=== PATIENT | male | born 1945 | race Two or more races ===

== ENCOUNTER 2024-01-30 12:13 | Outpatient (AMB) | payer OTHER, SELFPAY ==
--- NOTE | 2024-01-30 12:16 | HO.NEPHOV ---
Vital Signs 01/30/24 12:17 Height 5 ft 6 in Weight 197 lb 6 oz BMI 31.9 BP 118/80 Blood Pressure Location Lt brachial Position Sitting Pulse 68 Pulse Source Pulse Oximeter Pulse Oximetry (%) 96 Oxygen Delivery Method Room Air Intake Visit Reasons: Continuing care-Renal Stone/Renal cyst Dairy Manufacturing Technologist Required: Yes Dairy Manufacturing Technologist Services: Dairy Manufacturing Technologist Present Accompanied by: Self / Same As Patient Allergies No Known Allergies Allergy (Verified 01/30/24 12:19) HPI Comments Details: I had the privilege of seeing Kirby with history of renal stones and renal cysts. He had moved from [place] about 5 years ago. He has not had any symptomatic episode of renal calculus for a long time. He is a diabetic and has hypertension. He does not take nonsteroidal anti-inflammatories on a regular basis and try to maintain good hydration. He does not have any hematuria, edema, hypercalcemia. His serum creatinine been stable , last one being 1.16. He did not have any new systemic complaints at the time of this office visit. [facility] Medical History (Updated 01/30/24 @ 12:29 by Paul Whyte MD) Transient cerebral ischemia Primary open angle glaucoma Parkinson's disease Meckels diverticulum Hypothyroidism Hypercholesterolemia Fatty liver Hypertension Diverticulitis DM w/o complication type II Renal cyst Age-related nuclear cataract, bilateral Surgical History (Updated 01/30/24 @ 08:48 by Zena Pinto MA) History of colonoscopy Social History (Updated 01/30/24 @ 12:23 by Zena Pinto MA) Alcohol intake: never Patient Tobacco Use Status: Never used Tobacco Use of substances other than those prescribed or required for medical reasons: No Review of Systems Const All systems reviewed & are unremarkable except as noted in HPI and below Physical Exam Vital Signs: Last Vital Signs Pulse 68 01/30/24 12:17 BP 118/80 01/30/24 12:17 Pulse Ox 96 01/30/24 12:17 Oxygen Delivery Method Room Air 01/30/24 12:17 BMI result Body Mass Index 31.9 Const General: comfortable and no acute distress Orientation/consciousness: patient oriented x3 HEENT Head: Yes normocephalic Mouth: Normal oral and palatal mucosa present Eyes EOM: EOMs intact bilaterally Neck Neck: Yes supple Resp Auscultation: clear to auscultation bilaterally Cardio Jugular venous distension: no JVD Rate: regular rate GI Palpation (GI): Soft to palpation Auscultation: normal bowel sounds General: Yes no CVA tenderness Back/Spine/Pelvis Back: no CVA tenderness Skin General skin exam: no rashes or lesions noted Neuro General: patient oriented x3 and moves all extremities Extrem General: Yes no pedal edema Results Reviewed Nephrology Results: No Data to Display Assessment & Plan Assessment & Plan (1) Renal calculus: Code(s): N20.0 - Calculus of kidney Category: Medical (2) Renal cyst: Code(s): N28.1 - Cyst of kidney, acquired Category: Medical (3) Hypertension: Code(s): I10 - Essential (primary) hypertension Category: Medical Qualifiers: Hypertension type: primary hypertension Qualified Code(s): I10 - Essential (primary) hypertension Plan Kirby has history hypertension, renal cyst and renal calculus. His blood pressure is at goal. He has no family history of renal stones or renal cyst. He has no family history of any cystic renal disease, ESRD or renal transplant. His renal functions is stable with serum creatinine of 1.16. His blood pressure is at goal. He is tolerating SILVIA-inhibitor. He has no proteinuria. He should maintain good hydration and keep with low-sodium diet. He should maintain appropriate blood sugar and blood pressure goals. He should eat more fruits and vegetables and consume less meat. He may need hydrochlorothiazide and or potassium citrate in the future. I plan to order imaging of his kidneys after next visit. I did not make any medication changes today. Follow-up appointment given. Answered all questions. Orders: Orders Calcium Today I10 - Essential (primary) hypertension, N20.0 - Calculus of kidney, N28.1 - Cyst of kidney, acquired Creatinine Today I10 - Essential (primary) hypertension, N20.0 - Calculus of kidney, N28.1 - Cyst of kidney, acquired Creatinine 6 Months I10 - Essential (primary) hypertension, N20.0 - Calculus of kidney, N28.1 - Cyst of kidney, acquired Electrolytes Today I10 - Essential (primary) hypertension, N20.0 - Calculus of kidney, N28.1 - Cyst of kidney, acquired Blood Urea Nitrogen Today I10 - Essential (primary) hypertension, N20.0 - Calculus of kidney, N28.1 - Cyst of kidney, acquired Blood Urea Nitrogen 6 Months I10 - Essential (primary) hypertension, N20.0 - Calculus of kidney, N28.1 - Cyst of kidney, acquired Electrolytes 6 Months I10 - Essential (primary) hypertension, N20.0 - Calculus of kidney, N28.1 - Cyst of kidney, acquired Coding Level of Care Code Est Pt Level 4 (54814) Diagnoses Renal calculus N20.0 Renal cyst N28.1 Primary hypertension I10 Hypertension type: primary hypertension
[2024-01-30 12:17] VITALS: BP 118/80; PULSE 68; O2SAT 96; BMI 31.9
== END 2024-01-30 12:43 | disposition home or self-care (01) ==
PROVIDERS: PCP Physician Assistant Medical; Visit Provider Internal Medicine Nephrology
DX: N20.0 Calculus of kidney (principal); N28.1 Cyst of kidney, acquired; I10 Essential (primary) hypertension
CPT/HCPCS: 99214

== ENCOUNTER → 2024-01-30 12:13 | Outpatient (BNVA) | payer OTHER, SELFPAY | PROVIDERS: PCP Physician Assistant Medical; Visit Provider Internal Medicine Nephrology | DX: N20.0 Calculus of kidney (principal); N28.1 Cyst of kidney, acquired; E11.9 Type 2 diabetes mellitus without complications; I10 Essential (primary) hypertension | CPT/HCPCS: 99212 ==

== ENCOUNTER 2024-08-15 08:48 | Outpatient (REF) | payer OTHER, SELFPAY ==
--- OUTSIDE RECORDS SUMMARY | 2024-08-15 09:01 | XMS_ITS | Encounter Summary ---
Author Organization [facility] Address [address] [place] [address] Care Team Providers Care Certified Lactation Educator Name Role Phone Fidencio Gray PA-C Primary Care Provider [phone] Reason for Visit * Reason Comments Dental Diagnostic Exam L-side cheek larg e round red area 2days Encounter Details Date Type Department Care Team (Late st Contact Info) Description 08/08/2024 11:00 AM EST Office Visit [facility] [address] [place] [phone] Candice Gonzalez Y [address] [place] [address] Encounter for dental examination (Primary Dx); Ill-fitting dentures Social History Tobacco Use Types Packs/Day Years Used Date Smoking Tobacco: Never Smokeless Tobacco: Never Alcohol Use Standard Drinks/Week Comments Never 0 (1 standard drink = 0.6 oz pur e alcohol) Social Connections Answer Date Recorded Connectedness 1 01/15/2024 Financial Resource Strain Answer Date R ecorded Financial Resource Strain 1 2023 Stress Answer Date Recorded Stress 1 01/15/2024 Physical Activity Answer Date Recorded Physical Activity 0 09/23/2020 Food Insecurity Answer Date Recorded Food 1 01/15/2024 Transportation Needs Answer Date Record ed Transportation 1 01/15/2024 Housing Stability Answer Date Recorded Housing 1 01/15/2024 Safety and Environment Answer Date Francesco rded Safety 1 09/13/2023 Utilities Answer Date Recorded Utilities 1 01/15/2024 Employment Answer Date Recorded Stress 0 09/23/2020 Sex and Gender Information Value Date Recorded Sex Assigned at Male 01/10/2019 11:27 AM PDT Legal Sex Male 8:34 AM PDT Gender Identity Male 01/10/2019 11:27 AM PDT Sexual Orientation Straight 01/10/2019 11 :27 AM PDT documented as of this encounter Progress Notes * Candice Gonzalez - 08/08/2024 11:21 AM EST Patient: Kirby Robb : 1945 08/08/2024 11:23 AM EST Dental Limited Exam Chief Complaint Patient presents with ??? Dental Diagnostic Exam L-side cheek large round red area 2days Alerts: None Allergies: Patient has no known allergies. 03/21/2024 2:12 PM BP (!) 150/102 Pulse (!) 101 Radiographs:NA Subjective: Chief Complaint: L-side large bump Duration: 2 day(s) Objective: Clinical/Radiographic findings: Likely traumatic lesion l-side buccal mucosa Plan/Tx: Limited exam. Discussed with pt findings, treatment options, risks, benefits, alternatives. examined the patient Dx likely traumatic lesion, possibly due to ill fitting lower denture. Dr. Barney recommends exam for denture fitting check and follow up in 2-3wks if not improved a biopsy is advised. Referral: None Rx: No orders of the defined types were placed in this encounter. Next Visit: 3wks follow up Tissue check of buccal mucosa l-side Exam to check for ill fitting dentures EILEEN Lovett/Dr. Barney documented in this encounter Miscellaneous Notes * Patient Instructions - Candice Gonzalez - 08/08/2024 11:30 AM EST If you are not able to keep your appointment please call [phone] hours before your appointment to cancel or reschedule. documented in this encounter Plan of Treatment Upcoming Encounters Date Type Department Care Team (Late st Contact Info) Description 08/29/2024 9:00 AM EST Office Visit [facility] [address] [place] [phone] Donato Marshall DDS [address] [place] [address] documented as of this encounter Procedures Procedure Name Priority Date/Time Associated Diagnosis Comments CASE PRESENTATION SUBS DTL & EXTENSIVE TX PLN Routine 08/08/2024 11:00 AM EST Encounter for dental examination LIMITED ORAL EVALUATION - PROBLEM FOCUSED Routine 08/08/2024 11:00 AM EST Encounter for dental examination Mikhail COMPLETE DENTURE - MANDIBULAR Routine 08/08/2024 12:00 AM EST Max COMPLETE DENTURE - MAXILLARY Routine 08/08/2024 12:00 AM EST documented in this encounter Visit Diagnoses Diagnosis Encounter for dental examination- Primary Dental examination Ill-fitting dentures Problems with swallowing and mastication documented in this encounter Additional Health Concerns Assessment Noted Time PHQ-9 Depression Total Score: 0 09/13/19 24 9:01 AM PDT documented as of this encounter Care Teams Certified Lactation Educator Relationship Specialty Start Date End Date Fidencio Gray PA-C [address] [place] [address] PCP - General FAMILY MEDICINEEMMANUEL 08/26/20 documented as of this encounter
--- OUTSIDE RECORDS SUMMARY | 2024-08-15 09:01 | XMS_ITS | Clinical Summary ---
Author Organization [facility] Address [address] [place] [address] Care Team Providers Care Airplane Fueler Name Role Phone Fidencio Gray PA-C Primary Care Provider Source Comments PLEASE NOTE, if this patient is a minor, it may be UNLAWFUL to discuss sensitive information that is contained in these records (such as FAMILY PLANNING, MENTAL HEALTH or SUBSTANCE ABUSE) with the minor patient's parent or other person without the patient's specific authorization.[facility] Allergies No known active allergies Medications latanoprost (XALATAN) 0.005 % ophthalmic solution 12/15/19 21 Active timoloL (BETIMOL) 0.5 % ophthalmic solution INSTILL 1 DROP INTO BOTH EYES EVERY MORNING 07/03/19 23 Active blood sugar diagnostic stripsIndications :Controlled type 2 diabetes mellitus without complication, without long-term current use of insulin ([facility]) Use to test blood sugar once daily 100 Each 3 09/13/19 24 Active lancets (FREESTYLE LANCETS) 28 gaugeIndications: Controlled type 2 diabetes mellitus without complication, without long-term current use of insulin ([facility]) Use to check blood sugar once daily 100 Each 3 09/13/19 24 Active blood-glucose meter monitoring kitIndications:Co ntrolled type 2 diabetes mellitus without complication, without long-term current use of insulin ([facility]) as needed for blood glucose monitoring Freestyle 1 Each 09/13/19 24 Active MISCELLANEOUS MEDICAL SUPPLY MISCIndications:E ssential hypertension by miscellaneous route once daily as needed (blood pressure monitoring) Supply: 1 adult regular blood pressure monitor JUANITO: 99 Dx: htn 1 Each 09/13/19 24 Active clotrimazole (LOTRIMIN) 1 % creamIndications: Onychomycosis of multiple toenails with type 2 diabetes mellitus ([facility]) Apply topically 2 (two) times daily 15 g 2 09/13/19 24 Active cetirizine (ZYRTEC) 10 mg tabletIndications :Allergic rhinitis, unspecified seasonality, unspecified trigger TOME MARTIN TABLETA TODOS LOS MEJÍA 90 Tablet 1 01/15/20 24 Active SENNA 8.6 mg tablet TOME MARTIN TABLETA TODOS LOS D ASS Authorized by: RICK FERREIRA 01/21/20 24 Active hydrocortisone 2.5 % cream APPLY TO FACE 2 TIMES DAILY NEEDED FOR FLARES DECREASE TO DAILY/EVERY OTHER IMPROVES Authorized by: GAYLE QUINN 11/16/19 24 Active primidone (MYSOLINE) 50 mg tabletIndications :Parkinson's disease, unspecified whether dyskinesia present, unspecified whether manifestations fluctuate ([facility]) TOME 1 TABLETA POR VIA ORAL TODOS LOS MEJÍA AL ACOSTARSE 90 Tablet 1 06/03/20 24 Active lisinopriL 20 mg tabletIndications :Essential hypertension TOME 1 TABLETA POR VIA ORAL TODOS LOS MEJÍA 90 Tablet 1 06/21/20 [address] Active aspirin [address] tabletIndications :Essential hypertension TOME 1 TABLETA POR VIA ORAL TODOS LOS MEJÍA 90 Tablet 1 06/21/20 24 Active famotidine (PEPCID) 40 mg tabletIndications :Gastroesophageal reflux disease, unspecified whether esophagitis present TOME 1 TABLETA POR VIA ORAL TODOS LOS MEJÍA 90 Tablet 1 06/29/20 24 Active atorvastatin (LIPITOR) 40 mg tabletIndications :Hypercholesterol emia TOME 1 TABLETA POR VIA ORAL TODOS LOS MEJÍA AL ACOSTARSE 90 Tablet 1 06/29/20 24 Active levothyroxine 100 mcg tabletIndications :Hypothyroidism, unspecified type Take 1 Tablet by mouth once daily 90 Tablet 1 07/29/19 25 Active zolpidem (AMBIEN) 5 mg tabletIndications :Primary insomnia Take 1 Tablet by mouth nightly at bedtime as needed for sleep 30 Tablet 5 07/29/19 25 Active ipratropium-albut Hailey (COMBIVENT RESPIMAT) 20-100 mcg/actuation inhalerIndication s:Bronchitis Inhale 1 Puff into the lungs 4 (four) times daily 4 g 3 08/14/19 25 Active SITagliptin phosphate (JANUVIA) 100 mg tabletIndications :Controlled type 2 diabetes mellitus without complication, without long-term current use of insulin ([facility]) TOME MARTIN TABLETA TODOS LOS MEJÍA 90 Tablet 1 08/14/19 25 Active emollient combination no.43 (PROMISEB) creaIndications:X erosis of skin Apply 1 Application topically nightly at bedtime 30 g 2 08/14/19 25 Active ipratropium-albut Hailey (COMBIVENT RESPIMAT) 20-100 mcg/actuation inhalerIndication s:Bronchitis Inhale 1 Puff into the lungs 4 (four) times daily 4 g 3 01/15/20 24 025 Discontin ued(Reord er (E-Cancel Not Sent)) levothyroxine 100 mcg tabletIndications :Hypothyroidism, unspecified type Take 1 Tablet by mouth once daily 90 Tablet 1 01/15/20 24 025 Discontin ued(Reord er (E-Cancel Not Sent)) SITagliptin phosphate (JANUVIA) 100 mg tabletIndications :Controlled type 2 diabetes mellitus without complication, without long-term current use of insulin ([facility]) TOME MARTIN TABLETA TODOS LOS MEJÍA 90 Tablet 1 01/15/20 24 025 Discontin ued(Reord er (E-Cancel Not Sent)) zolpidem (AMBIEN) 5 mg tabletIndications :Primary insomnia Take 1 Tablet by mouth nightly at bedtime as needed for sleep 30 Tablet 5 01/15/20 24 025 Discontin ued(Reord er (E-Cancel Not Sent)) Active Problems Problem Noted Date Diagnosed Date Aspirin long-term use 08/07/2023 Squamous cell carcinoma, face 08/07/2023 History of actinic keratoses 04/19/2023 Renal stone 07/26/2022 10/18/2022 Controlled type 2 diabetes m ellitus without complication, without long-term current use of insulin ([facility]) 01/13/2022 Obesity, Class I, BMI 30-34.9 01/13/2022 Pre-operative clearance 01/08/2021 Primary open angle glaucoma (POAG) of both eyes, moderate stage 04/30/2019 Age-related nuclear cataract of both eyes 2018 TIA (transient ischemic attack) 04/30/2019 Overview (04/30/2019): Pt had TIA 2016 Essential hypertension 01/10/2019 Hypercholesterolemia 01/10/2019 Parkinson's disease ([facility]) 01/10/2019 Hypothyroidism 01/10/2019 History of colonoscopy 01/10/2019 Overview (01/10/2019): Done in [place] per pt 2017 Encounters Date Type Department Care Team Description 08/14/2024 2:00 PM EST Office Visit [facility] [address] [place] [phone] Fidencio Gray PA-C Hypothyroidism, unspecified type (Primary Dx); Essential hypertension; Hypercholesterolemia; Controlled type 2 diabetes mellitus without complication, without long-term current use of insulin ([facility]); Bronchitis; Xerosis of skin 08/08/2024 11:00 AM EST Office Visit [facility] [address] [place] [phone] Candice Gonzalez Encounter for dental examination (Primary Dx); Ill-fitting dentures from Last 3 Months Immunizations Name Administration Dates Next Due Flu, High Dose, 65y+, Fluzon e High Dose 06/08/2023,04/27/2021,03/10/2020,0902/2020 Flu, Preservative Free 04/19/2022 Hep B, Adult/Adol (ENERGIX/RECOMBIVAX) 07/23/2019,06/21/2019 12/23/2019 Hep B,adult,adjuvanted (HEPLISAV) 05/22/2023 Influenza (FLUZONE), high-do se, trivalent, PF 05/15/2024,06/28/2019,06/28/2019 Moderna COVID-19 Vaccine, re d cap blue label, 12+ Primary Series 02/16/2022,06/07/2021,09/12/2020,08/03 PNEUMOCOCCAL CONJUGATE PCV 13 06/21/2019 PNEUMOCOCCAL POLYSACCHARIDE PPV23 04/27/2021 TDAP 06/21/2019 ZOSTER VACCINE, RECOMBINANT (SHINGRIX) 10/18/2022,07/20/2022 Family History Medical History Relation Name Comments High Cholesterol Sister Hypertension Sister Relation Name Status Comments Brother Alive Father Mother Sister Alive Social History Tobacco Use Types Packs/Day Years Used Date Smoking Tobacco: Never Smokeless Tobacco: Never Tobacco Cessation:Counseling Given: No Alcohol Use Standard Drinks/Week Comments Never 0 (1 standard drink = 0.6 oz pur e alcohol) Social Connections Answer Date Recorded Connectedness 1 08/14/2024 Financial Resource Strain Answer Date R ecorded Financial Resource Strain 1 2024 Stress Answer Date Recorded Stress 1 08/14/2024 Physical Activity Answer Date Recorded Physical Activity 0 09/23/2020 Food Insecurity Answer Date Recorded Food 1 08/14/2024 Transportation Needs Answer Date Record ed Transportation 1 08/14/2024 Housing Stability Answer Date Recorded Housing 1 08/14/2024 Safety and Environment Answer Date Francesco rded Safety 1 09/13/2023 Utilities Answer Date Recorded Utilities 1 08/14/2024 Employment Answer Date Recorded Stress 0 09/23/2020 Sex and Gender Information Value Date Recorded Sex Assigned at Male 01/10/2019 11:27 AM PDT Legal Sex Male 8:34 AM PDT Gender Identity Male 01/10/2019 11:27 AM PDT Sexual Orientation Straight 01/10/2019 11 :27 AM PDT Last Filed Vital Signs Vital Sign Reading Time Taken Comments Blood Pressure 132/80 08/14/2024 2:13 PM EST Pulse 70 08/14/2024 2:13 PM EST Temperature 36.6 ??C (97.9 ??F) 08/14/2024 2:13 PM ES T Respiratory Rate 18 08/14/2024 2:13 PM EST Oxygen Saturation 98% 08/14/2024 2:13 PM EST Inhaled Oxygen Concentration - - Weight 91 kg (200 lb 9.6 oz) 08/14/2024 2:13 PM EST Height 167.6 cm (5' 6 ) 08/14/2024 2:13 PM EST Body Mass Index 32.38 08/14/2024 2:13 PM EST Plan of Treatment Upcoming Encounters Date Type Department Care Team (Late st Contact Info) Description 08/29/2024 9:00 AM EST Office Visit [facility] [address] [place] [phone] Donato Marshall, DDS [address] [place] [address] Health Maintenance Due Date Last Done Comments Dental Examination [address] Colonography 1989 FIT/gFOBT 1989 Fecal DNA 1989 Flexible Sigmoidoscopy 1989 Diabetes Microalbumin (w/Creatinine) 11/01/2023 10/31/2022, 04/28/2021 Ndc-INAOG-04 ( season) 2024 02/16/2022, 06/07/2021, 09/12/2020, Additional history exists Diabetes HbA1c 03/15/2024 09/13/2023, 05/04, 10/31/2022, Additional history exists Lipid Screening 09/12/2024 09/13/2023, 050 07/2022, 07/20/2022, Additional history exists Medicare Annual Wellness Visit 09/12/2024 0 09/13/2023, 01/13/2022, 09/23/2020, Additional history exists Serum Creatinine 09/12/2024 09/13/2023, , 01/16/2023, Additional history exists TSH Monitoring 09/12/2024 09/13/2023, 12/31, 04/28/2021, Additional history exists Falls Prevention 01/14/2025 01/15/2024, , 09/23/2020, Additional history exists Tobacco Screening 01/14/2025 01/15/2024 Diabetes Foot Exam 04/05/2025 04/05/2024, 0 12/05/2023, 01/27/2023 Imm-DTaP/Tdap/Td (2 - Td or Tdap) 06/21/2029 019 Colonoscopy 04/27/2032 04/27/2022, 04/03, 03/06/2017 (Managed by Outside Provider) Colorectal Cancer Screening 04/27/2032 Imm-Pneumococcal 65+ Completed 04/27/2021, 06/21/20 Imm-Zoster, Recombinant Completed 10/18/2022, 07/20 Imm-Hepatitis B Completed 05/22/2023, 07/04, 06/21/2019 Imm-Influenza Completed 05/15/2024, 12/2022, 04/19/2022, Additional history exists Alcohol and Drug Screen Completed 08/14/19, 01/15/2024, 08/01/2023, Additional history exists Depression Annual Screen Completed 08/14/2024 Procedures Procedure Name Priority Date/Time Associated Diagnosis Comments LIMITED ORAL EVALUATION - PROBLEM FOCUSED Routine 08/08/2024 11:00 AM EST Encounter for dental examination CASE PRESENTATION SUBS DTL & EXTENSIVE TX PLN Routine 08/08/2024 11:00 AM EST Encounter for dental examination Mikhail COMPLETE DENTURE - MANDIBULAR Routine 08/08/2024 12:00 AM EST Max COMPLETE DENTURE - MAXILLARY Routine 08/08/2024 12:00 AM EST UPPER GI ENDOSCOPY (EGD) SCANNED DOCUMENT 07/15/2024 3:00 AM EST UPPER GI ENDOSCOPY (EGD) SCANNED DOCUMENT 07/15/2024 3:00 AM EST THYROID CASCADING REFLEX PANEL Routine 09/13/2023 9:40 AM EDT Annual physical exam Hypothyroidism, unspecified type COMPREHENSIVE METABOLIC PANEL Routine 09/13/2023 9:40 AM EDT Annual physical exam Controlled type 2 diabetes mellitus without complication, without long-term current use of insulin ([facility]) Hypercholesterolemia Essential hypertension LIPID PANEL Routine 09/13/2023 9:40 AM EDT Annual physical exam Controlled type 2 diabetes mellitus without complication, without long-term current use of insulin ([facility]) Hypercholesterolemia Essential hypertension HEMOGLOBIN GLYCOSYLATED A1C Routine 09/13/2023 9:40 AM EDT Annual physical exam Controlled type 2 diabetes mellitus without complication, without long-term current use of insulin ([facility]) MICROALBUMIN/CREATINI NE RATIO, URINE, RANDOM Routine 10/31/2022 8:38 AM EDT Controlled type 2 diabetes mellitus without complication, without long-term current use of insulin ([facility]) HISTORIC COLONOSCOPY 04/27/2022 3:00 AM EDT from Last 3 Months or Most Recently Relevant to Health Maintenance Results * UPPER GI ENDOSCOPY (EGD) SCANNED DOCUMENT (07/15/2024 3:00 AM EST) 07/15/2024 3:00 AM EST [employer] Gray PA-C SCAN PROCEDURES Final Result * UPPER GI ENDOSCOPY (EGD) SCANNED DOCUMENT (07/15/2024 3:00 AM EST) 07/15/2024 3:00 AM EST Bitstampr Gray PA-C SCAN PROCEDURES Final Result * THYROID CASCADING REFLEX PANEL (09/13/2023 9:40 AM EDT) TSH 1.94 0.40 - 4.50 mIU/L [facility] Blood Blood / Unknown 09/13/2023 9:40 AM EDT 09/13/2023 9:41 AM EDT Narrative [facility] - 09/14/2023 9:43 AM EDT FASTING:YES [employer] PA-C LAB - BLOOD DRAW Edited Resu lt - Final [facility] [address] [place] [phone], [facility] [address] [place] [phone] * (ABNORMAL) HEMOGLOBIN GLYCOSYLATED A1C (09/13/2023 9:40 AM EDT) HEMOGLOBIN A1C 6.4(H) <5.7 % of total Hgb [facility] Comment: For someone without known diabetes, a hemoglobin A1c value between 5.7% and 6.4% is consistent with prediabetes and should be confirmed with a follow-up test. For someone with known diabetes, a value <7% indicates that their diabetes is well controlled. A1c targets should be individualized based on duration of diabetes, age, comorbid conditions, and other considerations. This assay result is consistent with an increased risk of diabetes. Currently, no consensus exists regarding use of hemoglobin A1c for diagnosis of diabetes for children. Blood Blood / Unknown 09/13/2023 9 :40 AM EDT 09/13/2023 9:41 AM EDT Narrative [facility] - 09/14/2023 9:43 AM EDT FASTING:YES Fidencio Gray PA-C LAB - BLOOD DRAW Edited Resu lt - Final [facility] [address] [place] [phone], [facility] [address] [place] [phone] * (ABNORMAL) LIPID PANEL (09/13/2023 9:40 AM EDT) [facility] CHOLESTEROL, TOTAL 105 <200 mg/dL [facility] HDL CHOLESTEROL 34(L) > OR = 40 mg/dL [facility] TRIGLYCERIDES 99 <150 mg/dL [facility] LDL-CHOLESTEROL 53 99 mg/dL (calc) [facility] Comment: Reference range: <100 Desirable range <100 mg/dL for primary prevention; ?? <70 mg/dL for patients with CHD or diabetic patients with > or = 2 CHD risk factors. LDL-C is now calculated using the [place]-Bee calculation, which is a validated novel method providing better accuracy than the Friedewald equation in the estimation of LDL-C. [place] LECHUGA et al. ANAMARIA. 2013;310(19): 4811-7875 (http://education.[employer] Online/faq/JSF354) CHOL/HDLC RATIO 3.1 <5.0 (calc) [facility] NON-HDL CHOLESTEROL 71 <130 mg/dL (calc) [facility] Comment: For patients with diabetes plus 1 major ASCVD risk factor, treating to a non-HDL-C goal of <100 mg/dL (LDL-C of <70 mg/dL) is considered a therapeutic option. Blood Blood / Unknown 09/13/2023 9 :40 AM EDT 09/13/2023 9:41 AM EDT Narrative [employer] [facility] - 09/14/2023 9:43 AM EDT FASTING:YES Fidencio Grya PA-C LAB - BLOOD DRAW Final Resul t [employer] [facility] [address] [address], [employer] [facility] [address] [place] [phone] * (ABNORMAL) COMPREHENSIVE METABOLIC PANEL (09/13/2023 9:40 AM EDT) [facility] GLUCOSE 125(H) 65 - 99 mg/dL [employer] [facility] Comment: ?Fasting reference interval For someone without known diabetes, a glucose value between 100 and 125 mg/dL is consistent with prediabetes and should be confirmed with a follow-up test. UREA NITROGEN (BUN) 19 7 - 25 mg/dL [employer] CREATININE (blood) 1.19 0.70 - 1.28 mg/dL [employer] EGFR 62 > OR = 60 mL/min/1. 73m2 [employer] [facility] BUN/CREATININE RATIO SEE NOTE: [employer] [facility] Comment: ?? Not Reported: BUN and Creatinine are within ?? reference range. ? SODIUM 140 135 - 146 mmol/L [employer] [facility] POTASSIUM 4.5 3.5 - 5.3 mmol/L [facility] CHLORIDE 102 98 - 110 mmol/L [facility] CARBON DIOXIDE 31 20 - 32 mmol/L [facility] CALCIUM 9.8 8.6 - 10.3 mg/dL [facility] PROTEIN, TOTAL 7.3 6.1 - 8.1 g/dL [facility] ALBUMIN 4.4 3.6 - 5.1 g/dL [facility] GLOBULIN 2.9 1.9 - 3.7 g/dL (calc) [facility] ALBUMIN/GLOBULI N RATIO 1.5 1.0 - 2.5 (calc) [facility] BILIRUBIN, TOTAL 0.9 0.2 - 1.2 mg/dL [facility] ALKALINE PHOSPHATASE 79 35 - 144 U/L [employer] [facility] AST 22 10 - 35 U/L [facility] ALT 19 9 - 46 U/L [facility] Blood Blood / Unknown 09/13/2023 9 :40 AM EDT 09/13/2023 9:41 AM EDT Narrative [facility] [employer] [facility] - 09/14/2023 9:43 AM EDT FASTING:YES us Fidencio Gray PA-C LAB - BLOOD DRAW Final Resul t Performing Organization Address [facility] de Phone Number [employer] [address] [address], [employer] [address] [phone] * MICROALBUMIN/CREATININE RATIO, URINE, RANDOM (10/31/2022 8:38 AM EDT) CREATININE, RANDOM URINE 156 20 - 320 mg/dL [facility] MICROALBUMIN 0.8 mg/dL [employer] [facility] Comment: Reference Range Not established MICROALBUMIN/CREA TININE RATIO, RANDOM URINE 5 <30 mcg/mg creat [facility] Comment: The ADA defines abnormalities in albumin excretion as follows: Albuminuria Category ?Result (mcg/mg creatinine) Normal to Mildly increased ?? <30 Moderately increased ? 30-299 Severely increased ? > OR = 300 The ADA recommends that at least two of three specimens collected within a 3-6 month period be abnormal before considering a patient to be within a diagnostic category. Urine Urine specimen / Unknown 10/31/2022 8:38 AM EDT 10/31/2022 8:39 AM EDT us Fidencio Gray PA-C LAB - NO BLOOD DRAW Final Re sult Performing Organization Address [facility] Co de Phone Number [employer] [address] [address], [employer] [address] [phone] * HISTORIC COLONOSCOPY (04/27/2022 3:00 AM EDT) 04/27/2022 3:00 AM EDT Roberto Fiore MD PROCEDURES Final Result from Last 3 Months or Most Recently Relevant to Health Maintenance Insurance [facility] Member Subscriber Plan / Payer ( fective 2018-Present) Name:Kirby Fierro Relation to Subscriber:Self Name:Kirby Fierro Payer ID:[id number] Group ID:Not on file Type:Indemnity Address: [address] [place] [address] [facility] - DENTAL Care Teams Airplane Fueler Relationship Specialty Start Date End Date Fidencio Gray PA-C [address] [place] [address] PCP - General FAMILY MEDICINEEMMANUEL 08/26/20
--- OUTSIDE RECORDS SUMMARY | 2024-08-15 09:02 | XMS_ITS | Clinical Summary ---
Author Organization [facility] Address [address] [facility] [address] [place] [address] Phone Care Team Providers Care Material Scheduler Name Role Phone Fidencio Gray PA-C Primary Care Provider Allergies No known active allergies Medications Aspirin Low Dose 81 MG EC tablet Take 81 mg by mouth 1 (one) time each day 05/07/2022 Active atorvastatin (LIPITOR) 40 MG tablet Take 40 mg by mouth 1 (one) time each day 05/31/2022 Active famotidine (PEPCID) 40 MG tablet Take 40 mg by mouth 1 (one) time each day 04/19/2022 Active hydrOXYzine (ATARAX) 50 MG tablet Take 1 tablet by mouth at night if needed 06/16/2022 Active levothyroxine (SYNTHROID, LEVOTHROID) 100 MCG tablet Take 100 mcg by mouth 1 (one) time each day 06/04/2022 Active lisinopril 20 MG tablet Take 20 mg by mouth 1 (one) time each day 05/04/2022 Active loratadine (CLARITIN) 10 MG tablet Take 1 tablet by mouth 1 (one) time each day 07/05/2022 Active Januvia 100 MG tablet Take 100 mg by mouth 1 (one) time each day 06/28/2022 Active Ventolin HFA 108 (90 Base) MCG/ACT inhaler if needed 10/26/2022 Act jalyn acetaminophen (TYLENOL) 325 MG tablet if needed 10/23/2022 Active linaCLOtide (Linzess) 290 MCG capsule Take 1 tablet by mouth 1 (one) time each day Active Active Problems Problem Noted Date Diagnosed Date Renal stone 07/26/2022 Resolved Problems Problem Noted Date Diagnosed Date Resolved Date Fatty liver 04/21/2022 07/26/2022 Meckel's diverticulum 04/21/2022 01/24/ 2023 Bilateral age-related nuclear cataracts 04/30/2019 07/26/2022 Primary open angle glaucoma 04/30/2019 07/26/2022 Immunizations Name Administration Dates Next Due Hepatitis B 07/23/2019,06/21/2019 Influenza Split High Dose Pr eservative Free IM 06/28/2019 Influenza, Quadrivalent, Pre servative Free 04/19/2022 Moderna SARS-COV-2 02/16/2022, 1,09/12/2020,08/15 Pneumococcal Conjugate 13-Valent 06/21/2019 Pneumococcal Polysaccharide 04/27/2021 Shingrix 07/20/2022 Tdap 06/21/2019 Social History Tobacco Use Types Packs/Day Years Used Date Smoking Tobacco: Never Smokeless Tobacco: Never Tobacco Cessation:Counseling Given: Not Answered Alcohol Use Standard Drinks/Week Comments Never 0 (1 standard drink = 0.6 oz pur e alcohol) Sex and Gender Information Value Date Recorded Sex Assigned at Not on file Legal Sex Male 8:40 AM EDT Gender Identity Not on file Sexual Orientation Not on file Last Filed Vital Signs Vital Sign Reading Time Taken Comments Blood Pressure 120/70 01/26/2023 2:12 PM EDT Pulse 55 01/26/2023 2:12 PM EDT Temperature - - Respiratory Rate - - Oxygen Saturation - - Inhaled Oxygen Concentration - - Weight 92 kg (202 lb 12.8 oz) 01/26/2023 2:12 PM EDT Height - - Body Mass Index - - Plan of Treatment Health Maintenance Due Date Last Done Comments Influenza Vaccine (#1) 2024 2, 06/28/2019 Hepatitis B Vaccine Aged Out 07/23/2019, 06/21/2019 No longer eligible based on patient's age to complete this topic Pneumococcal Vaccine: 65+ Years Completed 04/27/2021, 06/21/2019 Insurance CARE DUAL SNP ([id number]) [facility] CARE DUAL SNP ([id number]) Care Teams Material Scheduler Relationship Specialty Start Date End Date Fidencio Gray PA-C [address] [place] [address] PCP - General Physician Professor Of Industrial Technology 04/20/22
--- OUTSIDE RECORDS SUMMARY | 2024-08-15 09:02 | XMS_ITS | Encounter Summary ---
Author Organization [facility] Address [address] [place] [address] Care Team Providers Care Senior Sales Director Name Role Phone Fidencio Gray PA-C Primary Care Provider Reason for Visit * Reason Comments Follow Up Follow up no concern Encounter Details Date Type Department Care Team ([facility] st Contact Info) Description 08/14/2024 2:00 PM EST Office Visit [facility] [address] [place] [phone] Fidencio Gray PA-C [address] [place], [place] [phone] Hypothyroidism, unspecified type (Primary Dx); Essential hypertension; Hypercholesterolemia; Controlled type 2 diabetes mellitus without complication, without long-term current use of insulin ([facility]); Bronchitis; Xerosis of skin Social History Tobacco Use Types Packs/Day Years [...] AM PDT documented as of this encounter Last Filed Vital Signs Vital Sign Reading [...] Mass Index 32.38 08/14/2024 2:13 PM EST documented in this encounter Miscellaneous Notes * Patient Instructions - Fidencio Gray PA-C - 08/14/2024 2:39 PM EST If you are not able to keep your appointment please call 24-48 hours before your appointment to cancel or reschedule. documented in this encounter Plan of Treatment Upcoming Encounters Date Type Department Care Team (Late st Contact Info) Description 08/29/2024 9:00 AM EST Office Visit [facility] [place] [phone] Donato Marshall, DDS [address] [place] [address] Scheduled Orders Name Type Priority Associated Diagnoses Orde r Schedule BLOOD COUNT COMPLETE AUTO&AUTO DIFRNTL WBC Lab Routine Essential hypertension Hypercholesterolemia Controlled type 2 diabetes mellitus without complication, without long-term current use of insulin ([facility]) 1 Occurrences starting 08/14/2024 until 02/10/2025 COMPREHENSIVE METABOLIC PANEL Lab Routine Essential hypertension Controlled type 2 diabetes mellitus without complication, without long-term current use of insulin ([facility] 1 Occurrences starting 08/14/2024 until 02/10/2025 HEMOGLOBIN GLYCOSYLATED A1C Lab Routine Hypercholesterolemia Controlled type 2 diabetes mellitus without complication, without long-term current use of insulin ([facility]) 1 Occurrences starting 08/14/2024 until 02/10/2025 LIPID PANEL Lab Routine Essential hypertension Hypercholesterolemia Controlled type 2 diabetes mellitus without complication, without long-term current use of insulin ([facility]) 1 Occurrences starting 08/14/2024 until 02/10/2025 THYROID CASCADING REFLEX PANEL Lab Routine Hypothyroidism, unspecified type 1 Occurrences starting 08/14/2024 until 02/10/2025 MICROALBUMIN/CREATININE RATIO, URINE, RANDOM Lab Routine Controlled type 2 diabetes mellitus without complication, without long-term current use of insulin ([facility]) Ordered: 08/14/2024 documented as of this encounter Visit Diagnoses Diagnosis Hypothyroidism, unspecified type- Primary Essential hypertension Hypercholesterolemia Pure hypercholesterolemia Controlled type 2 diabetes mellitus without complication, without long-term current use of insulin ([facility]) Bronchitis Bronchitis, not specified as acute or chronic Xerosis of skin Other specified disease of sebaceous glands documented in this encounter Additional Health Concerns Assessment Noted Time PHQ-9 Depression Total Score: 0 08/14/19 25 2:14 PM PST documented as of this encounter Care Teams Senior Sales Director Relationship Specialty Start Date End Date Fidencio Gray PA-C [address] [place] [address] PCP - General FAMILY MEDICINEEMMANUEL 08/26/20 documented as of this encounter
--- OUTSIDE RECORDS SUMMARY | 2024-08-15 09:02 | XMS_ITS | Clinical Summary ---
Author Organization [facility] Address [id number] [place] [phone] Care Team Providers Care Material Handler Loader Name Role Phone Fidencio Gray Primary Care Provider [phone] Medical History Medical History Date Comments Meckel's diverticulum DX:Meckel' s diverticulum Meckel's diverticulum DX:Meckel' s diverticulum Diverticulosis large intesti ne w/o perforation or abscess w/bleeding DX:Diverticulosis la rge intestine w/o perforation or abscess w/bleeding Diabetes mellitus type 2, co ntrolled, with complications (CMS/HCC) DX:Diabetes mellitus type 2, controlled, with complications (HCC) Fatty liver DX:Fatty liver Diverticulitis DX:Diverticuliti s Diverticulosis DX:Diverticulosi s Straining with stools DX:Straini ng with stools Social History Tobacco Use Types Packs/Day Years Used Date Smoking Tobacco: Never Assessed Sex and Gender Information Value Date Recorded Sex Assigned at Not on file Legal Sex Male 5:36 AM EST Gender Identity Not on file Sexual Orientation Not on file Obstetrics History Last Filed Vital Signs Vital Sign Reading Time Taken Comments Blood Pressure 118/58 09/14/2023 3:07 PM EDT Pulse 65 09/14/2023 3:07 PM EDT Temperature - - Respiratory Rate - - Oxygen Saturation - - Inhaled Oxygen Concentration - - Weight 87.7 kg (193 lb 6.4 oz) 09/14/2023 3:07 P M EDT Height 167.6 cm (5' 6 ) 09/14/2023 3:07 PM EDT Body Mass Index 31.22 09/14/2023 3:07 PM EDT Plan of Treatment Health Maintenance Due Date Last Done Comments DTaP,Tdap,and Td Vaccines (1 - Tdap) 1964 Hepatitis A Vaccines (1 of 2 - Risk 2-dose series) 1963 Pneumococcal Vaccine: 50+ Ye ars (1 of 2 - PCV) 1963 Zoster Vaccines (1 of 2) 1994 Hepatitis B Vaccines (1 of 3 - Risk 3-dose series) 2004 RSV Immunization Patients 60 + Years Old (1 - 1-dose 75+ series) 2019 Cholesterol Screening (Lipid Panel) 06/12/2022 Depression Screening 06/12/2022 Falls Risk Assessment 06/12/2022 Social Influencers of Health Screening 06/12/2022 COVID-19 Vaccine (1 - 2023-2 5 season) 2024 Influenza Vaccine (#1) 2024 HIB Vaccines Aged Out No longer eligi ble based on patient's age to complete this topic HPV Vaccines Aged Out No longer eligi ble based on patient's age to complete this topic IPV Vaccines Aged Out No longer eligi ble based on patient's age to complete this topic MMR Vaccines Aged Out No longer eligi ble based on patient's age to complete this topic Meningococcal ACWY Vaccine Aged Out N o longer eligible based on patient's age to complete this topic Meningococcal B Vacine Aged Out No lo nger eligible based on patient's age to complete this topic RSV Immunization Patients Un opal 20 months Aged Out No longer eligible b ased on patient's age to complete this topic Varicella Vaccines Aged Out No longer eligible based on patient's age to complete this topic Care Teams Material Handler Loader Relationship Specialty Start Date End Date Fidencio Gray PA [address] [place] [address] PCP - General 04/20/22
[2024-08-15 17:55] LABS: Anion Gap 11 (12-20); Blood Urea Nitrogen 23 mg/dL (9-16); Calcium 9.3 mg/dL (8.4-10.2); Carbon Dioxide 28 mmol/L (22-29); Chloride 106 mmol/L (96-108); Estimated Glomerular Filt Rate > 60; Potassium 4.7 mmol/L (3.3-5.1); Sodium 140 mmol/L (135-145)
== END 2024-08-15 08:49 | disposition home or self-care (01) ==
LOC: HO.HKASLDS 08:48
PROVIDERS: Visit Provider Internal Medicine Nephrology
DX: I10 Essential (primary) hypertension (principal); N20.0 Calculus of kidney; N28.1 Cyst of kidney, acquired
CPT/HCPCS: 36415; 80051; 82310; 82565; 84520

== ENCOUNTER 2024-08-20 13:00 | Outpatient (AMB) | payer OTHER, SELFPAY ==
--- NOTE | 2024-08-20 13:36 | HO.NEPHOV ---
Vital Signs 08/20/24 13:38 Height 5 ft 6 in Weight 203 lb BMI 32.8 BP 130/70 Blood Pressure Location Lt brachial Position Sitting Pulse 72 Pulse Source Pulse Oximeter Pulse Oximetry (%) 97 Oxygen Delivery Method Room Air Intake Visit Reasons: Continuing care-Renal Stone/Renal cyst/Conf Ventilation Worker Required: Yes Ventilation Worker Language: Crusher And Binder Operator Services: Ventilation Worker Present Ventilation Worker Name: [id number] Accompanied by: Self / Same As Patient Allergies No Known Allergies Allergy (Verified 08/20/24 13:38) HPI Comments Details: I had the privilege of seeing Kirby in follow up who has a history of renal stones and renal cysts. He had moved from [place] about 5 years ago. He has not had any symptomatic episode of renal calculus for a long time. He is a diabetic and has hypertension. He does not take nonsteroidal anti-inflammatories on a regular basis and try to maintain good hydration. He does not have any hematuria, edema, hypercalcemia. His serum creatinine been stable , last one being 1.0. He did not have any new systemic complaints at the time of this office visit. [facility] Medical History (Updated 01/30/24 @ 12:29 by Paul Whyte MD) Transient cerebral ischemia Primary open angle glaucoma Parkinson's disease Meckels diverticulum Hypothyroidism Hypercholesterolemia Fatty liver Hypertension Diverticulitis DM w/o complication type II Renal cyst Age-related nuclear cataract, bilateral Surgical History History of colonoscopy Social History Alcohol intake: never Patient Tobacco Use Status: Never used Tobacco Review of Systems Const All systems reviewed & are unremarkable except as noted in HPI and below Physical Exam Vital Signs: Last Vital Signs Pulse 72 08/20/24 13:38 BP 150/70 H 08/20/24 13:38 Pulse Ox 97 08/20/24 13:38 Oxygen Delivery Method Room Air 08/20/24 13:38 BMI result Body Mass Index 32.8 Const General: comfortable and no acute distress Orientation/consciousness: patient oriented x3 HEENT Head: Yes normocephalic Mouth: Normal oral and palatal mucosa present Eyes EOM: EOMs intact bilaterally Neck Neck: Yes supple Resp Auscultation: clear to auscultation bilaterally Cardio Jugular venous distension: no JVD Rate: regular rate GI Palpation (GI): Soft to palpation Auscultation: normal bowel sounds General: Yes no CVA tenderness Back/Spine/Pelvis Back: no CVA tenderness Skin General skin exam: no rashes or lesions noted Neuro General: patient oriented x3 and moves all extremities Extrem General: Yes no pedal edema Results Reviewed Nephrology Results: Sodium 140 mmol/L (135-145) 08/15/24 Potassium 4.7 mmol/L (3.3-5.1) 08/15/24 Chloride 106 mmol/L (96-108) 08/15/24 Carbon Dioxide 28 mmol/L (22-29) 08/15/24 BUN 23 mg/dL (9-16) H 08/15/24 Creatinine 1.00 mg/dL (0.5-1.4) 08/15/24 Calcium 9.3 mg/dL (8.4-10.2) 08/15/24 Assessment & Plan Assessment & Plan (1) Hypertension: Code(s): I10 - Essential (primary) hypertension Category: Medical Qualifiers: Hypertension type: primary hypertension Qualified Code(s): I10 - Essential (primary) hypertension (2) Renal calculus: Code(s): N20.0 - Calculus of kidney Category: Medical (3) Renal cyst: Code(s): N28.1 - Cyst of kidney, acquired Category: Medical Plan Kirby has history hypertension, renal cyst and renal calculus. His blood pressure is at goal. He has no family history of renal stones or renal cyst. He has no family history of any cystic renal disease, ESRD or renal transplant. His renal functions is stable with serum creatinine of 1.0. His blood pressure is at goal. He is tolerating SILVIA-inhibitor. He has no proteinuria. He should maintain good hydration and keep with low-sodium diet. He should maintain appropriate blood sugar and blood pressure goals. He should eat more fruits and vegetables and consume less meat. He may need hydrochlorothiazide and or potassium citrate in the future. I plan to order imaging of his kidneys after next visit. I did not make any medication changes today. Follow-up appointment given. Answered all questions. Orders: Orders UA and rflx microscopic 6 Months I10 - Essential (primary) hypertension, N20.0 - Calculus of kidney, N28.1 - Cyst of kidney, acquired Protein Creatinine Ratio, Ur 6 Months I10 - Essential (primary) hypertension, N20.0 - Calculus of kidney, N28.1 - Cyst of kidney, acquired Electrolytes 6 Months I10 - Essential (primary) hypertension, N20.0 - Calculus of kidney, N28.1 - Cyst of kidney, acquired Blood Urea Nitrogen 6 Months I10 - Essential (primary) hypertension, N20.0 - Calculus of kidney, N28.1 - Cyst of kidney, acquired Creatinine 6 Months I10 - Essential (primary) hypertension, N20.0 - Calculus of kidney, N28.1 - Cyst of kidney, acquired Calcium 6 Months I10 - Essential (primary) hypertension, N20.0 - Calculus of kidney, N28.1 - Cyst of kidney, acquired Coding Level of Care Code Est Pt Level 4 (64607) Diagnoses Primary hypertension I10 Hypertension type: primary hypertension Renal calculus N20.0 Renal cyst N28.1
[2024-08-20 13:38] VITALS: BP 130/70; PULSE 72; O2SAT 97; BMI 32.8
--- OUTSIDE RECORDS SUMMARY | 2024-08-20 13:54 | XMS_ITS | Encounter Summary ---
Author Organization [facility] Address [address] [place] [address] Care Team Providers Care Forestry Technical Officer Name Role Phone Fidencio Gray PA-C Primary Care Provider Reason for Visit * Reason Comments Dental Diagnostic Exam L-side cheek larg e round red area 2days Encounter Details Date Type Department Care Team (Late st Contact Info) Description 08/08/2024 11:00 AM EST [facility] Visit [facility] [address] [place] [phone] Candice Gonzalez Y [address] [place] [address] Encounter for dental examination (Primary Dx); Ill-fitting [...] Description 08/29/2024 9:00 AM EST Office Visit [facility] [address] [place] [phone] Donato Marshall DDS [address] [place] [address] documented as of this encounter Procedures Procedure [...] documented as of this encounter Care Teams Forestry Technical Officer Relationship Specialty Start Date End Date Fidencio Gray PA-C [address] [place] [address] PCP - General FAMILY MEDICINEEMMANUEL 08/26/20 documented as of this encounter
--- OUTSIDE RECORDS SUMMARY | 2024-08-20 13:54 | XMS_ITS | Encounter Summary ---
Author Organization [facility] Address [address] [place] [address] Care Team Providers Care Forest Pathology Professor Name Role Phone Fidencio Gray PA-C Primary Care Provider [phone] Reason for Visit * Reason Comments Follow Up Follow up no concern Encounter Details Date Type Department Care Team ([facility] st Contact Info) Description 08/14/2024 2:00 PM EST Office Visit [facility] [address] [place] [phone] Fidencio Gray PA-C [address] [place], [place] [phone] Hypothyroidism, unspecified type (Primary Dx); Essential hypertension; Hypercholesterolemia; Controlled type 2 diabetes mellitus without complication, without long-term current use of insulin ([facility]); Bronchitis; Xerosis of skin Social History Tobacco [...] 2:13 PM EST documented in this encounter Progress Notes * Fidencio Gray PA-C - 08/14/2024 2:24 PM EST Subjective: CC: Follow Up (Follow up no concern ) HPI: Kirby Robb is a 79 year old male patient who presents today for follow up. Forgot to get labs, reordered. Patient has labs tomorrow for GI, will get ours done after that. Has follow up for GI on 08/22. On 08/29 has appt here for dentist. Patient states had endoscopy already and that showed mild inflammation. Went to derm for face, burned a couple spots but nose is recovering great. Last 3 BP Readings: Date: BP: 08/14/2024 132/80 03/21/2024 150/102 02/07/2024 124/80 Lab Results Component Value Date TRIGLYC 99 09/13/2023 CHOL 105 09/13/2023 HDL 34 (L) 09/13/2023 LDL 53 09/13/2023 CHOLHDL 3.1 09/13/2023 NONHDL 71 09/13/2023 Lab Results Component Value Date HGBA1C 6.4 (H) 09/13/2023 HGBA1C 6.5 (H) 05/22/2023 HGBA1C 6.5 (H) 10/31/2022 No Known Allergies Patient Active Problem List Diagnosis Essential hypertension Hypercholesterolemia Parkinson's disease ([facility]) Hypothyroidism History of colonoscopy Primary open angle glaucoma (POAG) of both eyes, moderate stage Age-related nuclear cataract of both eyes TIA (transient ischemic attack) Pre-operative clearance Controlled type 2 diabetes mellitus without complication, without long-term current use of insulin ([facility]) Obesity, Class I, BMI 30-34.9 Renal stone History of actinic keratoses Aspirin long-term use Squamous cell carcinoma, face Current Outpatient Medications: ipratropium-albuteroL (COMBIVENT RESPIMAT) 20-100 mcg/actuation inhaler, Inhale 1 Puff into the lungs 4 (four) times daily, Disp: 4 g, Rfl: 3 SITagliptin phosphate (JANUVIA) 100 mg tablet, TOME MARTIN TABLETA TODOS LOS MEJÍA, Disp: 90 Tablet, Rfl: 1 levothyroxine 100 mcg tablet, Take 1 Tablet by mouth once daily, Disp: 90 Tablet, Rfl: 1 zolpidem (AMBIEN) 5 mg tablet, Take 1 Tablet by mouth nightly at bedtime as needed for sleep, Disp:30 Tablet, Rfl: 5 atorvastatin (LIPITOR) 40 mg tablet, TOME 1 TABLETA POR VIA ORAL TODOS LOS MEJÍA AL ACOSTARSE, Disp:90 Tablet, Rfl: 1 famotidine (PEPCID) 40 mg tablet, TOME 1 TABLETA POR VIA ORAL TODOS LOS MEJÍA, Disp: 90 Tablet, Rfl:[address] tablet, TOME 1 TABLETA POR VIA ORAL TODOS LOS MEJÍA, Disp: 90 Tablet, Rfl: 1 lisinopriL 20 mg tablet, TOME 1 TABLETA POR VIA ORAL TODOS LOS MEJÍA, Disp: 90 Tablet, Rfl: 1 primidone (MYSOLINE) 50 mg tablet, TOME 1 TABLETA POR VIA ORAL TODOS LOS MEJÍA AL ACOSTARSE, Disp: 90 Tablet, Rfl: 1 hydrocortisone 2.5 % cream, APPLY TO FACE 2 TIMES DAILY NEEDED FOR FLARES DECREASE TO DAILY/EVERY OTHER IMPROVES Authorized by: GAYLE QUINN, Disp: , Rfl: SENNA 8.6 mg tablet, TOME MARTIN TABLETA TODOS LOS D ASS Authorized by: RICK FERREIRA, Disp: , Rfl: cetirizine (ZYRTEC) 10 mg tablet, TOME MARTIN TABLETA TODUDLEYS, Disp: 90 Tablet, Rfl: 1 blood sugar diagnostic strips, Use to test blood sugar once daily, Disp: 100 Each, Rfl: 3 blood-glucose meter monitoring kit, as needed for blood glucose monitoring Freestyle, Disp: 1 Each,Rfl: 0 clotrimazole (LOTRIMIN) 1 % cream, Apply topically 2 (two) times daily, Disp: 15 g, Rfl: 2 lancets (FREESTYLE LANCETS) 28 gauge, Use to check blood sugar once daily, Disp: 100 Each, Rfl: 3 MISCELLANEOUS MEDICAL SUPPLY MIS, by miscellaneous route once daily as needed (blood pressure monitoring) Supply: 1 adult regular blood pressure monitor JUANITO: 99 Dx: htn, Disp: 1 Each, Rfl: 0 timoloL (BETIMOL) 0.5 % ophthalmic solution, INSTILL 1 DROP INTO BOTH EYES EVERY MORNING, Disp: , Rfl: latanoprost (XALATAN) 0.005 % ophthalmic solution, , Disp: , Rfl: Review of Systems Remainder ROS: See HPI, systems reviewed and are otherwise negative or noncontributory. Objective: Vitals: 08/14/24 1413 BP: 132/80 Pulse: 70 Resp: 18 Temp: 97.9 ??F (36.6 ??C) TempSrc: Oral SpO2: 98% Weight: 200 lb 9.6 oz (91 kg) Height: 5' 6 (1.676 m) Body mass index is 32.38 kg/m??. Physical Exam Constitutional: General: He is not in acute distress. Cardiovascular: Rate and Rhythm: Normal rate and regular rhythm. Pulmonary: Effort: Pulmonary effort is normal. No respiratory distress. Breath sounds: Normal breath sounds. Neurological: Mental Status: He is alert and oriented to person, place, and time. 08/14/2024 2:14 PM Little interest or pleasure in doing things Not at all Feeling down, depressed or hopeless [include irritable if under 18] Not at all Trouble falling or staying asleep, or sleeping too much Not at all Feeling tired or having little energy Not at all Poor appetite or overeating Not at all Feeling bad about yourself - or that you are a failure or have let yourself or your family down Notat all Trouble concentrating on things like school work, reading or watching TV? Not at all Moving or speaking so slowly that other people could have noticed? Or the opposite - being so fidgety or restless that you have been moving around a lot more than usual Not at all Thoughts you would be better off or of hurting yourself in some way Not at all If you checked off any problems, how difficult have these problems made it for you to do your work,take care of things at home, or get along with other people? Not difficult at all PHQ-9 Total Score (Auto Calculated) 0 Depression Severity: None-minimal Assessment and Plan: Kirby Robb is a 79 year old male patient who was seen today for follow up. Labs ordered, advised fasting. Advised to call with any questions or concerns. Weight management:BMI follow up plan: The patient was counseled regarding nutrition and physical activity. Counseled for healthy lifestyle, dietary habits, physical activity and regular exercise.Encouraged to make healthier eating choices with less refined carbs and smaller portions along with regular exercise 3-4x/week for at least 20-30min. Avoid fried foods, oily foods and limit foods rich in dense calories. Increase fruits and vegetables. E03.9 Hypothyroidism, unspecified type (primary encounter diagnosis) Plan : THYROID CASCADING REFLEX PANEL I10 Essential hypertension Plan : BLOOD COUNT COMPLETE AUTO&AUTO DIFRNTL WBC COMPREHENSIVE METABOLIC PANEL LIPID PANEL E78.00 Hypercholesterolemia Plan : BLOOD COUNT COMPLETE AUTO&AUTO DIFRNTL WBC HEMOGLOBIN GLYCOSYLATED A1C LIPID PANEL E11.9 Controlled type 2 diabetes mellitus without complication, without long- term current use of insulin ([facility]) Plan : MICROALBUMIN/CREATININE RATIO, URINE, RANDOM BLOOD COUNT COMPLETE AUTO&AUTO DIFRNTL WBC COMPREHENSIVE METABOLIC PANEL HEMOGLOBIN GLYCOSYLATED A1C LIPID PANEL SITAGLIPTIN PHOSPHATE 100 MG TABLET - TOME MARTIN CLARICEA TODOS LOS MEJÍA J40 Bronchitis Plan : COMBIVENT RESPIMAT 20 MCG-100 MCG/ACTUATION SOLUTION FOR INHALATION - Inhale 1 Puff into the lungs 4 (four) times daily L85.3 Xerosis of skin Plan : PROMISEB TOPICAL CREAM - Apply 1 Application topically nightly at bedtime Return in about 3 months (around 11/11/2024) for in person CPE . documented in this encounter Miscellaneous Notes * Patient Instructions - Fidencio Gray PA-C - 08/14/2024 2:39 PM EST If you are not able to keep your appointment please call 24-48 hours before your appointment to cancel or reschedule. documented in this encounter Plan of Treatment Upcoming Encounters Date Type Department Care Team (Late st Contact Info) Description 08/29/2024 9:00 AM EST Office Visit [address] [phone] Donato Marshall, DDS [address] [place], [place] [phone] Scheduled Orders Name Type Priority Associated Diagnoses Orde r Schedule BLOOD COUNT COMPLETE AUTO&AUTO DIFRNTL WBC Lab Routine Essential hypertension Hypercholesterolemia Controlled type 2 diabetes mellitus without complication, without long-term current use of insulin ([facility]) 1 Occurrences starting 08/14/2024 until 02/10/2025 COMPREHENSIVE METABOLIC PANEL Lab Routine Essential hypertension Controlled type 2 diabetes mellitus without complication, without long-term current use of insulin ([facility]) 1 Occurrences starting 08/14/2024 until 02/10/2025 HEMOGLOBIN GLYCOSYLATED A1C Lab Routine Hypercholesterolemia Controlled type 2 diabetes mellitus without complication, without long-term current use of insulin ([facility]) 1 Occurrences starting 08/14/2024 until 02/10/2025 LIPID PANEL Lab Routine Essential hypertension Hypercholesterolemia Controlled type 2 diabetes mellitus without complication, without long-term current use of insulin ([facility]) 1 Occurrences starting 08/14/2024 until 02/10/2025 THYROID CASCADING REFLEX PANEL Lab Routine Hypothyroidism, unspecified type 1 Occurrences starting 08/14/2024 until 02/10/2025 MICROALBUMIN/CREATININE RATIO, URINE, RANDOM Lab Routine Controlled type 2 diabetes mellitus without complication, without long-term current use of insulin ([facility]) Ordered: 08/14/2024 documented as of this encounter Visit Diagnoses Diagnosis Hypothyroidism, unspecified type- Primary Essential hypertension Hypercholesterolemia Pure hypercholesterolemia Controlled type 2 diabetes mellitus without complication, without long-term current use of insulin ([facility]) Bronchitis Bronchitis, not specified as acute or chronic Xerosis of skin Other specified disease of sebaceous glands documented in this encounter Additional Health Concerns Assessment Noted Time PHQ-9 Depression Total Score: 0 08/14/19 25 2:14 PM PST documented as of this encounter Care Teams Forest Pathology Professor Relationship Specialty Start Date End Date Fidencio Gray PA-C [facility] [place] [address] PCP - General FAMILY MEDICINE, [place] 08/26/20 documented as of this encounter
--- OUTSIDE RECORDS SUMMARY | 2024-08-20 13:54 | XMS_ITS | Clinical Summary ---
Author Organization [facility] Address [id number] [place] [phone] Care Team Providers Care Chemistry Laboratory Technician Name Role Phone Fidencio Gray Primary Care Provider [phone] Medical History Medical History Date Comments Meckel's [...] age to complete this topic Care Teams Chemistry Laboratory Technician Relationship Specialty Start Date End Date Fidencio Gray PA [address] [place] [address] PCP - General 04/20/22
--- OUTSIDE RECORDS SUMMARY | 2024-08-20 13:54 | XMS_ITS | Clinical Summary ---
Author Organization [facility] Address [address] [facility] [address] [place] [address] Phone Care Team Providers Care Artificial Log Machine Operator Name Role Phone Fidencio Gray PA-C Primary [...] 04/27/2021, 06/21/2019 Insurance CARE DUAL SNP ([id number]) [facility] CARE DUAL SNP ([id number]) Care Teams Artificial Log Machine Operator Relationship Specialty Start Date End Date Fidencio Gray PA-C [address] [place] [address] PCP - General Physician Compensation Vice President 04/20/22
--- OUTSIDE RECORDS SUMMARY | 2024-08-20 13:54 | XMS_ITS | Clinical Summary ---
Author Organization [facility] Address [address] [place] [address] Care Team Providers Care Huc Ob Name Role Phone Fidencio Gray PA-C Primary [...] complication, without long-term current use of insulin ([facility]) Use to test blood sugar once daily 100 Each 3 09/13/19 24 Active lancets (FREESTYLE LANCETS) 28 gaugeIndications: Controlled type 2 diabetes mellitus without complication, without long-term current use of insulin ([facility]) Use to check blood sugar once daily 100 Each 3 09/13/19 24 Active blood-glucose meter monitoring kitIndications:Co ntrolled type 2 diabetes mellitus without complication, without long-term current use of insulin ([facility]) as needed for blood glucose monitoring Freestyle 1 Each 09/13/19 24 Active MISCELLANEOUS MEDICAL SUPPLY MISCIndications:E ssential hypertension by miscellaneous route once daily as needed (blood pressure monitoring) Supply: 1 adult regular blood pressure monitor JUANITO: 99 Dx: htn 1 Each 09/13/19 24 Active clotrimazole (LOTRIMIN) 1 % creamIndications: Onychomycosis of multiple toenails with type 2 diabetes mellitus ([facility]) Apply topically 2 (two) times daily 15 [...] whether dyskinesia present, unspecified whether manifestations fluctuate ([facility]) TOME 1 TABLETA POR VIA ORAL TODOS [...] complication, without long-term current use of insulin ([facility]) TOME MARTIN TABLETA TODOS LOS MEJÍA 90 [...] complication, without long-term current use of insulin ([facility]) TOME MARTIN TABLETA TODOS LOS MEJÍA 90 [...] complication, without long-term current use of insulin ([facility]) 01/13/2022 Obesity, Class I, BMI 30-34.9 01/13/2022 Pre-operative clearance 01/08/2021 Primary open angle glaucoma (POAG) of both eyes, moderate stage 04/30/2019 Age-related nuclear cataract of both eyes 2018 TIA (transient ischemic attack) 04/30/2019 Overview (04/30/2019): Pt had TIA 2016 Essential hypertension 01/10/2019 Hypercholesterolemia 01/10/2019 Parkinson's disease ([facility]) 01/10/2019 Hypothyroidism 01/10/2019 History of colonoscopy 01/10/2019 Overview (01/10/2019): Done in [place] per pt 2017 Encounters Date Type Department Care Team Description 08/14/2024 2:00 PM EST Office Visit [facility] [address] [place] [phone] Fidencio Gray PA-C Hypothyroidism, unspecified type (Primary Dx); Essential hypertension; Hypercholesterolemia; Controlled type 2 diabetes mellitus without complication, without long-term current use of insulin ([facility]); Bronchitis; Xerosis of skin 08/08/2024 11:00 AM EST Office Visit [facility] [address] [place] [phone] Candice Gonzalez Encounter for dental examination (Primary [...] Description 08/29/2024 9:00 AM EST Office Visit [facility] [address] [place] [phone] Donato Marshall, DDS [address] [place] [address] Health Maintenance Due Date Last Done Comments Dental Examination [address] Colonography 1989 FIT/gFOBT 1989 Fecal DNA 1989 Flexible Sigmoidoscopy 1989 Diabetes Microalbumin (w/Creatinine) 11/01/2023 10/31/2022, 04/28/2021 [id number] ( season) 2024 02/16/2022, 06/07/2021, 09/12/2020, Additional [...] complication, without long-term current use of insulin ([facility]) Hypercholesterolemia Essential hypertension LIPID PANEL Routine 09/13/2023 9:40 AM EDT Annual physical exam Controlled type 2 diabetes mellitus without complication, without long-term current use of insulin ([facility]) Hypercholesterolemia Essential hypertension HEMOGLOBIN GLYCOSYLATED A1C Routine 09/13/2023 9:40 AM EDT Annual physical exam Controlled type 2 diabetes mellitus without complication, without long-term current use of insulin ([facility]) MICROALBUMIN/CREATINI NE RATIO, URINE, RANDOM Routine 10/31/2022 8:38 AM EDT Controlled type 2 diabetes mellitus without complication, without long-term current use of insulin ([facility]) HISTORIC COLONOSCOPY 04/27/2022 3:00 AM EDT from Last 3 Months or Most Recently Relevant to Health Maintenance Results * UPPER GI ENDOSCOPY (EGD) SCANNED DOCUMENT (07/15/2024 3:00 AM EST) 07/15/2024 3:00 AM EST [employer] Gray PA-C SCAN PROCEDURES Final Result * UPPER GI ENDOSCOPY (EGD) SCANNED DOCUMENT (07/15/2024 3:00 AM EST) 07/15/2024 3:00 AM EST [employer] Gray PA-C SCAN PROCEDURES Final Result * THYROID CASCADING REFLEX PANEL (09/13/2023 9:40 AM EDT) TSH 1.94 0.40 - 4.50 mIU/L [facility] Blood Blood / Unknown 09/13/2023 9 :40 AM EDT 09/13/2023 9:41 AM EDT Narrative [employer] - 09/14/2023 9:43 AM EDT FASTING:YES [employer] PA-C LAB - BLOOD DRAW Edited Resu lt - Final [employer] [address] [place] [phone], [facility] [address] [place] [phone] * (ABNORMAL) HEMOGLOBIN GLYCOSYLATED A1C (09/13/2023 9:40 AM EDT) HEMOGLOBIN A1C 6.4(H) <5.7 % of total Hgb [facility] Comment: For someone without known diabetes, a [...] AM EDT 09/13/2023 9:41 AM EDT Narrative [employer] - 09/14/2023 9:43 AM EDT FASTING:YES Fidencio Gray PA-C LAB - BLOOD DRAW Edited Resu lt - Final [employer] [address] [place] [address], [facility] [address] [place] [phone] * (ABNORMAL) LIPID PANEL (09/13/2023 9:40 AM EDT) [facility] CHOLESTEROL, TOTAL 105 <200 mg/dL [facility] HDL CHOLESTEROL 34(L) > OR = 40 mg/dL [facility] TRIGLYCERIDES 99 <150 mg/dL [facility] LDL-CHOLESTEROL 53 99 mg/dL (calc) [facility] Comment: Reference range: <100 Desirable range <100 mg/dL for primary prevention; ?? <70 mg/dL for patients with CHD or diabetic patients with > or = 2 CHD risk factors. LDL-C is now calculated using the Washington-Bee calculation, which is a validated novel method providing better accuracy than the Friedewald equation in the estimation of LDL-C. [place] LECHUGA et al. ANAMARIA. 2013;310(19): 9200-0376 (http://education.Wiziva/faq/QVO237) CHOL/HDLC RATIO 3.1 <5.0 (calc) [facility] NON-HDL CHOLESTEROL 71 <130 mg/dL (calc) [facility] Comment: For patients with diabetes plus 1 major ASCVD risk factor, treating to a non-HDL-C goal of <100 mg/dL (LDL-C of <70 mg/dL) is considered a therapeutic option. Blood Blood / Unknown 09/13/2023 9 :40 AM EDT 09/13/2023 9:41 AM EDT Narrative [employer] [facility] - 09/14/2023 9:43 AM EDT FASTING:YES Fidencio Gray PA-C LAB - BLOOD DRAW Final Resul t [employer] [facility] [address] [address], [employer] [facility] [address] [place] [address] * (ABNORMAL) COMPREHENSIVE METABOLIC PANEL (09/13/2023 9:40 AM EDT) [facility] GLUCOSE 125(H) 65 - 99 mg/dL [employer] [facility] Comment: ?Fasting reference interval For someone without known diabetes, a glucose value between 100 and 125 mg/dL is consistent with prediabetes and should be confirmed with a follow-up test. UREA NITROGEN (BUN) 19 7 - 25 mg/dL [employer] [facility] CREATININE (blood) 1.19 0.70 - 1.28 mg/dL [employer] [facility] EGFR 62 > OR = 60 mL/min/1. 73m2 [employer] [facility] BUN/CREATININE RATIO SEE NOTE: [employer] [facility] Comment: ?? Not Reported: BUN and Creatinine are within ?? reference range. ? SODIUM 140 135 - 146 mmol/L [employer] [facility] POTASSIUM 4.5 3.5 - 5.3 mmol/L [employer] [facility] CHLORIDE 102 98 - 110 mmol/L [employer] [facility] CARBON DIOXIDE 31 20 - 32 mmol/L [employer] [facility] CALCIUM 9.8 8.6 - 10.3 mg/dL [employer] [facility] PROTEIN, TOTAL 7.3 6.1 - 8.1 g/dL [employer] [facility] ALBUMIN 4.4 3.6 - 5.1 g/dL [employer] [facility] GLOBULIN 2.9 1.9 - 3.7 g/dL (calc) [employer] [facility] ALBUMIN/GLOBULI N RATIO 1.5 1.0 - 2.5 (calc) [facility] [employer] [facility] BILIRUBIN, TOTAL 0.9 0.2 - 1.2 mg/dL [employer] [facility] ALKALINE PHOSPHATASE 79 35 - 144 U/L [employer] [facility] AST 22 10 - 35 U/L [facility] ALT 19 9 - 46 U/L [facility] Blood Blood / Unknown 09/13/2023 9 :40 AM EDT 09/13/2023 9:41 AM EDT Narrative [facility] [employer] [facility] - 09/14/2023 9:43 AM EDT FASTING:YES us Fidencio Gray PA-C LAB - BLOOD DRAW Final Resul t Performing Organization Address [facility] de Phone Number [employer] [address] [address], [employer] [address] [phone] * MICROALBUMIN/CREATININE RATIO, URINE, RANDOM (10/31/2022 8:38 AM EDT) CREATININE, RANDOM URINE 156 20 - 320 mg/dL [employer] [facility] MICROALBUMIN 0.8 mg/dL [employer] [facility] Comment: Reference Range Not established MICROALBUMIN/CREA TININE RATIO, RANDOM URINE 5 <30 mcg/mg creat [employer] [facility] Comment: The ADA defines abnormalities in albumin [...] DRAW Final Re sult Performing Organization Address [facility] Co de Phone Number [facility] [employer] [address] [address], [employer] [address] [phone] * HISTORIC COLONOSCOPY (04/27/2022 3:00 AM EDT) 04/27/2022 3:00 AM EDT Roberto Fiore MD PROCEDURES Final Result from Last 3 Months or Most Recently Relevant to Health Maintenance Insurance [facility] Member Subscriber Plan / Payer ( fective 2018-Present) Name:Kirby Fierro Relation to Subscriber:Self Name:Kirby Fierro Payer ID:[id number] Group ID:Not on file Type:Indemnity Address: [address] [place] [address] [facility] Care Teams Huc Ob Relationship Specialty Start Date End Date Fidencio Gray PA-C [address] [place] [address] PCP - General FAMILY MEDICINEEMMANUEL 08/26/20
== END 2024-08-20 13:50 | disposition home or self-care (01) ==
PROVIDERS: PCP Physician Assistant Medical; Visit Provider Internal Medicine Nephrology
DX: I10 Essential (primary) hypertension (principal); N20.0 Calculus of kidney; N28.1 Cyst of kidney, acquired
CPT/HCPCS: 99214

== ENCOUNTER → 2024-08-20 13:00 | Outpatient (BNVA) | payer OTHER, SELFPAY | PROVIDERS: PCP Physician Assistant Medical; Visit Provider Internal Medicine Nephrology | DX: N20.0 Calculus of kidney (principal); I10 Essential (primary) hypertension; N28.1 Cyst of kidney, acquired | CPT/HCPCS: 99212 ==

== ENCOUNTER 2025-02-11 09:03 | Outpatient (REF) | payer OTHER, SELFPAY ==
--- OUTSIDE RECORDS SUMMARY | 2025-02-11 09:35 | XMS_ITS | Clinical Summary ---
Author Organization [facility] Address [address] [place] [address] Phone Care Team Providers Care Programming Instructor Name Role Phone Fidencio Gray Primary Care Provider [phone] Allergies No known active allergies Medications albuterol 2.5 mg /3 mL (0.083 %) nebulizer solutionIndicati ons:Mild intermittent asthma with exacerbation Take 3 mL (2.5 mg total) by nebulization every 6 (six) hours if needed for wheezing. 75 mL 5 Active Medical History Medical History Date Comments Meckel's diverticulum DX:Meckel' s diverticulum Meckel's diverticulum DX:Meckel' s diverticulum Diverticulosis large intesti ne w/o perforation or abscess w/bleeding DX:Diverticulosis la rge intestine w/o perforation or abscess w/bleeding Diabetes mellitus type 2, co ntrolled, with complications (CMS/HCC V24, CMS/HCC V28) DX:Diabetes mellitus type 2, controlled, with complications [...] Sign Reading Time Taken Comments Blood Pressure 158/81 09/11/2024 10:35 PM EDT Pulse 59 09/11/2024 10:35 PM EDT Temperature 36.6 C (97.9 F) 09/11/2024 10:35 PM EDT Respiratory Rate 18 09/11/2024 10:35 PM EDT Oxygen Saturation 97% 09/11/2024 10:35 PM EDT Inhaled Oxygen Concentration - - Weight 90.7 kg (200 lb) 09/11/2024 10:35 PM EDT Height 172.7 cm (5' 8 ) 09/11/2024 10:35 PM EDT Body Mass Index 30.41 09/11/2024 10:35 PM EDT Plan of Treatment Health Maintenance Due Date Last Done Comments Diabetes: Annual Foot Exam 1955 Diabetes: Annual Retina Eye Exam 1955 Hepatitis A Vaccines (1 of 2 - Risk 2-dose series) 1963 RSV Immunization Adult Patients (1 - 1-dose 75+ series) 2019 Falls Risk Assessment 06/12/2022 Medicare Annual Wellness Visit 06/12/2022 Social Influencers of Health Screening 06/12/2022 COVID-19 Vaccine ( season) 2024 02/16/2022, 06/07/2021, 09/12/2020, Additional history exists Depression Screening 07/03/2024 Diabetes: Blood Sugar Control Test (HGBA1C) 02/26/2025 08/29/2024 Influenza Vaccine (#1) 2025 , 06/08/2023, 04/19/2022, Additional history exists Diabetes: Annual Urine Albumin-Creatinine Ratio (uACR) 08/29/2025 08/29/2024, 10/31/2022, 04/28/2021 Diabetes: Annual GFR (Glomerular Filtration Rate) 10/08/2025 10/08/2024, 09/11/2024, 09/13/2023 Hypertension/CHF/CAD Annual BMP Blood Test 10/08/2025 10/08/2024, 09/11/2024, 09/13/2023 DTaP,Tdap,and Td Vaccines (2 - Td or Tdap) 06/21/2029 06/21/2019 Cholesterol Screening (Lipid Panel) 10/08/2029 10/08/2024, 09/13/2023, 09/13/2023, Additional history exists Pneumococcal Vaccine: 50+ Years Completed 04/27/2021, 06/21/2019 Zoster Vaccines Completed 10/18/2022, 07/20/2022 Hepatitis B Vaccines Completed 05/22/2023, 07/23/2019, 06/21/2019 HIB Vaccines Aged Out No longer eligi [...] age to complete this topic Meningococcal B Vaccine Aged Out No l onger eligible based on patient's age to complete this topic RSV Immunization Patients Under 20 months Aged Out No longer eligible based on patient's age to complete this topic Varicella Vaccines Aged Out No longer eligible based on patient's age to complete this topic Procedures Procedure Name Priority Date/Time Associated Diagnosis Comments COMPREHENSIVE METABOLIC PANEL Routine 10/08/2024 9:00 AM EDT Fatty liver LIPID PANEL WITH REFLEX TO DIRECT LDL Routine 10/08/2024 9:00 AM EDT Fatty liver from Last 3 Months or Most Recently Relevant to Health Maintenance Results * (ABNORMAL) Lipid panel with reflex to direct LDL (10/08/2024 9:00 AM EDT) Cholesterol 118 0 - 200 mg/dL LAB CHEMISTRY METHOD 10/08/2024 10:17 AM EDT [facility] Triglycerides 90 0 - 150 mg/dL LAB CHEMISTRY METHOD 10/08/2024 10:17 AM [facility] HDL 33(L) >=40 mg/dL LAB CHEMISTRY METHOD 10/08/2024 10:17 AM [facility] LDL Calculated 67 0 - 100 mg/dL LAB CHEMISTRY METHOD 10/08/2024 10:17 AM [facility] VLDL Cholesterol Adam 18 mg/dL LAB CHEMISTRY METHOD 10/08/2024 10:17 AM [facility] Non HDL Chol. (LDL+VLDL) 85 <145 mg/dL LAB CHEMISTRY METHOD 10/08/2024 10:17 AM [facility] Chol/HDL Ratio 3.6 0.0 - 4.4 LAB CHEMISTRY METHOD 10/08/2024 10:17 AM [facility] Blood Venous blood specimen / Unknown Venipuncture / Unknown 10/08/2024 9:00 AM EDT 10/08/2024 9:18 AM EDT us Christian[facility] LAB BLOOD ORDERABLES Final Resu lt [facility] [address] [place] [address], [place] [phone] * (ABNORMAL) Comprehensive metabolic panel (10/08/2024 9:00 AM EDT) Sodium 140 133 - 145 mmol/L LAB CHEMISTRY METHOD 10/08/2024 10:18 AM [facility] Potassium 4.7 3.5 - 5.5 mmol/L LAB CHEMISTRY METHOD 10/08/2024 10:18 AM [facility] Chloride 106 96 - 110 mmol/L LAB CHEMISTRY METHOD 10/08/2024 10:18 AM [facility] CO2 32 21 - 32 mmol/L LAB CHEMISTRY METHOD 10/08/2024 10:18 AM [facility] Anion Gap 2(L) 3 - 11 LAB CHEMISTRY METHOD 10/08/2024 10:18 AM [facility] Glucose 121(H) 70 - 100 mg/dL LAB CHEMISTRY METHOD 10/08/2024 10:18 AM [facility] BUN 25 5 - 25 mg/dL LAB CHEMISTRY METHOD 10/08/2024 10:18 AM [facility] Creatinine 1.26 0.70 - 1.30 mg/dL LAB CHEMISTRY METHOD 10/08/2024 10:18 AM [facility] eGFR 58(L) >=60 mL/min/1. 73m2 LAB CHEMISTRY METHOD 10/08/2024 10:18 AM [facility] Comment:Calculation based on the Chronic Kidney Disease Epidemiology Collaboration (CKD-EPI) equation refit without adjustment for race. BUN/Creatinine Ratio 19.8 LAB CHEMISTRY METHOD 10/08/2024 10:18 AM [facility] Calcium 9.5 8.5 - 10.5 mg/dL LAB CHEMISTRY METHOD 10/08/2024 10:18 AM [facility] AST (SGOT) 31 10 - 42 unit/L LAB CHEMISTRY METHOD 10/08/2024 10:18 AM [facility] ALT (SGPT) 40 10 - 60 unit/L LAB CHEMISTRY METHOD 10/08/2024 10:18 AM [facility] Alkaline Phosphatase 111 42 - 121 unit/L LAB CHEMISTRY METHOD 10/08/2024 10:18 AM [facility] Total Protein 7.4 6.0 - 8.0 g/dL LAB CHEMISTRY METHOD 10/08/2024 10:18 AM [facility] Albumin 3.8 3.2 - 5.0 g/dL LAB CHEMISTRY METHOD 10/08/2024 10:18 AM [facility] Total Bilirubin 0.8 0.0 - 1.4 mg/dL LAB CHEMISTRY METHOD 10/08/2024 10:18 AM [facility] Blood Venous blood specimen / Unknown Venipuncture / Unknown 10/08/2024 9:00 AM EDT 10/08/2024 9:18 AM EDT us Christian[facility] LAB BLOOD ORDERABLES Final Resu lt [facility] [address] [place] [address], [place] [phone] from Last 3 Months or Most Recently Relevant to Health Maintenance Insurance [facility] MEDICARE Member Subscriber Plan / Payer (Ef fective 2018-Present) Name:Kirby Fierro Relation to Subscriber:Self Name:Kirby Fierro Payer ID:[id number] Group ID:[id number] Type:Not on file Address: [place] [address] [place] [address] Care Teams Programming Instructor Relationship Specialty Start Date End Date Fidencio Gray PA [address] [place] [address] PCP - General 09/11/24
--- OUTSIDE RECORDS SUMMARY | 2025-02-11 09:35 | XMS_ITS | Clinical Summary ---
Author Organization [facility] Address [address] [facility] [address] [phone] Phone Care Team Providers Care Lathmaker Name Role Phone Fidencio Gray PA-C Primary [...] Primary open angle glaucoma 04/30/2019 07/26/2022 Immunizations Immunization Administration Dates Next Due Hepatitis B 07/23/2019,06/21/2019 [...] Date Last Done Comments Influenza Vaccine (#1) 2025 2, 06/28/2019 Hepatitis B Vaccine Aged Out 07/23/2019, 06/21/2019 No longer eligible based on patient's age to complete this topic Pneumococcal Vaccine: 50+ Years Completed 04/27/2021, 06/21/2019 Insurance Care Dual SNP ([id number]) [facility] Care Dual SNP ([id number]) Care Teams Lathmaker Relationship Specialty Start Date End Date Fidencio Gray PA-C [address] [place] [address] PCP - General Physician Facing Grinder 04/20/22
--- OUTSIDE RECORDS SUMMARY | 2025-02-11 09:35 | XMS_ITS | Clinical Summary ---
Author Organization [facility] Address [address] [place] [address] Care Team Providers Care Water Technician Name Role Phone Fidencio Gray PA-C Primary [...] Medications latanoprost (XALATAN) 0.005 % ophthalmic solution 021 Active timoloL (BETIMOL) 0.5 % ophthalmic solution INSTILL 1 DROP INTO BOTH EYES EVERY MORNING 023 Active blood sugar diagnostic stripsIndications:Cont rolled type 2 diabetes mellitus without complication, without long-term current use of insulin ([facility]) Use to test blood sugar once daily 100 Each 3 024 Active lancets (FREESTYLE LANCETS) 28 gaugeIndications:Contr olled type 2 diabetes mellitus without complication, without long-term current use of insulin ([facility]) Use to check blood sugar once daily 100 Each 3 024 Active blood-glucose meter monitoring kitIndications:Control led type 2 diabetes mellitus without complication, without long-term current use of insulin ([facility]) as needed for blood glucose monitoring Freestyle 1 Each 024 Active MISCELLANEOUS MEDICAL SUPPLY MISCIndications:Essent ial hypertension by miscellaneous route once daily as needed (blood pressure monitoring) Supply: 1 adult regular blood pressure monitor JUANITO: 99 Dx: htn 1 Each 024 Active clotrimazole (LOTRIMIN) 1 % creamIndications: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 ([facility]) Apply topically 2 (two) times daily 15 g 2 024 Active SENNA 8.6 mg tablet TOME MARTIN TABLETA TODOS LOS D ASS Authorized by: RICK FERREIRA 024 Active hydrocortisone 2.5 % cream APPLY TO FACE 2 TIMES DAILY NEEDED FOR FLARES DECREASE TO DAILY/EVERY OTHER IMPROVES Authorized by: GAYLE QUINN 024 Active emollient combination no.43 (PROMISEB) creaIndications:Xerosi s of skin Apply 1 Application topically nightly at bedtime 30 g 2 025 Active ketotifen (ZADITOR) 0.025 % (0.035 %) ophthalmic solutionIndications:Al lergic rhinoconjunctivitis Apply 1 Drop to eye 2 (two) times daily for 90 days 10 mL 1 025 Active levocetirizine (XYZAL) 5 mg tabletIndications:Choco rgic rhinoconjunctivitis Take 1 Tablet by mouth every evening for 90 days 90 Tablet 025 Active primidone (MYSOLINE) 50 mg tabletIndications:Park inson's disease, unspecified whether dyskinesia present, unspecified whether manifestations fluctuate ([facility]) TOME 1 TABLETA POR VIA ORAL TODOS LOS MEJÍA AL ACOSTARSE 90 Tablet 1 025 Active atorvastatin (LIPITOR) 40 mg tabletIndications:Hype rcholesterolemia TOME 1 TABLETA POR VIA ORAL TODOS LOS MEJÍA AL ACOSTARSE 90 Tablet 1 025 Active lisinopriL 20 mg tabletIndications:Esse ntial hypertension TOME 1 TABLETA POR VIA ORAL TODOS LOS MEJÍA 90 Tablet 1 [address] Active aspirin [address] tabletIndications:Esse ntial hypertension TOME 1 TABLETA POR VIA ORAL TODOS LOS MEJÍA 90 Tablet 1 025 Active zolpidem (AMBIEN) 5 mg tabletIndications:Prim barbara insomnia Take 1 Tablet by mouth nightly at bedtime as needed for sleep. 30 Tablet 5 06/16/2 025 Active SITagliptin phosphate (JANUVIA) 100 mg tabletIndications:Cont rolled type 2 diabetes mellitus without complication, without long-term current use of insulin ([facility]) DUNGE MARTIN ONEILA TODOS LOS MEJÍA. 90 Tablet 1 025 Active famotidine (PEPCID) 40 mg tabletIndications:Olu roesophageal reflux disease, unspecified whether esophagitis present Take 1 Tablet by mouth 2 (two) times daily. 90 Tablet 1 025 Active levothyroxine 100 mcg tabletIndications:Hypo thyroidism, unspecified type Take 1 Tablet by mouth once daily. 90 Tablet 1 025 Active ipratropium-albuteroL (COMBIVENT RESPIMAT) 20-100 mcg/actuation inhalerIndications:Bro nchitis Inhale 1 Puff into the lungs 4 (four) times daily. 4 g 3 025 Active Active Problems Problem Noted Date Diagnosed Date Bloating 12/16/2024 Aspirin long-term use 08/07/2023 Squamous cell carcinoma, face 08/07/2023 History of actinic keratoses 04/19/2023 Renal stone 07/26/2022 10/18/2022 Controlled type 2 diabetes m ellitus without complication, without long-term current use of insulin ([facility]) 01/13/2022 Obesity, Class I, BMI 30-34.9 01/13/2022 Pre-operative clearance 01/08/2021 Primary open angle glaucoma (POAG) of both eyes, moderate stage 04/30/2019 Age-related nuclear cataract of both eyes 2018 TIA (transient ischemic attack) 04/30/2019 Overview (04/30/2019): Pt had TIA 2016 Essential hypertension 01/10/2019 Hypercholesterolemia 01/10/2019 Parkinson's disease ([facility]) 01/10/2019 Hypothyroidism 01/10/2019 History of colonoscopy 01/10/2019 Overview (01/10/2019): Done in [place] per pt 2017 Encounters Date Type Department Care Team Description 12/16/2024 2:00 PM EDT Office Visit [address] [phone] Fidencio Gray PA-C 11/12/2024 4:00 PM EDT Office Visit [address] [phone] Bowen Agarwal, Marquise Lagunas from Last 3 Months Immunizations Immunization Administration Dates Next Due Flu, High Dose, 65y+, Fluzon e High Dose 06/08/2023,04/27/2021,03/10/2020,02/2020 Flu, Preservative Free 04/19/2022 Hep B, Adult/Adol (UAEJKSM-T-CLMGN/RECOMBIVAX-ADULT) 07/23/2019,06/21/2019 12/23/2019 Hep B,adult,adjuvanted (HEPLISAV) 05/22/2023 Influenza (FLUZONE), high-do se, trivalent, PF 05/15/2024,06/28/2019,06/28/2019 Moderna COVID-19 Vaccine, re d cap blue label, 12+ Primary Series 02/16/2022,06/07/2021,09/12/2020,08/03 PNEUMOCOCCAL CONJUGATE PCV 13 06/21/2019 PNEUMOCOCCAL POLYSACCHARIDE PPV23 (Pneumovax 23) 04/27/2021 TDAP 06/21/2019 ZOSTER VACCINE, RECOMBINANT (SHINGRIX) 10/18/2022,07/20/2022 Family History Medical History Relation Name Comments High Cholesterol Sister Hypertension Sister Relation Name Status Comments Brother Alive Father Mother Sister Alive Social History Tobacco Use Types Packs/Day Years Used Date Smoking Tobacco: Never Smokeless Tobacco: Never Tobacco Cessation:Counseling Given: Yes Alcohol Use Standard Drinks/Week Comments Never 0 (1 standard drink = 0.6 oz pur e alcohol) Social Connections Answer Date Recorded How often do you feel lonely or isolated from th ose around you? 1 08/14/2024 Financial Resource Strain Answer Date R ecorded Hard to pay for: Food 1 08/14/2024 Stress Answer Date Recorded Do you feel these kinds of stress these days? 1 08/14/2024 Physical Activity Answer Date Recorded Physical Activity 0 09/23/2020 Food Insecurity Answer Date Recorded Hard to pay for: Food 1 08/14/2024 Transportation Needs Answer Date Record ed Hard to pay for: Transportation 1 08/14/2024 Housing Stability Answer Date Recorded Hard to pay for: Rent/Mortgage payment 1 08/14/2024 Safety and Environment Answer Date Francesco rded Safety 1 09/13/2023 Utilities Answer Date Recorded Hard to pay for: Utilities 1 08/14 Employment Answer Date Recorded Stress 0 09/23/2020 Sex and Gender Information Value Date Recorded Sex Assigned at Male 01/10/2019 11:27 AM PDT Legal Sex Male 8:34 AM PDT Gender Identity Male 01/10/2019 11:27 AM PDT Sexual Orientation Straight 01/10/2019 11 :27 AM PDT Last Filed Vital Signs Vital Sign Reading Time Taken Comments Blood Pressure 140/64 12/16/2024 2:24 PM EDT Pulse 64 12/16/2024 2:24 PM EDT Temperature 37.1 C (98.7 F) 12/16/2024 2:24 PM EDT Respiratory Rate 16 12/16/2024 2:24 PM EDT Oxygen Saturation 96% 12/16/2024 2:24 PM EDT Inhaled Oxygen Concentration - - Weight 87.8 kg (193 lb 9.6 oz) 12/16/2024 2:24 P M EDT Height 167.6 cm (5' 6 ) 12/16/2024 2:24 PM EDT Body Mass Index 31.25 12/16/2024 2:24 PM EDT Plan of Treatment Health Maintenance Due Date Last Done Comments Dental Examination 1944 Retinopathy Screening 1957 Medicare Annual Wellness Visit 1962 CT Colonography 1989 FIT/gFOBT 1989 Fecal DNA 1989 Flexible Sigmoidoscopy 1989 Imm-RSV (adult) (1 - 1-dose 75+ series) 2019 TSH Monitoring 09/12/2024 09/13/2023, 12/31, 04/28/2021, Additional history exists Falls Prevention 01/14/2025 01/15/2024, , 09/23/2020, Additional history exists Hemoglobin A1c 02/26/2025 08/29/2024, 08/31, 05/22/2023, Additional history exists Imm-Influenza (#1) 2025 05/15/2024, 1 08/09/2022, 04/19/2022, Additional history exists Tps-EDWCR-10 ( season) 2025 02/16/2022, 06/07/2021, 09/12/2020, Additional history exists Postponed from 03/03/2024 (Patient postponement) Diabetes Foot Exam 04/05/2025 04/05/2024, 0 12/05/2023, 01/27/2023 Urine Albumin Creatinine Ratio Screening 08/29/2025 08/29/2024, 10/31/2022, 04/28/2021 Lipid Screening 10/08/2025 10/08/2024, 08/31, 10/31/2022, Additional history exists Serum Creatinine 10/08/2025 10/08/2024, 06/2025, 09/13/2023, Additional history exists Tobacco Screening 12/16/2025 12/16/2024 Imm-DTaP/Tdap/Td (2 - Td or Tdap) 06/21/2029 06/21/2019 Colonoscopy 04/27/2032 04/27/2022, 04/03, 03/06/2017 (Managed by Outside Provider) Colorectal Cancer Screening 04/27/2032 Imm-Pneumococcal 50+ Completed 04/27/2021, 06/21/20 Imm-Zoster, Recombinant Completed 10/18/2022, 07/20 Imm-Hepatitis B Completed 05/22/2023, 07/04, 06/21/2019 Alcohol and Drug Screen Completed 08/14/19, 01/15/2024, 08/01/2023, Additional history exists Depression Annual Screen Completed 08/14/2024 Procedures Procedure Name Priority Date/Time Associated Diagnosis Comments CARD SCANNED DOCUMENT 12/25/2024 3:00 AM EDT MICROALBUMIN/CREATINI NE RATIO, URINE, RANDOM Routine 08/29/2024 9:10 AM EST Controlled type 2 diabetes mellitus without complication, without long-term current use of insulin ([facility]) HEMOGLOBIN GLYCOSYLATED A1C Routine 08/29/2024 9:10 AM EST Hypercholesterolemia Controlled type 2 diabetes mellitus without complication, without long-term current use of insulin ([facility]) THYROID CASCADING REFLEX PANEL Routine 09/13/2023 9:40 AM EDT Annual physical exam Hypothyroidism, unspecified type COMPREHENSIVE METABOLIC PANEL Routine 09/13/2023 9:40 AM EDT Annual physical exam Controlled type 2 diabetes mellitus without complication, without long-term current use of insulin ([facility]) Hypercholesterolemia Essential hypertension LIPID PANEL Routine 09/13/2023 9:40 AM EDT Annual physical exam Controlled type 2 diabetes mellitus without complication, without long-term current use of insulin ([facility]) Hypercholesterolemia Essential hypertension HISTORIC COLONOSCOPY 04/27/2022 3:00 AM EDT from Last 3 Months or Most Recently Relevant to Health Maintenance Results * CARD SCANNED DOCUMENT (12/25/2024 3:00 AM EDT) 12/25/2024 3:00 AM EDT us Fidencio Gray PA-C SCAN ECGS Final Result * MICROALBUMIN/CREATININE RATIO, URINE, RANDOM (08/29/2024 9:10 AM EST) Pathologist [facility] CREATININE, RANDOM URINE 110 20 - 320 mg/dL [facility] MICROALBUMIN 0.7 mg/dL [employer] [facility] Comment: Reference Range Not established MICROALBUMIN/CREA TININE RATIO, RANDOM URINE 6 <30 mg/g creat [facility] [facility] Comment: The ADA defines abnormalities in albumin excretion as follows: Albuminuria Category Result (mg/g creatinine) Normal to Mildly increased <30 Moderately increased 30-299 Severely increased > OR = 300 The ADA recommends that at least two of three specimens collected within a 3-6 month period be abnormal before considering a patient to be within a diagnostic category. Urine Urine specimen / Unknown 08/29/2024 9:10 AM EST 08/29/2024 9:11 AM EST Narrative [facility] - 09/02/2024 6:32 AM EST DIFFICULT DRAW FASTING:YES DIFFICULT DRAW. PATIENT ADVISED TO RETURN FOR CO us Fidencio Gray PA-C LAB URINE AMBULATORY Final R esult Performing Organization Address City/[facility] Co de Phone Number [facility] [address] [place] [address], [employer] [address] [address] * (ABNORMAL) HEMOGLOBIN GLYCOSYLATED A1C (08/29/2024 9:10 AM EST) HEMOGLOBIN A1C 6.8(H) <5.7 % of total Hgb [employer] Comment: For someone without known diabetes, a hemoglobin A1c value of 6.5% or greater indicates that they may have diabetes and this should be confirmed with a follow-up test. For someone with known diabetes, a value <7% indicates that their diabetes is well controlled and a value greater than or equal to 7% indicates suboptimal control. A1c targets should be individualized based on duration of diabetes, age, comorbid conditions, and other considerations. Currently, no consensus exists regarding use of hemoglobin A1c for diagnosis of diabetes for children. Blood Blood / Unknown 08/29/2024 9 :10 AM EST 08/29/2024 9:11 AM EST Narrative [facility] - 09/02/2024 6:32 AM EST DIFFICULT DRAW FASTING:YES DIFFICULT DRAW. PATIENT ADVISED TO RETURN FOR CO us Fidencio Gray PA-C LAB - BLOOD DRAW Final Resul t Performing Organization Address City/[facility]/ZIP Co de Phone Number [employer] [facility] [address] [address], [employer] [address] [phone] * THYROID CASCADING REFLEX PANEL (09/13/2023 9:40 AM EDT) TSH 1.94 0.40 - 4.50 mIU/L [employer] Blood Blood / Unknown 09/13/2023 9 :40 AM EDT 09/13/2023 9:41 AM EDT Narrative [employer] [facility] - 09/14/2023 9:43 AM EDT FASTING:YES Fidencio Gray PA-C LAB - BLOOD DRAW Edited Resu lt - Final Performing Organization Address [facility] Co de Phone Number [facility] [address] [address], [facility] [address] [address] * (ABNORMAL) LIPID PANEL (09/13/2023 9:40 AM EDT) [facility] CHOLESTEROL, TOTAL 105 <200 mg/dL [facility] HDL CHOLESTEROL 34(L) > OR = 40 mg/dL [facility] TRIGLYCERIDES 99 <150 mg/dL [facility] LDL-CHOLESTEROL 53 99 mg/dL (calc) [facility] Comment: Reference range: <100 Desirable range <100 mg/dL for primary prevention; <70 mg/dL for patients with CHD or diabetic patients with > or = 2 CHD risk factors. LDL-C is now calculated using the Washington-Bee calculation, which is a validated novel method providing better accuracy than the Friedewald equation in the estimation of LDL-C. Washington SS et al. ANAMARIA. 2013;310(19): 4616-0105 (http://education.Gibberin/faq/YDF285) CHOL/HDLC RATIO 3.1 <5.0 (calc) [facility] NON-HDL CHOLESTEROL 71 <130 mg/dL (calc) [facility] Comment: For patients with diabetes plus 1 major ASCVD risk factor, treating to a non-HDL-C goal of <100 mg/dL (LDL-C of <70 mg/dL) is considered a therapeutic option. Blood Blood / Unknown 09/13/2023 9 :40 AM EDT 09/13/2023 9:41 AM EDT Narrative [employer] [facility] - 09/14/2023 9:43 AM EDT FASTING:YES us Fidencio Gray PA-C LAB - BLOOD DRAW Final Resul t Performing Organization Address [facility]/ZIP Co de Phone Number [facility] [address] [address], [employer] [facility] [address] [place] [address] * (ABNORMAL) COMPREHENSIVE METABOLIC PANEL (09/13/2023 9:40 AM EDT) GLUCOSE 125(H) 65 - 99 mg/dL [facility] Comment: Fasting reference interval For someone without known diabetes, a glucose value between 100 and 125 mg/dL is consistent with prediabetes and should be confirmed with a follow-up test. UREA NITROGEN (BUN) 19 7 - 25 mg/dL [facility] CREATININE (blood) 1.19 0.70 - 1.28 mg/dL [facility] EGFR 62 > OR = 60 mL/min/1. 73m2 [facility] BUN/CREATININE RATIO SEE NOTE: [facility] Comment: Not Reported: BUN and Creatinine are within reference range. SODIUM 140 135 - 146 mmol/L [facility] POTASSIUM 4.5 3.5 - 5.3 mmol/L [facility] CHLORIDE 102 98 - 110 mmol/L [facility] CARBON DIOXIDE 31 20 - 32 mmol/L [facility] CALCIUM 9.8 8.6 - 10.3 mg/dL [facility] PROTEIN, TOTAL 7.3 6.1 - 8.1 g/dL [facility] ALBUMIN 4.4 3.6 - 5.1 g/dL [facility] GLOBULIN 2.9 1.9 - 3.7 g/dL (calc) [facility] ALBUMIN/GLOBULI N RATIO 1.5 1.0 - 2.5 (calc) [facility] BILIRUBIN, TOTAL 0.9 0.2 - 1.2 mg/dL [facility] ALKALINE PHOSPHATASE 79 35 - 144 U/L [facility] AST 22 10 - 35 U/L [facility] ALT 19 9 - 46 U/L [facility] Blood Blood / Unknown 09/13/2023 9 :40 AM EDT 09/13/2023 9:41 AM EDT Narrative [employer] [facility] - 09/14/2023 9:43 AM EDT FASTING:YES us Fidencio Gray PA-C LAB - BLOOD DRAW Final Resul t [facility] [address] [address], [facility] [address] [place] [address] * HISTORIC COLONOSCOPY (04/27/2022 3:00 AM EDT) 04/27/2022 3:00 AM EDT Roberto Fiore MD PROCEDURES Final Result from Last 3 Months or Most Recently Relevant to Health Maintenance Insurance [facility] Care Teams Water Technician Relationship Specialty Start Date End Date Fidencio Gray PA-C [address] [place] [address] PCP - General [facility] 08/26/20
[2025-02-11 12:59] LABS: Appearance Urine Clear; Glucose Urine UA Negative (Negative); PH 6.0 (5.0-9.0); Specific Gravity - Urine 1.020 (1.005-1.025)
[2025-02-11 13:48] LABS: Anion Gap 10 (12-20); Blood Urea Nitrogen 23 mg/dL (9-16); Calcium 9.2 mg/dL (8.4-10.2); Carbon Dioxide 30 mmol/L (22-29); Chloride 105 mmol/L (96-108); Estimated Glomerular Filt Rate 57; Potassium 4.7 mmol/L (3.3-5.1); Sodium 140 mmol/L (135-145)
[2025-02-11 14:12] LABS: Total Protein Urine Random < 7 mg/dL (<12)
== END 2025-02-11 09:04 | disposition home or self-care (01) ==
LOC: HO.HKASLDS 09:03
PROVIDERS: Visit Provider Internal Medicine Nephrology
DX: I10 Essential (primary) hypertension (principal); N20.0 Calculus of kidney; N28.1 Cyst of kidney, acquired
CPT/HCPCS: 36415; 80051; 81003; 82310; 82565; 82570; 84156; 84520

== ENCOUNTER 2025-02-18 12:45 | Outpatient (AMB) | payer OTHER, SELFPAY ==
--- NOTE | 2025-02-18 13:37 | HO.NEPHOV_ITS ---
Vital Signs 02/18/25 13:43 Height 5 ft 6 in Weight 192 lb 6 oz BMI 31.0 BP 120/70 Blood Pressure Location Lt brachial Position Sitting Pulse 54 Pulse Source Pulse Oximeter Pulse Oximetry (%) 98 Oxygen Delivery Method Room Air Intake Visit Reasons: 6mon follow-up w/labs-Conf Rn Clinical Coordinator Required: No Accompanied by: Self / Same As Patient Allergies No Known Allergies Allergy (Verified 02/18/25 13:43) HPI Comments Details: Kirby in follow up who has a history of renal stones and renal cysts. He had moved from [place] about 5 years ago. He has not had any symptomatic episode of renal calculus for a long time. He is a diabetic and has hypertension. He does not take nonsteroidal anti-inflammatories on a regular basis and try to maintain good hydration. He does not have any hematuria, edema, hypercalcemia. His serum creatinine been stable. He did not have any new systemic complaints at the time of this office visit. [facility] Medical History (Updated 01/30/24 @ 12:29 by Paul Whyte MD) Transient cerebral ischemia Primary open angle glaucoma Parkinson's disease Meckels diverticulum Hypothyroidism Hypercholesterolemia Fatty liver Hypertension Diverticulitis DM w/o complication type II Renal cyst Age-related nuclear cataract, bilateral Surgical History History of colonoscopy Social History Alcohol intake: never Patient Tobacco Use Status: Never used Tobacco Review of Systems Const All systems reviewed & are unremarkable except as noted in HPI and below Physical Exam Const General: comfortable and no acute distress Orientation/consciousness: patient oriented x3 HEENT Head: Yes normocephalic Mouth: Normal oral and palatal mucosa present Eyes EOM: EOMs intact bilaterally Neck Neck: Yes supple Resp Auscultation: clear to auscultation bilaterally Cardio Jugular venous distension: no JVD Rate: regular rate GI Palpation (GI): Soft to palpation Auscultation: normal bowel sounds General: Yes no CVA tenderness Back/Spine/Pelvis Back: no CVA tenderness Skin General skin exam: no rashes or lesions noted Neuro General: patient oriented x3 and moves all extremities Extrem General: Yes no pedal edema Results Reviewed Nephrology Results: Sodium, (135-145) 140 mmol/L 02/11/25 Potassium, (3.3-5.1) 4.7 mmol/L 02/11/25 Chloride, (96-108) 105 mmol/L 02/11/25 Carbon Dioxide, (22-29) 30 mmol/L H 02/11/25 BUN, (9-16) 23 mg/dL H 02/11/25 Creatinine, (0.5-1.4) 1.23 mg/dL 02/11/25 Calcium, (8.4-10.2) 9.2 mg/dL 02/11/25 Urine Protein, (Neg-Trace) Negative mg/dL 02/11/25 Urine Creatinine 142.59 mg/dL 02/11/25 Protein/Creatinin Ratio TNP 02/11/25 Assessment & Plan Assessment & Plan (1) Hypertension: Code(s): I10 - Essential (primary) hypertension Category: Medical Qualifiers: Hypertension type: primary hypertension Qualified Code(s): I10 - Essential (primary) hypertension (2) Renal cyst: Code(s): N28.1 - Cyst of kidney, acquired Category: Medical (3) Renal calculus: Code(s): N20.0 - Calculus of kidney Category: Medical Plan Kirby has history hypertension, renal cyst and renal calculus. His blood pressure is at goal. He has no family history of renal stones or renal cyst. He has no family history of any cystic renal disease, ESRD or renal transplant. His renal functions is stable with serum creatinine of 1.0. His blood pressure is at goal. He is tolerating SILVIA-inhibitor. He has no proteinuria. He should maintain good hydration and keep with low-sodium diet. He should maintain appropriate blood sugar and blood pressure goals. He should eat more fruits and vegetables and consume less meat. He may need hydrochlorothiazide and or potassium citrate in the future. I ordered F/U imaging of his renal cyst . I did not make any medication changes today. Follow-up appointment given. Answered all questions. Orders: Orders US renal BI 1 Month N20.0 - Calculus of kidney, N28.1 - Cyst of kidney, acquired Blood Urea Nitrogen 6 Months I10 - Essential (primary) hypertension, N20.0 - Calculus of kidney, N28.1 - Cyst of kidney, acquired Creatinine 6 Months I10 - Essential (primary) hypertension, N20.0 - Calculus of kidney, N28.1 - Cyst of kidney, acquired Calcium 6 Months I10 - Essential (primary) hypertension, N20.0 - Calculus of kidney, N28.1 - Cyst of kidney, acquired Electrolytes 6 Months I10 - Essential (primary) hypertension, N20.0 - Calculus of kidney, N28.1 - Cyst of kidney, acquired Coding Level of Care Code Est Pt Level 4 (31682) Diagnoses Primary hypertension I10 Hypertension type: primary hypertension Renal cyst N28.1 Renal calculus N20.0
[2025-02-18 13:43] VITALS: BP 120/70; PULSE 54; O2SAT 98; BMI 31.0
--- OUTSIDE RECORDS SUMMARY | 2025-02-18 13:55 | XMS_ITS | Clinical Summary ---
Author Organization [facility] Address [address] [place], [place] [id number] Phone Care Team Providers Care Meal Cooker Name Role Phone Pcp, Unknown Primary Care Provider Unavailabl e Allergies No known active allergies Medications aspirin 81 MG EC tablet Take 81 mg by mouth daily. 05/07/2022 Active atorvastatin (LIPITOR) 40 MG tablet Take 40 mg by mouth. 05/31/2022 Active famotidine (PEPCID) 40 MG tablet Take 40 mg by mouth nightly at bedtime as needed. Active levothyroxine (SYNTHROID, LEVOTHROID) 100 MCG tablet Take 100 mcg by mouth every morning. Active lisinopril (PRINIVIL,ZESTR IL) 20 MG tablet Take 20 mg by mouth daily. 05/04/2022 Active primidone (MYSOLINE) 50 MG tablet Take 50 mg by mouth nightly at bedtime. 04/17/2022 Active JANUVIA 100 mg tablet Take 100 mg by mouth daily. Active Active Problems Problem Noted Date Diagnosed Date Squamous cell carcinoma, face 08/07/2023 Aspirin long-term use 08/07/2023 Family History Relation Status Comments Father Mother Social History Tobacco Use Types Packs/Day Years Used Date Smoking Tobacco: Never Tobacco Cessation:Counseling Given: Not Answered Alcohol Use Standard Drinks/Week Comments Never 0 (1 standard drink = 0.6 oz pur e alcohol) Education Answer Date Recorded Are you interested in more education? Not on gissel e 07/31/2023 Are you concerned about learning? Not on file 07/31/2023 No 07/31/2023 No 07/31/2023 Digital Access Answer Date Recorded No 07/31/2023 No 07/31/2023 Reliable internet access at home? Not on file 07/31/2023 Device with a working camera? Not on file Sex and Gender Information Value Date Recorded Sex Assigned at Not on file Legal Sex Male 1:44 PM EST Gender Identity Not on file Sexual Orientation Not on file Last Filed Vital Signs Vital Sign Reading Time Taken Comments Blood Pressure 170/80 09/08/2023 2:18 PM EST Pulse 58 09/08/2023 2:18 PM EST Temperature - - Respiratory Rate - - Oxygen Saturation 98% 09/08/2023 2:18 PM EST Inhaled Oxygen Concentration - - Weight 89.4 kg (197 lb 3.2 oz) 08/07/2023 12:53 PM EST Height 167.6 cm (5' 6 ) 08/07/2023 12:53 PM EST Body Mass Index 31.83 08/07/2023 12:53 PM EST Plan of Treatment Health Maintenance Due Date Last Done Comments CREATININE LEVEL 1944 POTASSIUM LEVEL 1944 DEPRESSION SCREENING 1956 SMOKING STATUS SCREENING (Once After 26 Yrs) 1970 RSV VACCINE (1 - 1-dose 75+ series) 2019 COVID-19 VACCINE ( season) 2024 06/07/2021, 09/12/2020, 08/15/2020 TSH LEVEL 09/12/2024 09/13/2023, 04/03, 04/11/2019 LIPID PANEL 09/12/2028 09/13/2023, 08/31, 10/31/2022, Additional history exists Adult Td,Tdap Booster 06/21/2029 06/21/2019 PNEUMOCOCCAL VACCINES (50+ years) Completed 04/27/2021, 06/21/2019 ZOSTER VACCINES Completed 10/18/2022, 07/20/2022 HEPATITIS A VACCINES Aged Out No long er eligible based on patient's age to complete this topic HIB VACCINES Aged Out No longer eligi ble based on patient's age to complete this topic MENINGOCOCCAL VACCINES (ACWY) Aged Out No longer eligible based on patient's age to complete this topic MENINGOCOCCAL VACCINES (B) Aged Out N o longer eligible based on patient's age to complete this topic Medical Devices Not on file Insurance [facility] RE[facility]ACEMENT [facility] RE[facility] Care Teams Meal Cooker Relationship Specialty Start Date End Date Pcp, Unknown PCP - General 07/31/23 Additional Source Comments The information contained in this document represents components of the legal health record. It is not the complete legal health record.[facility]
--- OUTSIDE RECORDS SUMMARY | 2025-02-18 13:55 | XMS_ITS | Clinical Summary ---
Author Organization [facility] Address [address] [facility] [address] [place] [address] Phone Care Team Providers Care Recording Engineer Name Role Phone Fidencio Gray PA-C Primary [...] 04/27/2021, 06/21/2019 Insurance Care Dual SNP ([id number]) [facility] Care Dual SNP ([id number]) Care Teams Recording Engineer Relationship Specialty Start Date End Date Fidencio Gray PA-C [address] [place] [address] PCP - General Physician Nuclear Engineering Technician 04/20/22
--- OUTSIDE RECORDS SUMMARY | 2025-02-18 13:55 | XMS_ITS | Clinical Summary ---
Author Organization [facility] Address [address] [place] [address] Care Team Providers Care Client Engagement Specialist Name Role Phone Fidencio Gray PA-C Primary [...] complication, without long-term current use of insulin ([facility]) Use to test blood sugar once daily 100 Each 3 024 Active lancets (FREESTYLE LANCETS) 28 gaugeIndications:Contr olled type 2 diabetes mellitus without complication, without long-term current use of insulin ([facility]) Use to check blood sugar once daily 100 Each 3 024 Active blood-glucose meter monitoring kitIndications:Control led type 2 diabetes mellitus without complication, without long-term current use of insulin ([facility]) as needed for blood glucose monitoring Freestyle 1 Each 024 Active MISCELLANEOUS MEDICAL SUPPLY MISCIndications:Essent ial hypertension by miscellaneous route once daily as needed (blood pressure monitoring) Supply: 1 adult regular blood pressure monitor JUANITO: 99 Dx: htn 1 Each 024 Active clotrimazole (LOTRIMIN) 1 % creamIndications: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 90 [...] complication, without long-term current use of insulin ([facility]) 01/13/2022 Obesity, Class I, BMI 30-34.9 01/13/2022 Pre-operative clearance 01/08/2021 Primary open angle glaucoma (POAG) of both eyes, moderate stage 04/30/2019 Age-related nuclear cataract of both eyes 2018 TIA (transient ischemic attack) 04/30/2019 Overview (04/30/2019): Pt had TIA 2016 Essential hypertension 01/10/2019 Hypercholesterolemia 01/10/2019 Parkinson's disease ([facility]) 01/10/2019 Hypothyroidism 01/10/2019 History of colonoscopy 01/10/2019 Overview (01/10/2019): Done in [place] per pt 2017 Encounters Date Type Department Care Team Description 12/16/2024 2:00 PM EDT Office Visit [address] [address] Fidencio Gray PA-C from Last 3 Months Immunizations Immunization Administration Dates Next Due Flu, High Dose, 65y+, Fluzon e High Dose 06/08/2023,04/27/2021,03/10/2020,0902/2020 Flu, Preservative Free 04/19/2022 Hep B, Adult/Adol ([id number]/RECOMBIVAX-ADULT) 07/23/2019,06/21/2019 12/23/2019 Hep B,adult,adjuvanted (HEPLISAV) 05/22/2023 Influenza [...] 05/15/2024, 1 08/09/2022, 04/19/2022, Additional history exists [id number] ( season) 2025 02/16/2022, 06/07/2021, 09/12/2020, Additional [...] complication, without long-term current use of insulin ([facility]) HEMOGLOBIN GLYCOSYLATED A1C Routine 08/29/2024 9:10 AM EST Hypercholesterolemia Controlled type 2 diabetes mellitus without complication, without long-term current use of insulin ([facility]) THYROID CASCADING REFLEX PANEL Routine 09/13/2023 9:40 AM EDT Annual physical exam Hypothyroidism, unspecified type COMPREHENSIVE METABOLIC PANEL Routine 09/13/2023 9:40 AM EDT Annual physical exam Controlled type 2 diabetes mellitus without complication, without long-term current use of insulin ([facility]) Hypercholesterolemia Essential hypertension LIPID PANEL Routine 09/13/2023 9:40 AM EDT Annual physical exam Controlled type 2 diabetes mellitus without complication, without long-term current use of insulin ([facility]) Hypercholesterolemia Essential hypertension HISTORIC COLONOSCOPY 04/27/2022 3:00 AM EDT from Last 3 Months or Most Recently Relevant to Health Maintenance Results * CARD SCANNED DOCUMENT (12/25/2024 3:00 AM EDT) 12/25/2024 3:00 AM EDT us Fidencio Gray PA-C SCAN ECGS Final Result * MICROALBUMIN/CREATININE RATIO, URINE, RANDOM (08/29/2024 9:10 AM EST) CREATININE, RANDOM URINE 110 20 - 320 mg/dL [facility] MICROALBUMIN 0.7 mg/dL [facility] [employer] [facility] Comment: Reference Range Not established MICROALBUMIN/CREA TININE RATIO, RANDOM URINE 6 <30 mg/g creat [facility] Comment: The ADA defines abnormalities in [...] AM EST 08/29/2024 9:11 AM EST Narrative [facility] - 09/02/2024 6:32 AM EST DIFFICULT DRAW FASTING:YES DIFFICULT DRAW. PATIENT ADVISED TO RETURN FOR CO us Fidencio Gray PA-C LAB URINE AMBULATORY Final R esult Performing Organization Address [facility] Co de Phone Number [facility] [address] [address], [facility] [address] [address] * (ABNORMAL) HEMOGLOBIN GLYCOSYLATED A1C (08/29/2024 9:10 AM EST) HEMOGLOBIN A1C 6.8(H) <5.7 % of total Hgb [facility] Comment: For someone without known diabetes, a [...] AM EST 08/29/2024 9:11 AM EST Narrative [employer] - 09/02/2024 6:32 AM EST DIFFICULT DRAW FASTING:YES DIFFICULT DRAW. PATIENT ADVISED TO RETURN FOR CO us Fidencio Gray PA-C LAB - BLOOD DRAW Final Resul t Performing Organization Address [facility] Co de Phone Number [facility] [address] [address], [facility] [address] [address] * THYROID CASCADING REFLEX PANEL (09/13/2023 9:40 AM EDT) TSH 1.94 0.40 - 4.50 mIU/L [facility] Blood Blood / Unknown 09/13/2023 9 :40 AM EDT 09/13/2023 9:41 AM EDT Narrative [facility] - 09/14/2023 9:43 AM EDT FASTING:YES us Fidencio Gray PA-C LAB - BLOOD DRAW Edited Resu lt - Final Performing Organization Address City/[facility]/ZIP Co de Phone Number [facility] [address] [address], [facility] [address] [address] * (ABNORMAL) LIPID PANEL (09/13/2023 9:40 AM EDT) [facility] Signature CHOLESTEROL, TOTAL 105 <200 mg/dL [facility] HDL CHOLESTEROL 34(L) > OR = 40 mg/dL [facility] TRIGLYCERIDES 99 <150 mg/dL [facility] LDL-CHOLESTEROL 53 99 mg/dL (calc) [facility] Comment: Reference range: <100 Desirable range <100 mg/dL for primary prevention; <70 mg/dL for patients with CHD or diabetic patients with > or = 2 CHD risk factors. LDL-C is now calculated using the Elton calculation, which is a validated novel method providing better accuracy than the Friedewald equation in the estimation of LDL-C. [place] SS et al. ANAMARIA. 2013;310(19): 9111-4240 (http://education.[employer]/faq/AKK236) CHOL/HDLC RATIO 3.1 <5.0 (calc) [facility] NON-HDL CHOLESTEROL 71 <130 mg/dL (calc) [facility] Comment: For patients with diabetes plus 1 major ASCVD risk factor, treating to a non-HDL-C goal of <100 mg/dL (LDL-C of <70 mg/dL) is considered a therapeutic option. Blood Blood / Unknown 09/13/2023 9 :40 AM EDT 09/13/2023 9:41 AM EDT [employer] [facility] - 09/14/2023 9:43 AM EDT FASTING:YES us Fidencio Gray PA-C LAB - BLOOD DRAW Final Resul t Performing Organization Address City/[facility]/ZIP Co de Phone Number [facility] [address] [address], [facility] [address] [address] * (ABNORMAL) COMPREHENSIVE METABOLIC PANEL (09/13/2023 9:40 AM EDT) [facility] GLUCOSE 125(H) 65 - 99 mg/dL [facility] Comment: Fasting reference interval For someone without known diabetes, a glucose value between 100 and 125 mg/dL is consistent with prediabetes and should be confirmed with a follow-up test. UREA NITROGEN (BUN) 19 7 - 25 mg/dL [facility] CREATININE (blood) 1.19 0.70 - 1.28 mg/dL [facility] EGFR 62 > OR = 60 mL/min/1. 73m2 [facility] BUN/CREATININE RATIO SEE NOTE: [facility] Comment: Not Reported: BUN and Creatinine are within reference range. SODIUM 140 135 - 146 mmol/L [facility] POTASSIUM 4.5 3.5 - 5.3 mmol/L [facility] CHLORIDE 102 98 - 110 mmol/L [facility] CARBON DIOXIDE 31 20 - 32 mmol/L [facility] CALCIUM 9.8 8.6 - 10.3 mg/dL [facility] PROTEIN, TOTAL 7.3 6.1 - 8.1 g/dL [facility] ALBUMIN 4.4 3.6 - 5.1 g/dL [facility] GLOBULIN 2.9 1.9 - 3.7 g/dL (calc) [facility] ALBUMIN/GLOBULI N RATIO 1.5 1.0 - 2.5 (calc) [facility] BILIRUBIN, TOTAL 0.9 0.2 - 1.2 mg/dL [facility] ALKALINE PHOSPHATASE 79 35 - 144 U/L [facility] AST 22 10 - 35 U/L [facility] ALT 19 9 - 46 U/L [facility] Blood Blood / Unknown 09/13/2023 9 :40 AM EDT 09/13/2023 9:41 AM EDT [employer] [facility] - 09/14/2023 9:43 AM EDT FASTING:YES us Fidencio Gray PA-C LAB - BLOOD DRAW Final Resul t [facility] [address] [address], [facility] [address] [place] [address] * HISTORIC COLONOSCOPY (04/27/2022 3:00 AM EDT) 04/27/2022 3:00 AM EDT Roberto Fiore MD PROCEDURES Final Result from Last 3 Months or Most Recently Relevant to Health Maintenance Insurance [facility] Care Teams Client Engagement Specialist Relationship Specialty Start Date End Date Fidencio Gray PA-C [address] [place] [address] PCP - General FAMILY MEDICINE PA 08/26/20
--- OUTSIDE RECORDS SUMMARY | 2025-02-18 13:55 | XMS_ITS | Clinical Summary ---
Author Organization [facility] Address [address] [place] [address] Phone Care Team Providers Care Childcare Provider Name Role Phone Fidencio Gray Primary Care Provider [phone] Allergies No known active allergies Medications albuterol [...] LAB CHEMISTRY METHOD 10/08/2024 10:17 AM EDT [facility] Triglycerides 90 0 - 150 mg/dL LAB CHEMISTRY METHOD 10/08/2024 10:17 AM [facility] HDL 33(L) >=40 mg/dL LAB CHEMISTRY METHOD 10/08/2024 10:17 AM [facility] LDL Calculated 67 0 - 100 mg/dL LAB CHEMISTRY METHOD 10/08/2024 10:17 AM [facility] VLDL Cholesterol Adam 18 mg/dL LAB CHEMISTRY METHOD 10/08/2024 10:17 AM [facility] Non HDL Chol. (LDL+VLDL) 85 <145 mg/dL LAB CHEMISTRY METHOD 10/08/2024 10:17 AM [facility] Chol/HDL Ratio 3.6 0.0 - 4.4 LAB CHEMISTRY METHOD 10/08/2024 10:17 AM [facility] Blood Venous blood specimen / Unknown Venipuncture / Unknown 10/08/2024 9:00 AM EDT 10/08/2024 9:18 AM EDT us Christiano BENITEZ LAB BLOOD ORDERABLES Final Resu lt [facility] [address] [place] [address], [place] [phone] * (ABNORMAL) Comprehensive metabolic panel (10/08/2024 9:00 AM EDT) Sodium 140 133 - 145 mmol/L LAB CHEMISTRY METHOD 10/08/2024 10:18 AM [facility] Potassium 4.7 3.5 - 5.5 mmol/L LAB CHEMISTRY METHOD 10/08/2024 10:18 AM [facility] Chloride 106 96 - 110 mmol/L LAB CHEMISTRY METHOD 10/08/2024 10:18 AM [facility] CO2 32 21 - 32 mmol/L LAB CHEMISTRY METHOD 10/08/2024 10:18 AM [facility] Anion Gap 2(L) 3 - 11 LAB CHEMISTRY METHOD 10/08/2024 10:18 AM [facility] Glucose 121(H) 70 - 100 mg/dL LAB CHEMISTRY METHOD 10/08/2024 10:18 AM [facility] BUN 25 5 - 25 mg/dL LAB CHEMISTRY METHOD 10/08/2024 10:18 AM [facility] Creatinine 1.26 0.70 - 1.30 mg/dL LAB CHEMISTRY METHOD 10/08/2024 10:18 AM [facility] eGFR 58(L) >=60 mL/min/1. 73m2 LAB CHEMISTRY METHOD 10/08/2024 10:18 AM [facility] Comment:Calculation based on the Chronic Kidney Disease Epidemiology Collaboration (CKD-EPI) equation refit without adjustment for race. BUN/Creatinine Ratio 19.8 LAB CHEMISTRY METHOD 10/08/2024 10:18 AM [facility] Calcium 9.5 8.5 - 10.5 mg/dL LAB CHEMISTRY METHOD 10/08/2024 10:18 AM [facility] AST (SGOT) 31 10 - 42 unit/L LAB CHEMISTRY METHOD 10/08/2024 10:18 AM [facility] ALT (SGPT) 40 10 - 60 unit/L LAB CHEMISTRY METHOD 10/08/2024 10:18 AM [facility] Alkaline Phosphatase 111 42 - 121 unit/L LAB CHEMISTRY METHOD 10/08/2024 10:18 AM [facility] Total Protein 7.4 6.0 - 8.0 g/dL LAB CHEMISTRY METHOD 10/08/2024 10:18 AM [facility] Albumin 3.8 3.2 - 5.0 g/dL LAB CHEMISTRY METHOD 10/08/2024 10:18 AM [facility] Total Bilirubin 0.8 0.0 - 1.4 mg/dL LAB CHEMISTRY METHOD 10/08/2024 10:18 AM [facility] Blood Venous blood specimen / Unknown Venipuncture / Unknown 10/08/2024 9:00 AM EDT 10/08/2024 9:18 AM EDT us Christinao BENITEZ LAB BLOOD ORDERABLES Final Resu lt [facility] [address] [place] [address], [place] [phone] from Last 3 Months or Most Recently Relevant to Health Maintenance Insurance [employer] MEDICARE Member Subscriber Plan / Payer (Ef fective 2018-Present) Name:Kirby Fierro Relation to Subscriber:Self Name:Kirby Fierro Payer ID:[id number] Group ID:[id number] Type:Not on file Address: [place] [address] [address] Care Teams Childcare Provider Relationship Specialty Start Date End Date Fidencio Gray PA [address] [place] [address] PCP - General 09/11/24
== END 2025-02-18 14:04 | disposition home or self-care (01) ==
LOC: HO.HKAS 12:46
PROVIDERS: PCP Physician Assistant Medical; Visit Provider Internal Medicine Nephrology
DX: I10 Essential (primary) hypertension (principal); N28.1 Cyst of kidney, acquired; N20.0 Calculus of kidney
CPT/HCPCS: 99214

== ENCOUNTER → 2025-02-18 12:45 | Outpatient (BNVA) | payer OTHER, SELFPAY | PROVIDERS: PCP Physician Assistant Medical; Visit Provider Internal Medicine Nephrology | DX: N20.0 Calculus of kidney (principal); N28.1 Cyst of kidney, acquired; I10 Essential (primary) hypertension | CPT/HCPCS: 99212 ==

== ENCOUNTER 2025-04-01 07:41 | Outpatient (REF) | payer OTHER, SELFPAY ==
--- NOTE | ~2025-04-01 | US_ITS ---
EXAMINATION: US KIDNEY BILATERAL HISTORY: N20.0 - Calculus of kidney TECHNIQUE: Real-time grayscale ultrasound imaging of the kidneys was performed and images were reviewed. COMPARISON: There are no prior studies available for comparison. FINDINGS: Right kidney: The right kidney measures 11.2 x 3.5 x 5.3 cm. Renal parenchymal echotexture and thickness are normal. Multiple cysts are noted including a 7 x 7 x 6 mm upper pole cyst, 4 x 3 x 6 mm cyst in the interpolar region, and a 2.5 x 1.5 x 2.2 cm cyst at the lower pole. There are nonobstructing calculi at the upper and lower poles measuring up to 3 mm in size. There is no hydronephrosis. Left Kidney: The left kidney measures 12.8 x 5.2 x 5.7 cm. Renal parenchymal echotexture and thickness are normal. There is a 6.6 x 4.4 x 5.4 cm septated cyst in the interpolar region with a possible internal nodular component. There is a 4 mm nonobstructing calculus at the lower pole. There is no hydronephrosis. US/US renal BI IMPRESSION: 1. Bilateral nephrolithiasis as described. 2. 6.6 x 4.4 x 5.4 cm septated cyst in the interpolar region of the left kidney with a possible internal nodular component. Renal protocol CT is recommended. Electronically signed by: Michael Jacob MD 04/01/2025 08:37 AM EDT
--- OUTSIDE RECORDS SUMMARY | 2025-04-01 07:53 | XMS_ITS | Data Portability ---
Author Organization [facility], [facility] Address [address] [place] [address] Assessment No assessment recorded. Plan of Treatment Reminders Order Date Submit Date Provider Last Modified By Organization Details Last Modified Time Details Appointments RECHECK 15 2024 09:30A M Otis Aleman PA-C Not available Not available Not available Lab None recorded . Referral None recorded . Procedures None recorded . Surgeries None recorded . Imaging XR, knee, 4 or more view - UC2 4V right knee pain [email or web address] [facility], [address] [facility], [address], [address], 02/24/2025 10:52:04 Medication Orders None recorded . Patient TargetsNo targets recorded. Patient InstructionsNo instructions recorded. Reason for Referral None Reported. Results Created Date Observation Date Name Description Value Unit Range Abnormal Flag Note LastModifiedBy Organization Detail LastModifiedTime 02/25/2002/24/2025 XR, knee, 4 or more view [email or web address] ?Encry pted=s hAaTro YD8dLq bEUv6g %2BXZw aYqtaq 0bqfl% 2Fg9IQ a4ajBk vP9nXo QUaueC m3YtLR FvZlgJ JJ8mAn HZtai3 0h4555 AC0Klb 3mCV6u iKiQtr MwF INTERFACE [facility] [address], [place], [address], 02/24/2025 08:44:33 02/25/20 25 02/24/2025 XR, knee, 4 or more view [email or web address] ?Encry pted=s hAaTro YD8dLq bEUv6g %2BXZw aYqtaq 0bqfl% 2Fg9IQ a4ajBk vP9nXo QUaueC m3YtLR FvZlgJ JJ8mAn HZtai3 0e6533 AC0Klb 3mCV6u iKiQtr MwF INTERFACE [facility] [address] [facility] [address], [place], [address], 02/24/2025 08:44:35 Result Notes Documentation Provider Name and Address Organization Details Recorded Time Xr, Knee, 4 Or More View : [email or web address] Encrypted=ogCmJmuSK7tLskH Uv6g%2EMEkgRbeof8pnkh%2Fg 2GDm3ooAuxZ4sSkLJjjpZg6Gr YEBlZomWCP9bSpJMefg93e163 7OM2Aki6jLP7mtRjVypUzN Not Available [facility] 02/24/2025 08:44: 34 Xr, Knee, 4 Or More View : [email or web address] Encrypted=hnSbKoaSB3eTjfK Uv6g%4QSVaaZypbp6aijo%2Fg 3BGl7ovWysY0fHdSGcpoGn9Em LPZdBkfUUK5sLbDNeia35i860 8UL9Saq1kME6ovQcFzpTqC Not Available [facility] 02/24/2025 08:44: 36 Procedures Surgical History Date Name Laterality Status Provider Name and Address Organization Details Recorded Time 02/24/2025 Sports Knee 4&1 completed Altagracia Jean PA-C [address] [facility] [address], [place], [address], [facility] - [facility] 02/24/2025 09:05:36 Imaging Results None recorded. Procedure Notes None recorded. Medical Equipment None Reported. Medications Name Sig Start Date Stop Date Status Note LastModified by Organization Details LastModified Time latanoprost 0.005 % eye drops PONGA MARTIN GOTA EN LOS DOS OJOS AL ACOSTARSE active Not Available Not Available No t Available atorvastatin 40 mg tablet TOME 1 TABLETA POR VIA ORAL TODOS LOS MEJÍA AL ACOSTARSE active Not Available Not Available No t Available primidone 50 mg tablet TOME 1 TABLETA POR VIA ORAL TODOS LOS MEJÍA AL ACOSTARSE active Not Available Not Available No t Available albuterol sulfate 2.5 mg/3 mL (0.083 %) solution for nebulization INHALE 3 ML BY NEBULIZATIO N EVERY 6 HOURS IF NEEDED FOR WHEEZING active Not Available Not Available No t Available cetirizine 10 mg tablet TOME 1 TABLETA POR VIA ORAL TODOS LOS MEJÍA active Not Available Not Available No t Available azithromycin 250 mg tablet TOME 2 TABLETAS V A ORAL HOY, L[place] TOME 1 TABLETA DIARIAMENTE MATHEW 4 D SEG N LAS INDICACIONE S active Not Available Not Available No t Available ketotifen 0.025 % (0.035 %) eye drops APPLY 1 DROP TO EYE 2 (TWO) TIMES DAILY FOR 90 DAYS active Not Available Not Available Not Available sucralfate 1 gram tablet TOME 1 TABLETA POR V A ORAL CUATRO VECES AL D A active Not Available Not Available No t Available lisinopril 20 mg tablet TOME MARTIN TABLETA POR V A ORAL TODOS LOS D active Not Available Not Available No t Available famotidine 40 mg tablet TOME 1 TABLETA POR V A ORAL DOS VECES AL D A active Not Available Not Available No t Available aspirin 81 mg tablet,delay ed release TOME 1 TABLETA POR VIA ORAL TODOS LOS MEJÍA active Not Available Not Available No t Available guaifenesin 200 mg tablet TOME 1 TABLETA POR V A ORAL CADA 4 HORAS CUANDO SEA NECESARIO PARA LA CONGESTI N active Not Available Not Available N ot Available levothyroxin e 100 mcg tablet TOME 1 TABLETA POR V A ORAL TODOS LOS D active Not Available Not Available No t Available prednisone 50 mg tablet TAKE 1 TABLET BY MOUTH 1 TIME EACH DAY FOR 5 DAYS. active Not Available Not Available No t Available zolpidem 5 mg tablet TAKE 1 TABLET BY MOUTH NIGHTLY AT BEDTIME NEEDED FOR SLEEP active Not Available Not Available No t Available timolol maleate 0.5 % eye drops PONGA MARTIN GOTA EN LOS DOS OJOS DOS VECES AL D A active Not Available Not Available No t Available amoxicillin 875 mg-potassium clavulanate 125 mg tablet TOME 1 TABLETA POR V A ORAL DOS VECES AL D A active Not Available Not Available No t Available Ventolin HFA 90 mcg/actuatio n aerosol inhaler INHALE UN SOPLIDO POR V A ORAL CADA SEIS HORAS active Not Available Not Available No t Available Januvia 100 mg tablet TOME 1 TABLETA POR V A ORAL TODOS LOS D active Not Available Not Available No t Available FreeStyle Lite Strips USE TO TEST BLOOD SUGAR ONCE DAILY active Not Available Not Available N ot Available magnesium oxide 500 mg capsule SUDHIR 500 MG POR V A ORAL DOS VECES AL D A active Not Available Not Available No t Available levocetirizi ne 5 mg tablet TOME MARTIN TABLETA POR V A ORAL CADA NOCHE active Not Available Not Available N ot Available Gavilax 17 gram/dose oral powder TAKE 17 GM BY MOUTH 2 TIMES A DAY DISSOLVE IN WATER BEFORE TAKING active Not Available Not Available No t Available Combivent Respimat 20 mcg-100 mcg/actuatio n solution for inhalation INHALE 1 PUFF INTO THE LUNGS 4 TIMES DAILY. active Not Available Not Available No t Available Linzess 72 mcg capsule TAKE 1 CAPSULE BY MOUTH DAILY,X30 DAYS,INSTR: DO NOT CRUSH OR CHEW active Not Available Not Available No t Available Readi-Cat 2 2 % (w/v) oral suspension PLEASE FOLLOW RADIOLOGY INSTRUCTION S. active Not Available Not Available No t Available Vitals None Recorded Social History None recorded. Functional Status None recorded. Mental Status None recorded. Family History Nothing Reported. Medical History No medical history recorded. Past Encounters Encounter ID Performer Location Encounter Start Date Encounter Closed Date Diagnosis/Indication Diagnosis SNOMED-CT Code Diagnosis ICD10 Code Diagnosis IMO Codes Diagnosis Note [id number] Altagracia Jean PA-C [facility] [place] [address] [place] [address] 02/24/2025 08:09:40 03/04/2025 13:21:59 Pain of right knee joint 4765350849 65803 M25.561 [id number] Osteoarthr itis of right knee joint 0383354906 28932 M17.11 [id number] Health Concerns Section Related Observation LastModified by Organization Detai ls LastModified Time None Recorded Concern Status LastModified by Organization Details LastModified Time None Recorded Advance Directives Directive None Recorded Payers Insurance Date Sequence Insurance Name Policy Number Policy Augustine Covered Member ID Augustine Member ID Guarantor Name 03/04/2025 1 [facility] - DOS ON OR AFTER 2022 - ONE CARE (MEDICARE REPLACEMENT/AD VANTAGE - HMO) Kirby Robb [id number] Kirby Robb Notes Date Note Type Note Provider Name and Address Organization Details Recorded Time 02/24/2025 text/html I am seeing the patient today under the supervision of Dr. SHEIKH who was available but who did not see the patient. HPI: Patient presents today [facility] regarding their right knee. They have had difficulty up and down stairs sitting standing. Problems ambulating. Flur-oon-ctnltpm medications are helping somewhat but not significantly. Pain is constant aching sometimes sharp pain with giving out sensations. PATIENT STATES HE GOT THREE INJECTIONS A FEW YEARS AGO AND NOW THE PAIN IS BACK Past family, medical, social history and review of systems has been reviewed, updated and is located in the patient s chart. Examination: The patient is well appearing and in no apparent distress. Alert and oriented x3. Gait is symmetric. Examination of the right knee reveals no evidence of any edema, erythema, or warmth. No Deformity. Range of motion of the knee limited with mild discomfort at the end ranges. Mild effusion. Does have some tenderness to palpation about the joint line. Negative Jayne s . Calf is supple and nontender. Neurovascularly intact distally. 4 X-ray views of the knee were independently reviewed today showed narrowing of the medial compartment of the knee. Subchondral sclerosis and osteophyte formation present. No evidence of any other bony lesions or pathology. Impression: right Knee osteoarthritis Plan: We discussed the role of conservative management including medications, physical therapy, injection and bracing. At this point the patient wishes to proceed with injection today. See procedure documentation. They will follow up with us as scheduled. All questions answered Altagracia Jean PA-C [address] [facility] [address] [facility], [place], [address], [place] - [facility] 02/24/2025 09:05:55
--- OUTSIDE RECORDS SUMMARY | 2025-04-01 07:53 | XMS_ITS | Clinical Summary ---
Author Organization [facility] Address [address] [place] [address] Phone Care Team Providers Care Superintendent Transmission Name Role Phone Fidencio Gray Primary Care Provider [phone] Allergies No known active allergies Medications albuterol [...] 06/12/2022 Social Influencers of Health Screening 06/12/2022 Depression Screening 07/03/2024 Diabetes: Blood Sugar Control Test (HGBA1C) 02/26/2025 08/29/2024 COVID-19 Vaccine ( season) 2025 02/16/2022, 06/07/2021, 09/12/2020, Additional history exists Influenza Vaccine (#1) 2025 , 06/08/2023, 04/19/2022, [...] LAB CHEMISTRY METHOD 10/08/2024 10:17 AM EDT [facility] Triglycerides 90 0 - 150 mg/dL LAB CHEMISTRY METHOD 10/08/2024 10:17 AM [facility] HDL 33(L) >=40 mg/dL LAB CHEMISTRY METHOD 10/08/2024 10:17 AM [facility] LDL Calculated 67 0 - 100 mg/dL LAB CHEMISTRY METHOD 10/08/2024 10:17 AM [facility] VLDL Cholesterol Adam 18 mg/dL LAB CHEMISTRY METHOD 10/08/2024 10:17 AM [facility] Non HDL Chol. (LDL+VLDL) 85 <145 mg/dL LAB CHEMISTRY METHOD 10/08/2024 10:17 AM [facility] Chol/HDL Ratio 3.6 0.0 - 4.4 LAB CHEMISTRY METHOD 10/08/2024 10:17 AM [facility] Blood Venous blood specimen / Unknown Venipuncture / Unknown 10/08/2024 9:00 AM EDT 10/08/2024 9:18 AM EDT us [facility] BENITEZ LAB BLOOD ORDERABLES Final Resu lt [facility] [address] [place] [address], [place] [phone] * (ABNORMAL) Comprehensive metabolic panel (10/08/2024 9:00 AM EDT) Sodium 140 133 - 145 mmol/L LAB CHEMISTRY METHOD 10/08/2024 10:18 AM [facility] Potassium 4.7 3.5 - 5.5 mmol/L LAB CHEMISTRY METHOD 10/08/2024 10:18 AM [facility] Chloride 106 96 - 110 mmol/L LAB CHEMISTRY METHOD 10/08/2024 10:18 AM [facility] CO2 32 21 - 32 mmol/L LAB CHEMISTRY METHOD 10/08/2024 10:18 AM [facility] Anion Gap 2(L) 3 - 11 LAB CHEMISTRY METHOD 10/08/2024 10:18 AM [facility] Glucose 121(H) 70 - 100 mg/dL LAB CHEMISTRY METHOD 10/08/2024 10:18 AM [facility] BUN 25 5 - 25 mg/dL LAB CHEMISTRY METHOD 10/08/2024 10:18 AM [facility] Creatinine 1.26 0.70 - 1.30 mg/dL LAB CHEMISTRY METHOD 10/08/2024 10:18 AM [facility] eGFR 58(L) >=60 mL/min/1. 73m2 LAB CHEMISTRY METHOD 10/08/2024 10:18 AM [facility] Comment:Calculation based on the Chronic Kidney Disease Epidemiology Collaboration (CKD-EPI) equation refit without adjustment for race. BUN/Creatinine Ratio 19.8 LAB CHEMISTRY METHOD 10/08/2024 10:18 AM [facility] Calcium 9.5 8.5 - 10.5 mg/dL LAB CHEMISTRY METHOD 10/08/2024 10:18 AM [facility] AST (SGOT) 31 10 - 42 unit/L LAB CHEMISTRY METHOD 10/08/2024 10:18 AM [facility] ALT (SGPT) 40 10 - 60 unit/L LAB CHEMISTRY METHOD 10/08/2024 10:18 AM [facility] Alkaline Phosphatase 111 42 - 121 unit/L LAB CHEMISTRY METHOD 10/08/2024 10:18 AM [facility] Total Protein 7.4 6.0 - 8.0 g/dL LAB CHEMISTRY METHOD 10/08/2024 10:18 AM [facility] Albumin 3.8 3.2 - 5.0 g/dL LAB CHEMISTRY METHOD 10/08/2024 10:18 AM [facility] Total Bilirubin 0.8 0.0 - 1.4 mg/dL LAB CHEMISTRY METHOD 10/08/2024 10:18 AM [facility] Blood Venous blood specimen / Unknown Venipuncture / Unknown 10/08/2024 9:00 AM EDT 10/08/2024 9:18 AM EDT us Christian[facility] BENITEZ LAB BLOOD ORDERABLES Final Resu lt [facility] [address] [place] [address], [place] [phone] from Last 3 Months or Most Recently Relevant to Health Maintenance Insurance [employer] MEDICARE Member Subscriber Plan / Payer (Ef fective 2018-Present) Name:Kirby Fierro Relation to Subscriber:Self Name:Kirby Fierro Payer ID:[id number] Group ID:[id number] Type:Not on file Address: [place] [address] [phone] Care Teams Superintendent Transmission Relationship Specialty Start Date End Date Fidencio Gray PA [address] [place] [address] PCP - General 09/11/24
--- OUTSIDE RECORDS SUMMARY | 2025-04-01 07:53 | XMS_ITS | Clinical Summary ---
Author Organization [facility] Address [address] [place], [place] [id number] Phone Care Team Providers Care Sales Service Professional Name Role Phone Pcp, Unknown Primary Care [...] VACCINE (1 - 1-dose 75+ series) 2019 TSH LEVEL 09/12/2024 09/13/2023, 04/03, 04/11/2019 INFLUENZA VACCINE (#1) 2025 , 04/19/2022, 04/27/2021, Additional history exists COVID-19 VACCINE ( season) 2025 06/07/2021, 09/12/2020, 08/15/2020 LIPID PANEL 09/12/2028 09/13/2023, 08/31, 10/31/2022, Additional [...] topic Medical Devices Not on file Insurance [facility] MEDICARE REPLACEMENT [address] [id number] [facility] MEDICARE REPLACEMENT [address] [id number] [facility] MEDICARE [address]PLACEMENT [address] [address] MEDICARE REPLACEMENT [facility] MEDICARE REPLACEMENT Care Teams Sales Service Professional Relationship Specialty Start Date End Date Pcp, Unknown PCP - General 1/29/24 Additional Source Comments The information contained in this document represents components of the legal health record. It is not the complete legal health record.[facility]
--- OUTSIDE RECORDS SUMMARY | 2025-04-01 07:53 | XMS_ITS | Clinical Summary ---
Author Organization [facility] Address [address] [facility] [address] [place] [address] Phone Care Team Providers Care Manager Meeting Name Role Phone Fidencio Gray PA-C Primary [...] 04/27/2021, 06/21/2019 Insurance Care Dual SNP ([id number]) [facility] Care Dual SNP ([id number]) Care Teams Manager Meeting Relationship Specialty Start Date End Date Fidencio Gray PA-C [address] [place] [address] PCP - General Physician Translator And Interpreter 04/20/22
--- OUTSIDE RECORDS SUMMARY | 2025-04-01 07:53 | XMS_ITS | Clinical Summary ---
Author Organization [facility] Address [address] [place] [address] Care Team Providers Care Pier Hand Name Role Phone Fidencio Gray PA-C Primary [...] Medications latanoprost (XALATAN) 0.005 % ophthalmic solution 2020 Active timoloL (BETIMOL) 0.5 % ophthalmic solution INSTILL 1 DROP INTO BOTH EYES EVERY MORNING 2022 Active blood sugar diagnostic stripsIndications:Con trolled type 2 diabetes mellitus without complication, without long-term current use of insulin Use to test blood sugar once daily 100 Each 3 2023 Active lancets (FREESTYLE LANCETS) 28 gaugeIndications:Cont rolled type 2 diabetes mellitus without complication, without long-term current use of insulin Use to check blood sugar once daily 100 Each 3 2023 Active blood-glucose meter monitoring kitIndications:Contro lled type 2 diabetes mellitus without complication, without long-term current use of insulin as needed for blood glucose monitoring Freestyle 1 Each 2023 Active MISCELLANEOUS MEDICAL SUPPLY MISCIndications:Essen tial hypertension by miscellaneous route once daily as needed (blood pressure monitoring) Supply: 1 adult regular blood pressure monitor JUANITO: 99 Dx: htn 1 Each 2023 Active clotrimazole (LOTRIMIN) 1 % creamIndications: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 Apply topically 2 (two) times daily 15 g 2 2023 Active SENNA 8.6 mg tablet TOME MARTIN TABLETA TODOS LOS D ASS Authorized by: RICK FERREIRA 2023 Active hydrocortisone 2.5 % cream APPLY TO FACE 2 TIMES DAILY NEEDED FOR FLARES DECREASE TO DAILY/EVERY OTHER IMPROVES Authorized by: GAYLE QUINN 2023 Active emollient combination no.43 (PROMISEB) creaIndications:Xeros is of skin Apply 1 Application topically nightly at bedtime 30 g 2 2024 Active ketotifen (ZADITOR) 0.025 % (0.035 %) ophthalmic solutionIndications:A llergic rhinoconjunctivitis Apply 1 Drop to eye 2 (two) times daily for 90 days 10 mL 1 2024 Active levocetirizine (XYZAL) 5 mg tabletIndications:All ergic rhinoconjunctivitis Take 1 Tablet by mouth every evening for 90 days 90 Tablet 2024 Active primidone (MYSOLINE) 50 mg tabletIndications:Par kinson's disease, unspecified whether dyskinesia present, unspecified whether manifestations fluctuate TOME 1 TABLETA POR VIA ORAL TODOS LOS MEJÍA AL ACOSTARSE 90 Tablet 1 2024 Active atorvastatin (LIPITOR) 40 mg tabletIndications:Hyp ercholesterolemia TOME 1 TABLETA POR VIA ORAL TODOS LOS MEJÍA AL ACOSTARSE 90 Tablet 1 2024 Active lisinopriL 20 mg tabletIndications:Ess ential hypertension TOME 1 TABLETA POR VIA ORAL TODOS LOS MEJÍA 90 Tablet 1 [address] Active aspirin [address] tabletIndications:Ess ential hypertension TOME 1 TABLETA POR VIA ORAL TODOS LOS MEJÍA 90 Tablet 1 2024 Active zolpidem (AMBIEN) 5 mg tabletIndications:Irish zeina insomnia Take 1 Tablet by mouth nightly at bedtime as needed for sleep. 30 Tablet 5 2024 Active SITagliptin phosphate (JANUVIA) 100 mg tabletIndications:Con trolled type 2 diabetes mellitus without complication, without long-term current use of insulin TOME MARTIN TABLETA TODOS LOS MEJÍA. 90 Tablet 1 2024 Active levothyroxine 100 mcg tabletIndications:Hyp othyroidism, unspecified type Take 1 Tablet by mouth once daily. 90 Tablet 1 2024 Active ipratropium-albuteroL (COMBIVENT RESPIMAT) 20-100 mcg/actuation inhalerIndications:Br onchitis Inhale 1 Puff into the lungs 4 (four) times daily. 4 g 3 2024 Active famotidine (PEPCID) 40 mg tabletIndications:Gas troesophageal reflux disease, unspecified whether esophagitis present TOME 1 TABLETA POR VIA ORAL DOS VECES AL LISA 180 Tablet 1 2024 Active MISCELLANEOUS MEDICAL SUPPLY MISCIndications:Parki nson's disease, unspecified whether dyskinesia present, unspecified whether manifestations fluctuate,Mixed incontinence by miscellaneous route once daily Chucks/bed pads Dx: incontinence, parkinson's JUANITO: 99. 100 Each 11 2024 Active famotidine (PEPCID) 40 mg tabletIndications:Gas troesophageal reflux disease, unspecified whether esophagitis present Take 1 Tablet by mouth 2 (two) times daily. 90 Tablet 1 03/13 Discontinued Active Problems Problem Noted Date Diagnosed Date Bloating 12/16/2024 Aspirin long-term use 08/07/2023 Squamous cell carcinoma, face 08/07/2023 History of actinic keratoses 04/19/2023 Renal stone 07/26/2022 10/18/2022 Controlled type 2 diabetes m ellitus without complication, without long-term current use of insulin 01/13/2022 Obesity, Class I, BMI 30-34.9 01/13/2022 Pre-operative clearance 01/08/2021 Primary open angle glaucoma (POAG) of both eyes, moderate stage 04/30/2019 Age-related nuclear cataract of both eyes 2018 TIA (transient ischemic attack) 04/30/2019 Overview (04/30/2019): Pt had TIA 2016 Essential hypertension 01/10/2019 Hypercholesterolemia 01/10/2019 Parkinson's disease 01/10/2019 Hypothyroidism 01/10/2019 History of colonoscopy 01/10/2019 Overview (01/10/2019): Done in [place] per pt 2017 Immunizations Immunization Administration Dates Next Due Flu, High Dose, 65y+, Fluzon e High Dose 06/08/2023,04/27/2021,03/10/2020,02/2020 Flu, Preservative Free 04/19/2022 Hep B, Adult/Adol (EBQXEGO-S-ZLLFL/RECOMBIVAX-ADULT) 07/23/2019,06/21/2019 12/23/2019 Hep B,adult,adjuvanted (HEPLISAV) 05/22/2023 Influenza [...] 12/16/2024 2:24 PM EDT Plan of Treatment Upcoming Encounters Date Type Department Care Team (Late st Contact Info) Description 04/30/2025 2:20 PM EDT Office Visit [facility] [address] [place] [id number] Fidencio Gray PA-C [address] [place] [address] Health Maintenance Due Date Last Done Comments [...] 02/26/2025 08/29/2024, 08/31, 05/22/2023, Additional history exists [id number] ( season) 2025 02/16/2022, 06/07/2021, 09/12/2020, Additional history exists Imm-Influenza (#1) 2025 05/15/2024, 1 08/09/2022, 04/19/2022, Additional history exists Diabetes Foot Exam 04/05/2025 04/05/2024, 0 12/05/2023, 01/27/2023 Urine Albumin Creatinine Rat io Screening 08/29/2025 08/29/2024, 10/31/2022, 04/28/2021 Lipid Screening 10/08/2025 10/08/2024, 08/31, 10/31/2022, Additional history exists Serum Creatinine 10/08/2025 10/08/2024, 06/2025, 09/13/2023, Additional history exists Tobacco Screening 12/16/2025 12/16/2024 Imm-DTaP/Tdap/Td (2 - Td or Tdap) 06/21/2029 019 Colonoscopy 04/27/2032 04/27/2022, 04/03, 03/06/2017 (Managed by Outside Provider) Colorectal Cancer Screening 04/27/2032 Imm-Pneumococcal 50+ Completed 04/27/2021, 06/21/20 19 Imm-Zoster, Recombinant Completed 10/18/2022, 07/20 Imm-Hepatitis B Completed 05/22/2023, 07/04, 06/21/2019 Alcohol and Drug Screen Completed 08/14/19, 01/15/2024, 08/01/2023, Additional history exists Depression Annual Screen Completed 08/14/2024 Procedures Procedure Name Priority Date/Time Associated Diagnosis Comments REFERRAL SCANNED DOCUMENT 02/18/2025 3:00 AM EDT MICROALBUMIN/CREATINI NE RATIO, URINE, RANDOM Routine 08/29/2024 9:10 AM EST Controlled type 2 diabetes mellitus without complication, without long-term current use of insulin ([facility]) HEMOGLOBIN GLYCOSYLATED A1C Routine 08/29/2024 9:10 AM EST Hypercholesterolemia Controlled type 2 diabetes mellitus without complication, without long-term current use of insulin ([facility]) THYROID CASCADING REFLEX PANEL Routine 09/13/2023 9:40 AM EDT Annual physical exam Hypothyroidism, unspecified type COMPREHENSIVE METABOLIC PANEL Routine 09/13/2023 9:40 AM EDT Annual physical exam Controlled type 2 diabetes mellitus without complication, without long-term current use of insulin ([facility]) Hypercholesterolemia Essential hypertension LIPID PANEL Routine 09/13/2023 9:40 AM EDT Annual physical exam Controlled type 2 diabetes mellitus without complication, without long-term current use of insulin ([facility]) Hypercholesterolemia Essential hypertension HISTORIC COLONOSCOPY 04/27/2022 3:00 AM EDT from Last 3 Months or Most Recently Relevant to Health Maintenance Results * REFERRAL SCANNED DOCUMENT (02/18/2025 3:00 AM EDT) 02/18/2025 3:00 AM EDT us Fidencio Gray PA-C SCAN REFERRAL Final Result * MICROALBUMIN/CREATININE RATIO, URINE, RANDOM (08/29/2024 9:10 AM EST) CREATININE, RANDOM URINE 110 20 - 320 mg/dL [facility] MICROALBUMIN 0.7 mg/dL [facility] Comment: Reference Range Not established MICROALBUMIN/CREA TININE RATIO, RANDOM URINE 6 <30 mg/g creat [facility] Comment: The ADA defines abnormalities in [...] AM EST 08/29/2024 9:11 AM EST Narrative [facility] - 09/02/2024 6:32 AM EST DIFFICULT DRAW FASTING:YES DIFFICULT DRAW. PATIENT ADVISED TO RETURN FOR CO us Fidencio Gray PA-C LAB URINE AMBULATORY Final R esult Performing Organization Address [facility] Co de Phone Number [facility] [address] [address], [place] [address] [address] * (ABNORMAL) HEMOGLOBIN GLYCOSYLATED A1C (08/29/2024 9:10 AM EST) Pathologist [facility] HEMOGLOBIN A1C 6.8(H) <5.7 % of total Hgb [email or web address] Comment: For someone without known diabetes, a [...] AM EST 08/29/2024 9:11 AM EST Narrative [facility] - 09/02/2024 6:32 AM EST DIFFICULT DRAW FASTING:YES DIFFICULT DRAW. PATIENT ADVISED TO RETURN FOR CO us Fidencio Gray PA-C LAB - BLOOD DRAW Final Resul t Performing Organization Address [facility] Co de Phone Number [facility] [address] [address], [place] [address] [address] * THYROID CASCADING REFLEX PANEL (09/13/2023 9:40 AM EDT) Pathologist [facility] TSH 1.94 0.40 - 4.50 mIU/L [email or web address] Blood Blood / Unknown 09/13/2023 9 :40 AM EDT 09/13/2023 9:41 AM EDT Narrative [facility] - 09/14/2023 9:43 AM EDT FASTING:YES us Fidecnio Gray PA-C LAB - BLOOD DRAW Edited Resu lt - Final [facility] [address] [address], [facility] [address] [place] [address] * (ABNORMAL) LIPID PANEL (09/13/2023 9:40 AM EDT) [facility] Signature CHOLESTEROL, TOTAL 105 <200 mg/dL [facility] HDL CHOLESTEROL 34(L) > OR = 40 mg/dL [facility] TRIGLYCERIDES 99 <150 mg/dL [facility] LDL-CHOLESTEROL 53 99 mg/dL (calc) [facility] Comment: Reference range: <100 Desirable range <100 mg/dL for primary prevention; <70 mg/dL for patients with CHD or diabetic patients with > or = 2 CHD risk factors. LDL-C is now calculated using the [place]-Bee calculation, which is a validated novel method providing better accuracy than the Friedewald equation in the estimation of LDL-C. [place] LECHUGA et al. ANAMARIA. 2013;310(19): 1131-7110 (http://education.[employer].Splash.FM/faq/WTR462) CHOL/HDLC RATIO 3.1 <5.0 (calc) [facility] NON-HDL CHOLESTEROL 71 <130 mg/dL (calc) 0[facility]com Comment: For patients with diabetes plus 1 major ASCVD risk factor, treating to a non-HDL-C goal of <100 mg/dL (LDL-C of <70 mg/dL) is considered a therapeutic option. Blood Blood / Unknown 09/13/2023 9 :40 AM EDT 09/13/2023 9:41 AM EDT Narrative [facility] - 09/14/2023 9:43 AM EDT FASTING:YES Fidencio Gray PA-C LAB - BLOOD DRAW Final Resul t [facility] [address] [address], [facility] [address] [place] [address] * (ABNORMAL) COMPREHENSIVE METABOLIC PANEL (09/13/2023 9:40 AM EDT) GLUCOSE 125(H) 65 - 99 mg/dL [facility] Comment: Fasting reference interval For someone without known diabetes, a glucose value between 100 and 125 mg/dL is consistent with prediabetes and should be confirmed with a follow-up test. UREA NITROGEN (BUN) 19 7 - 25 mg/dL [facility] CREATININE (blood) 1.19 0.70 - 1.28 mg/dL [facility] EGFR 62 > OR = 60 mL/min/1. 73m2 [facility] BUN/CREATININE RATIO SEE NOTE: [facility] Comment: Not Reported: BUN and Creatinine are within reference range. SODIUM 140 135 - 146 mmol/L [facility] POTASSIUM 4.5 3.5 - 5.3 mmol/L [facility] CHLORIDE 102 98 - 110 mmol/L [facility] CARBON DIOXIDE 31 20 - 32 mmol/L [facility] CALCIUM 9.8 8.6 - 10.3 mg/dL [facility] PROTEIN, TOTAL 7.3 6.1 - 8.1 g/dL [facility] ALBUMIN 4.4 3.6 - 5.1 g/dL [facility] GLOBULIN 2.9 1.9 - 3.7 g/dL (calc) [facility] ALBUMIN/GLOBULI N RATIO 1.5 1.0 - 2.5 (calc) [facility] BILIRUBIN, TOTAL 0.9 0.2 - 1.2 mg/dL [facility] ALKALINE PHOSPHATASE 79 35 - 144 U/L [facility] AST 22 10 - 35 U/L [facility] ALT 19 9 - 46 U/L [facility] Blood Blood / Unknown 09/13/2023 9 :40 AM EDT 09/13/2023 9:41 AM EDT Narrative [facility] - 09/14/2023 9:43 AM EDT FASTING:YES Fidencio Gray PA-C LAB - BLOOD DRAW Final Resul t [facility] [address] [address], [facility] [address] [place] [address] * HISTORIC COLONOSCOPY (04/27/2022 3:00 AM EDT) 04/27/2022 3:00 AM EDT Roberto Fiore MD PROCEDURES Final Result from Last 3 Months or Most Recently Relevant to Health Maintenance Insurance [facility] Care Teams Pier Hand Relationship Specialty Start Date End Date Fidencio Gray PA-C [address] [place] [address] PCP - General FAMILY MEDICINE, EMMANUEL 08/26/20
--- OUTSIDE RECORDS SUMMARY | 2025-04-01 07:53 | XMS_ITS | Encounter Summary ---
Author Organization [facility] Address [address] [place] [phone] Phone Care Team Providers Care Regulator Inspector Name Role Phone Pcp, Unknown Primary Care Provider Unavailabl e Encounter Details Date Type Department Care Team (Late st Contact Info) Description 09/08/2023 Procedure Pass OR Admitting Dept - Virtual Department [address] [place] [id number] Social History Tobacco Use Types Packs/Day Years Used Date Smoking Tobacco: Never Alcohol Use Standard Drinks/Week Comments [...] on file Sexual Orientation Not on file documented as of this encounter Plan of Treatment Not on file documented as of this encounter Visit Diagnoses Not on filedocumented in this encounter Care Teams Regulator Inspector Relationship Specialty Start Date End Date Pcp, Unknown PCP - General 07/31/23 documented as of this encounter Additional Source Comments The information contained in this document represents components of the legal health record. It is not the complete legal health record.[facility]
== END 2025-04-01 07:42 | disposition home or self-care (01) ==
LOC: HO.US 07:41
PROVIDERS: PCP Physician Assistant Medical; Visit Provider Internal Medicine Nephrology
DX: N20.0 Calculus of kidney (principal); N28.1 Cyst of kidney, acquired
CPT/HCPCS: 76775

== ENCOUNTER → 2025-04-01 07:47 | Outpatient (BNV) | payer OTHER, SELFPAY | PROVIDERS: PCP Physician Assistant Medical; Visit Provider Radiology Diagnostic Radiology | DX: N20.0 Calculus of kidney (principal); N28.1 Cyst of kidney, acquired | CPT/HCPCS: 76775 ==

== ENCOUNTER 2025-05-13 13:04 | Outpatient (REF) | payer OTHER, SELFPAY ==
--- NOTE | ~2025-05-13 | CT_ITS ---
EXAMINATION: CT ABDOMEN WITH CONTRAST CLINICAL INFORMATION: N28.1. Cyst of kidney, acquired. COMPARISON: Correlated to renal ultrasound dated April 01, 2025. TECHNIQUE: Contiguous axial thin section helical images of the abdomen were performed following the administration of 85 mL of Omnipaque 350 intravenous contrast. The data set was reformatted in the coronal and sagittal planes and reviewed on an independent workstation. No reported immediate complications. This CT examination was performed using dose optimization techniques as appropriate, variously including the following: *Automated exposure control *Adjustment of mA and/or kV according to patient size (this includes techniques or standardized protocols for targeted exams where dose is matched to indication/reason for exam; i.e. extremities or head) *Use of iterative reconstruction technique DLP: 413 mGy-cm FINDINGS: LUNG BASES: 4 mm calcified pulmonary nodule, right lung base. LIVER, GALLBLADDER, AND BILIARY TREE: Liver measures 15 cm. No solid or cystic mass. Main portal veins and hepatic veins are patent. Punctate calcification, right hepatic lobe. Gallbladder is nondistended. No pericholecystic fluid collection or gallbladder wall thickening. No intrahepatic or extrahepatic biliary ductal dilatation.. PANCREAS: No solid or cystic lesion. No peripancreatic fluid collection. No main pancreatic ductal dilatation. SPLEEN: Subcentimeter. Punctate calcifications. No solid or cystic mass. ADRENAL GLANDS AND KIDNEYS: Soft tissue fullness without nodular lesion in either adrenal gland. Right kidney: No solid enhancing renal mass. Subcentimeter cyst throughout the renal cortex. 2 cm exophytic cyst, lower pole. 1.5 mm calcification lower pole of the pelvicalyceal system. Ureter is not dilated. Left kidney: Subcentimeter nonenhancing fluid density lesion at the parapelvic/cortical medullary junction. Subcentimeter cyst in the upper pole and lower pole. No hydronephrosis. No gross nephrolithiasis. Ureter is not dilated. BOWEL LOOPS: Abundant stool. Numerous diverticula in the left hemicolon and transverse colon. No intestinal obstruction pattern. Appendix is normal. No ascites. No pneumoperitoneum. No intestinal wall thickening. No pneumatosis intestinalis. LYMPH NODES: No mesenteric or retroperitoneal lymphadenopathy. VASCULAR: No aneurysm or dissection, abdominal aorta. Mixed plaques in the abdominal aorta wall and iliac arteries. BONES: Multilevel thoracolumbar spondylosis with a shaped curvature. Degenerative changes in the sacroiliac joints with syndesmophyte formation and marginal osteophyte formation. Sclerosis and the sacroiliac joints. Vacuum phenomenon at L5-S1 and L3-4. Decreased intervertebral disc height and marginal osteophyte formation at L5-S1. Facet joint hypertrophy at L4-5. CT/CT abdomen w IV con IMPRESSION: Bilateral renal cysts, largest 7 cm in the left kidney. Diverticular disease. Multilevel spondylosis. Atherosclerosis disease. Prior granulomatous disease. Fleischner guidelines were followed. Electronically signed by: Eduardo Miranda MD 05/13/2025 01:56 PM [facility] RP
[2025-05-13] MEDS: iohexoL 350 MG/ML 100 ML INFUS..BTL IV (13:44)
--- OUTSIDE RECORDS SUMMARY | 2025-05-13 14:49 | XMS_ITS | Clinical Summary ---
Author Organization [facility] Address [address] [place] [address] Phone Care Team Providers Care Gerontology Aide Name Role Phone Fidencio Gray Primary Care Provider [phone] Allergies No known active allergies Medications albuterol [...] LAB CHEMISTRY METHOD 10/08/2024 10:17 AM EDT [facility] Triglycerides 90 0 - 150 mg/dL LAB CHEMISTRY METHOD 10/08/2024 10:17 AM [facility] HDL 33(L) >=40 mg/dL LAB CHEMISTRY METHOD 10/08/2024 10:17 AM [facility] LDL Calculated 67 0 - 100 mg/dL LAB CHEMISTRY METHOD 10/08/2024 10:17 AM [facility] VLDL Cholesterol Adam 18 mg/dL LAB CHEMISTRY METHOD 10/08/2024 10:17 AM [facility] Non HDL Chol. (LDL+VLDL) 85 <145 mg/dL LAB CHEMISTRY METHOD 10/08/2024 10:17 AM [facility] Chol/HDL Ratio 3.6 0.0 - 4.4 LAB CHEMISTRY METHOD 10/08/2024 10:17 AM [facility] Blood Venous blood specimen / Unknown Venipuncture / Unknown 10/08/2024 9:00 AM EDT 10/08/2024 9:18 AM EDT us Christiano BENITEZ LAB BLOOD ORDERABLES Final Resu lt [facility] [address] [place] [address], [place] [phone] * (ABNORMAL) Comprehensive metabolic panel (10/08/2024 9:00 AM EDT) Sodium 140 133 - 145 mmol/L LAB CHEMISTRY METHOD 10/08/2024 10:18 AM [facility] Potassium 4.7 3.5 - 5.5 mmol/L LAB CHEMISTRY METHOD 10/08/2024 10:18 AM [facility] Chloride 106 96 - 110 mmol/L LAB CHEMISTRY METHOD 10/08/2024 10:18 AM [facility] CO2 32 21 - 32 mmol/L LAB CHEMISTRY METHOD 10/08/2024 10:18 AM [facility] Anion Gap 2(L) 3 - 11 LAB CHEMISTRY METHOD 10/08/2024 10:18 AM [facility] Glucose 121(H) 70 - 100 mg/dL LAB CHEMISTRY METHOD 10/08/2024 10:18 AM [facility] BUN 25 5 - 25 mg/dL LAB CHEMISTRY METHOD 10/08/2024 10:18 AM [facility] Creatinine 1.26 0.70 - 1.30 mg/dL LAB CHEMISTRY METHOD 10/08/2024 10:18 AM [facility] eGFR 58(L) >=60 mL/min/1. 73m2 LAB CHEMISTRY METHOD 10/08/2024 10:18 AM [facility] Comment:Calculation based on the Chronic Kidney Disease Epidemiology Collaboration (CKD-EPI) equation refit without adjustment for race. BUN/Creatinine Ratio 19.8 LAB CHEMISTRY METHOD 10/08/2024 10:18 AM [facility] Calcium 9.5 8.5 - 10.5 mg/dL LAB CHEMISTRY METHOD 10/08/2024 10:18 AM [facility] AST (SGOT) 31 10 - 42 unit/L LAB CHEMISTRY METHOD 10/08/2024 10:18 AM [facility] ALT (SGPT) 40 10 - 60 unit/L LAB CHEMISTRY METHOD 10/08/2024 10:18 AM [facility] Alkaline Phosphatase 111 42 - 121 unit/L LAB CHEMISTRY METHOD 10/08/2024 10:18 AM [facility] Total Protein 7.4 6.0 - 8.0 g/dL LAB CHEMISTRY METHOD 10/08/2024 10:18 AM [facility] Albumin 3.8 3.2 - 5.0 g/dL LAB CHEMISTRY METHOD 10/08/2024 10:18 AM [facility] Total Bilirubin 0.8 0.0 - 1.4 mg/dL LAB CHEMISTRY METHOD 10/08/2024 10:18 AM [facility] Blood Venous blood specimen / Unknown Venipuncture / Unknown 10/08/2024 9:00 AM EDT 10/08/2024 9:18 AM EDT us Christiano BENITEZ LAB BLOOD ORDERABLES Final Resu lt [facility] [address] [place] [address], [place] [phone] from Last 3 Months or Most Recently Relevant to Health Maintenance Insurance [employer] Member Subscriber Plan / Payer (Ef fective 2018-Present) Name:Kirby Fierro Relation to Subscriber:Self Name:Kirby Fierro Payer ID:[id number] Group ID:[id number] Type:Not on file Address: [place] [address] [address] [address] [address] Care Teams Gerontology Aide Relationship Specialty Start Date End Date Fidencio Gray PA [address] [place] [address] PCP - General 09/11/24
--- OUTSIDE RECORDS SUMMARY | 2025-05-13 14:49 | XMS_ITS | Clinical Summary ---
Author Organization [facility] Address [address] [place] [address] Care Team Providers Care Window Maker Name Role Phone Fidencio Gray PA-C Primary Care Provider [phone] Source Comments PLEASE NOTE, if this patient [...] as needed for sleep. 30 Tablet 5 025 Active SITagliptin phosphate (JANUVIA) 100 mg tabletIndications:Cont rolled type 2 diabetes mellitus without complication, without long-term current use of insulin TOME MARTIN TABLETA TODOS LOS MEJÍA. 90 Tablet 1 025 Active levothyroxine 100 mcg tabletIndications:Hypo thyroidism, unspecified type Take 1 Tablet by mouth once daily. 90 Tablet 1 025 Active ipratropium-albuteroL (COMBIVENT RESPIMAT) 20-100 mcg/actuation inhalerIndications:Bro nchitis Inhale 1 Puff into the lungs 4 (four) times daily. 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 100 Each 025 2024 Disconti nued(Reo rder (E-Cance l Not Sent)) Active Problems Problem Noted Date [...] of colonoscopy 01/10/2019 Overview (01/10/2019): Done in [place] per pt 2017 Encounters Date Type Department Care Team Description 04/30/2025 2:20 PM EDT Office Visit [facility] [address] [place] [phone] Fidencio Gray PA-C 04/17/2025 1:40 PM EDT Office Visit [facility] [address] [place] [phone] Umm Carroll RN Hernandez, Maria C from Last 3 Months Immunizations Immunization Administration Dates Next Due Flu, High Dose, 65y+, Fluzon e High Dose 06/08/2023,04/27/2021,03/10/2020,02/2020 Flu, Preservative Free 04/19/2022 Hep B, Adult/Adol (AVCEBAQ-S-HGMKF/RECOMBIVAX-ADULT) 07/23/2019,06/21/2019 12/23/2019 Hep B,adult,adjuvanted (HEPLISAV) 05/22/2023 Influenza (FLUZONE), high-do se, trivalent, PF 04/30/2025,05/15/2024,06/28/2019,06/03 Moderna COVID-19 Vaccine, re d cap blue [...] Sign Reading Time Taken Comments Blood Pressure 126/70 04/30/2025 2:17 PM EDT Pulse 61 04/30/2025 2:17 PM EDT Temperature 36.5 C (97.7 F) 04/30/2025 2:17 PM EDT Respiratory Rate 16 04/30/2025 2:17 PM EDT Oxygen Saturation 99% 04/30/2025 2:17 PM EDT Inhaled Oxygen Concentration - - Weight 87.3 kg (192 lb 6.4 oz) 04/30/2025 2:17 P M EDT Height 167.6 cm (5' 6 ) 04/30/2025 2:17 PM EDT Body Mass Index 31.05 04/30/2025 2:17 PM EDT Plan of Treatment Health Maintenance Due Date Last Done Comments Dental Examination 1944 Retinopathy Screening 1957 Medicare Annual Wellness Visit 1962 CT Colonography 1989 FIT/gFOBT 1989 Fecal DNA 1989 Flexible Sigmoidoscopy 1989 Imm-RSV (adult) (1 - 1-dose 75+ series) 2019 Falls Prevention 01/14/2025 01/15/2024, , 09/23/2020, Additional history exists Wlm-RTBEY-94 ( - 2024- season) 2025 02/16/2022, 06/07/2021, 09/12/2020, Additional history exists Urine Albumin Creatinine Rat io Screening 08/29/2025 08/29/2024, 10/31/2022, 04/28/2021 Hemoglobin A1c 10/21/2025 04/22/2025, 08/04, 09/13/2023, Additional history exists Diabetes Foot Exam 04/17/2026 04/17/2025, 1 , 12/05/2023, Additional history exists Lipid Screening 04/22/2026 04/22/2025, 04/0 01/2025, 09/13/2023, Additional history exists Serum Creatinine 04/22/2026 04/22/2025, 01/2025, 09/11/2024, Additional history exists TSH Monitoring 04/22/2026 04/22/2025, 08/31, 01/17/2022, Additional history exists Tobacco Screening 04/30/2026 04/30/2025 Imm-DTaP/Tdap/Td (2 - Td or Tdap) 06/21/2029 019 Colonoscopy 04/27/2032 04/27/2022, 04/03, 03/06/2017 (Managed by Outside Provider) Colorectal Cancer Screening 04/27/2032 Imm-Pneumococcal 50+ Completed 04/27/2021, 06/21/20 19 Imm-Zoster, Recombinant Completed 10/18/2022, 07/20 Imm-Hepatitis B Completed 05/22/2023, 07/04, 06/21/2019 Alcohol and Drug Screen Completed 08/14/19, 01/15/2024, 08/01/2023, Additional history exists Depression Annual Screen Completed 08/14/2024 Imm-Influenza Completed 04/30/2025, 05/03, 06/08/2023, Additional history exists Procedures Procedure Name Priority Date/Time Associated Diagnosis Comments THYROID CASCADING REFLEX PANEL Routine 04/22/2025 8:33 AM EDT Hypothyroidism, unspecified type LIPID PANEL Routine 04/22/2025 8:33 AM EDT Essential hypertension Hypercholesterolemi a Controlled type 2 diabetes mellitus without complication, without long-term current use of insulin HEMOGLOBIN GLYCOSYLATED A1C Routine 04/22/2025 8:33 AM EDT Controlled type 2 diabetes mellitus without complication, without long-term current use of insulin COMPREHENSIVE METABOLIC PANEL Routine 04/22/2025 8:33 AM EDT Essential hypertension Hypercholesterolemi a Controlled type 2 diabetes mellitus without complication, without long-term current use of insulin BLOOD COUNT COMPLETE AUTO&AUTO DIFRNTL WBC Routine 04/22/2025 8:33 AM EDT Essential hypertension Hypercholesterolemi a Controlled type 2 diabetes mellitus without complication, without long-term current use of insulin IMAGING SCANNED DOCUMENT 04/01/2025 3:00 AM EDT IMAGING SCANNED DOCUMENT 04/01/2025 3:00 AM EDT REFERRAL SCANNED DOCUMENT 02/18/2025 3:00 AM EDT MICROALBUMIN/CREATININ E RATIO, URINE, RANDOM Routine 08/29/2024 9:10 AM EST Controlled type 2 diabetes mellitus without complication, without long-term current use of insulin ([facility]) HISTORIC COLONOSCOPY 04/27/2022 3:00 AM EDT from Last 3 Months or Most Recently Relevant to Health Maintenance Results * THYROID CASCADING REFLEX PANEL Routine (04/22/2025 8:33 AM EDT) TSH 1.58 0.40 - 4.50 mIU/L 04/23/2025 7:06 AM EDT [facility] Blood Blood / Unknown 04/22/2025 8 :33 AM EDT 04/23/2025 5:53 AM EDT Narrative [facility] - 04/23/2025 7:08 AM EDT FASTING:YES Fidencio Gray PA-C LAB - BLOOD DRAW Final Resul t [employer] [facility] [address] [address], [facility] [address] [place] [address] * BLOOD COUNT COMPLETE AUTO&AUTO DIFRNTL WBC Routine (04/22/2025 8:33 AM EDT) [facility] WHITE BLOOD CELL COUNT 9.1 3.8 - 10.8 Thousand/ uL 04/23/2025 4:16 AM EDT [facility] RED BLOOD CELL COUNT 4.49 4.20 - 5.80 Million/u L 04/23/2025 4:16 AM EDT [facility] HEMOGLOBIN 14.3 13.2 - 17.1 g/dL 04/23/2025 4:16 AM [facility] HEMATOCRIT 43.2 38.5 - 50.0 % 04/23/2025 4:16 AM [facility] MCV 96.2 80.0 - 100.0 fL 04/23/2025 4:16 AM EDT [facility] MCH 31.8 27.0 - 33.0 pg 04/23/2025 4:16 AM [facility] MCHC 33.1 32.0 - 36.0 g/dL 04/23/2025 4:16 AM [facility] RDW 13.0 11.0 - 15.0 % 04/23/2025 4:16 AM [facility] PLATELET COUNT 150 140 - 400 Thousand/ uL 04/23/2025 4:16 AM [facility] MPV 11.6 7.5 - 12.5 fL 04/23/2025 4:16 AM [facility] ABSOLUTE NEUTROPHILS 6,552 1,500 - 7,800 cells/uL 04/23/2025 4:16 AM [facility] ABSOLUTE LYMPHOCYTES 1,502 850 - 3,900 cells/uL 04/23/2025 4:16 AM [facility] ABSOLUTE MONOCYTES 937 200 - 950 cells/uL 04/23/2025 4:16 AM EDT [facility] ABSOLUTE EOSINOPHILS 64 15 - 500 cells/uL 04/23/2025 4:16 AM EDT [facility] ABSOLUTE BASOPHILS 46 0 - 200 cells/uL 04/23/2025 4:16 AM EDT [facility] NEUTROPHILS PCT 72 % 4:16 AM EDT [facility] LYMPHOCYTES 16.5 % 04/23/2025 4:16 AM EDT [facility] MONOCYTES 10.3 % 04/23/2025 4:16 AM EDT [facility] EOSINOPHILS 0.7 % 04/23/2025 4:16 AM EDT [facility] BASOPHILS 0.5 % 04/23/2025 4:16 AM EDT [facility] Blood Blood / Unknown 04/22/2025 8 :33 AM EDT 04/23/2025 3:28 AM EDT Narrative [facility] - 04/23/2025 4:37 AM EDT FASTING:YES For adults, a slight decrease in the calculated MCHC value (in the range of 30 to 32 g/dL) is most likely not clinically significant; however, it should be interpreted with caution in correlation with other red cell parameters and the patient's clinical condition. us Fidencio Gray PA-C LAB - BLOOD DRAW Final Resul t [email or web address] [address] [place] [address], [facility] [address] [address] * (ABNORMAL) HEMOGLOBIN GLYCOSYLATED A1C Routine (04/22/2025 8:33 AM EDT) HEMOGLOBIN A1C 6.3(H) <5.7 % 04/23/2025 6:48 AM EDT [facility] Blood Blood / Unknown 04/22/2025 8 :33 AM EDT 04/23/2025 3:28 AM EDT Narrative [employer] - 04/23/2025 7:08 AM EDT FASTING:YES For someone without known diabetes, a hemoglobin A1c value between 5.7% and 6.4% is consistent with prediabetes and should be confirmed with a follow-up test. . For someone with known diabetes, a value <7% indicates that their diabetes is well controlled. A1c targets should be individualized based on duration of diabetes, age, comorbid conditions, and other considerations. . This assay result is consistent with an increased risk of diabetes. . Currently, no consensus exists regarding use of hemoglobin A1c for diagnosis of diabetes for children. . us Fidencio Gray PA-C LAB - BLOOD DRAW Final Resul t [facility] [employer] [address] [place] [address], [facility] [address] [address] * (ABNORMAL) LIPID PANEL Routine (04/22/2025 8:33 AM EDT) [facility] CHOLESTEROL, TOTAL 95 <200 mg/dL 04/23/2025 7:00 AM EDT [facility] HDL CHOLESTEROL 36(L) > OR = 40 mg/dL 04/23/2025 7:00 AM EDT [facility] TRIGLYCERIDES 75 <150 mg/dL 04/23/2025 7:00 AM EDT [facility] LDL-CHOLESTEROL 43 mg/dL (calc) 04/23/2025 7:00 AM EDT [facility] CHOL/HDLC RATIO 2.6 <5.0 (calc) 04/23/2025 7:00 AM EDT [facility] NON-HDL CHOLESTEROL 59 <130 mg/dL (calc) 04/23/2025 7:00 AM [employer] [facility] Blood Blood / Unknown 04/22/2025 8 :33 AM EDT 04/23/2025 5:53 AM EDT Narrative [employer] [facility] - 04/23/2025 7:08 AM EDT FASTING:YES Reference range: <100 . Desirable range <100 mg/dL for primary prevention; <70 mg/dL for patients with CHD or diabetic patients with > or = 2 CHD risk factors. . LDL-C is now calculated using the Elton calculation, which is a validated novel method providing better accuracy than the Friedewald equation in the estimation of LDL-C. [place] LECHUGA et al. ANAMARIA. 2013;310(19): 8969-1927 (http://education.Prediculous.[employer]/faq/ICG528) For patients with diabetes plus 1 major ASCVD risk factor, treating to a non-HDL-C goal of <100 mg/dL (LDL-C of <70 mg/dL) is considered a therapeutic option. Fidencio Gray PA-C LAB - BLOOD DRAW Final Resul t [facility] [address] [address], [facility] [address] [place] [address] * (ABNORMAL) COMPREHENSIVE METABOLIC PANEL Routine (04/22/2025 8:33 AM EDT) GLUCOSE 112(H) 65 - 99 mg/dL 04/23/2025 7:00 AM [employer] [facility] UREA NITROGEN (BUN) 21 7 - 25 mg/dL 04/23/2025 7:00 AM [employer] [facility] CREATININE (blood) 1.24(H) 0.70 - 1.22 mg/dL 04/23/2025 7:00 AM [employer] [facility] EGFR 59(L) > OR = 60 mL/min/1. 73m2 04/23/2025 7:00 AM [employer] [facility] BUN/CREATININE RATIO 17 6 - 22 (calc) 04/23/2025 7:00 AM [employer] [facility] SODIUM 138 135 - 146 mmol/L 04/23/2025 7:00 AM [employer] POTASSIUM 4.9 3.5 - 5.3 mmol/L 04/23/2025 7:00 AM [employer] [facility] CHLORIDE 102 98 - 110 mmol/L 04/23/2025 7:00 AM [employer] [facility] CARBON DIOXIDE 31 20 - 32 mmol/L 04/23/2025 7:00 AM [employer] [facility] CALCIUM 9.5 8.6 - 10.3 mg/dL 04/23/2025 7:00 AM [employer] [facility] PROTEIN, TOTAL 7.2 6.1 - 8.1 g/dL 04/23/2025 7:00 AM [employer] [facility] ALBUMIN 4.3 3.6 - 5.1 g/dL 04/23/2025 7:00 AM EDT [facility] GLOBULIN 2.9 1.9 - 3.7 g/dL (calc) 04/23/2025 7:00 AM EDT [facility] ALBUMIN/GLOBULI N RATIO 1.5 1.0 - 2.5 (calc) 04/23/2025 7:00 AM EDT [facility] BILIRUBIN, TOTAL 0.8 0.2 - 1.2 mg/dL 04/23/2025 7:00 AM EDT [facility] ALKALINE PHOSPHATASE 92 35 - 144 U/L 04/23/2025 7:00 AM EDT [facility] AST 29 10 - 35 U/L 04/23/2025 7:00 AM EDT [facility] ALT 49(H) 9 - 46 U/L 04/23/2025 7:00 AM EDT [facility] Blood Blood / Unknown 04/22/2025 8 :33 AM EDT 04/23/2025 5:53 AM EDT Narrative [facility] - 04/23/2025 7:08 AM EDT FASTING:YES . Fasting reference interval . For someone without known diabetes, a glucose value between 100 and 125 mg/dL is consistent with prediabetes and should be confirmed with a follow-up test. . [facility] Gray PA-C LAB - BLOOD DRAW Final Resul t [email or web address] [address] [place] [address], [facility] [address] [address] * IMAGING SCANNED DOCUMENT (04/01/2025 3:00 AM EDT) Only the most recent of2 resultswithin the time period is included. 04/01/2025 3:00 AM EDT [facility] Gray PA-C SCAN IMAGING Final Result * REFERRAL SCANNED DOCUMENT (02/18/2025 3:00 AM EDT) 02/18/2025 3:00 AM EDT us Fidencio Gray PA-C SCAN REFERRAL Final Result * MICROALBUMIN/CREATININE RATIO, URINE, RANDOM (08/29/2024 9:10 AM EST) CREATININE, RANDOM URINE 110 20 - 320 mg/dL [facility] MICROALBUMIN 0.7 mg/dL [facility] Comment: Reference Range Not established MICROALBUMIN/CREA TININE RATIO, RANDOM URINE 6 <30 mg/g creat [facility] Comment: The ADA defines abnormalities in albumin [...] AM EST 08/29/2024 9:11 AM EST Narrative [facility] - 09/02/2024 6:32 AM EST DIFFICULT DRAW FASTING:YES DIFFICULT DRAW. PATIENT ADVISED TO RETURN FOR CO Fidencio Gray PA-C LAB URINE AMBULATORY Final R esult [facility] [address] [address], [facility] [address] [address] * HISTORIC COLONOSCOPY (04/27/2022 3:00 AM EDT) 04/27/2022 3:00 AM EDT Roberto Fiore MD PROCEDURES Final Result from Last 3 Months or Most Recently Relevant to Health Maintenance Insurance [facility] Care Teams Window Maker Relationship Specialty Start Date End Date Fidencio Gray PA-C [address] [place] [address] PCP - General FAMILY MEDICINEEMMANUEL 08/26/20
--- OUTSIDE RECORDS SUMMARY | 2025-05-13 14:49 | XMS_ITS | Data Portability ---
Author Organization [place] - [facility], [facility] Address [address] [place] [address] Assessment No assessment recorded. Plan of Treatment [...] 4V right knee pain 2024 025 [email or web address] [facility], [address] [facility], [address], [address], 02/24/2025 10:52:04 Medication Orders None recorded . [...] a4ajBk vP9nXo QUaueC m3YtLR FvZlgJ JJ8mAn HZtai3 2e2881 AC0Klb 3mCV6u iKiQtr MwF INTERFACE [facility] [address], [place], [address], 02/24/2025 08:44:33 08/25/02/24/2025 XR, knee, 4 or more view http:/ [email or web address] ?Encry pted=s hAaTro YD8dLq bEUv6g %2BXZw aYqtaq 0bqfl% 2Fg9IQ a4ajBk vP9nXo QUaueC m3YtLR FvZlgJ JJ8mAn HZtai3 0p0766 AC0Klb 3mCV6u iKiQtr MwF INTERFACE [facility] [address] [facility] [address], [place], [address], 02/24/2025 08:44:35 Result Notes Documentation Provider Name and Address Organization Details Recorded Time Xr, Knee, 4 Or More View : [email or web address] Encrypted=gmGnJpqNA3fVzuX Uv6g%3UNRlgZteyn6nfew%2Fg 3IBq4qwBpoD1aUxFXvcuEx3Yx CNIaAbvXDK8dJaTNefo73t579 2MS1Azq6jTP9eyPhIkyXdF Not Available [facility] 02/24/2025 08:44: 34 Xr, Knee, 4 Or More View : [email or web address] Encrypted=weRmChxNE1yQeyR Uv6g%5ZOKzxOseol5zzil%2Fg 9YYt5hyXluO6iOcPAyfjDi5Ui LVZrCesIRM0bCgMNtzs32c362 6DR0Ugc2wAP6imRrQwyYoG Not Available [facility] 02/24/2025 08:44: 36 Procedures Surgical History Date Name Laterality Status Provider Name and Address Organization Details Recorded Time 02/24/2025 Sports Knee 4&1 completed Altagracia Jean PA-C [address] [facility] [address], [place], [address], [facility] 02/24/2025 09:05:36 Imaging Results [...] tablet TOME 1 TABLETA POR VIA ORAL DOS VECES AL LISA active Not Available Not Available No t [...] Not Available Not Available No t Available polyethylene glycol 3350 17 gram/dose oral powder TAKE 17 GM [...] 5 mg tablet TOME MARTIN TABLETA POR VIA ORAL CADA NOCHE active Not Available Not Available N ot Available Combivent Respimat 20 mcg-100 mcg/actuatio n solution for inhalation INHALE 1 PUFF INTO THE LUNGS 4 TIMES DAILY. active Not Available Not Available No t Available Linzess 72 mcg capsule TOME 1 C PSULA POR V A ORAL TODOS LOS D INSTR:DO NOT CRUSH OR CHEW active Not Available [...] ICD10 Code Diagnosis IMO Codes Diagnosis Note [id number] YUMIKO [facility] - [place] [address] [place] [address] 02/24/2025 08:09:40 03/04/2025 13:21:59 Pain of right knee joint [id number] 43847 M25.561 [id number] Osteoarthr itis of right knee joint [id number] 52223 M17.11 [id number] Health Concerns Section Related Observation LastModified by Organization Detai ls LastModified Time None Recorded Concern Status LastModified by Organization Details LastModified Time None Recorded Advance Directives Directive None Recorded Payers Insurance Date Sequence Insurance Name Policy Number Policy Augustine Covered Member ID Augustine Member ID Guarantor Name 05/12/2025 1 [facility] - DOS ON OR AFTER 2022 - ONE CARE (MEDICARE REPLACEMENT/AD VANTAGE - HMO) Kirby Robb [id number] Kirby Robb Notes Date Note Type Note Provider Name and Address Organization Details Recorded Time 02/24/2025 text/html I am seeing the patient today under the supervision of Dr. SHEIKH who was available but who did not see the patient. HPI: Patient presents today [facility] regarding their right knee. They have had difficulty up and down stairs sitting standing. Problems ambulating. Vokp-fnr-pvxzhir medications are helping somewhat but not significantly. [...] All questions answered Altagracia Jean PA-C [address] [facility] [address] [facility], [place], [address], [facility] 02/24/2025 09:05:55
--- OUTSIDE RECORDS SUMMARY | 2025-05-13 14:49 | XMS_ITS | Clinical Summary ---
Author Organization [facility] Address [address] [place], [place] [address] Phone Care Team Providers Care Weight Loss Centre Manager Name Role Phone Pcp, Unknown Primary Care [...] patient's age to complete this topic IPV VACCINES Aged Out No longer eligi ble based on patient's age to complete this topic MENINGOCOCCAL VACCINES (ACWY) Aged Out No longer eligible based on patient's age to complete this topic MENINGOCOCCAL VACCINES (B) Aged Out N o longer eligible based on patient's age to complete this topic Medical Devices Not on file Insurance [facility] MEDICARE [place] [address] [place] [address] MEDICARE REPLACEMENT [facility] MEDICARE REPLACEMENT [facility] MEDICARE REPLACEMENT [facility] MEDICARE REPLACEMENT Care Teams Weight Loss Centre Manager Relationship Specialty Start Date End Date Pcp, Unknown PCP - General 07/31/23 Additional Source Comments The information contained in this document represents components of the legal health record. It is not the complete legal health record.[facility]
--- OUTSIDE RECORDS SUMMARY | 2025-05-13 14:50 | XMS_ITS | Encounter Summary ---
Author Organization [facility] Address [address] [place] [phone] Phone Care Team Providers Care Power Washer Name Role Phone Pcp, Unknown Primary Care Provider Unavailabl e Encounter Details Date Type Department Care Team (Late st Contact Info) Description 09/08/2023 Procedure Pass OR Admitting Dept - Virtual Department [address] [place] [address] Social History Tobacco Use Types Packs/Day Years [...] on filedocumented in this encounter Care Teams Power Washer Relationship Specialty Start Date End Date Pcp, Unknown PCP - General 07/31/23 documented as of this encounter Additional Source Comments The information contained in this document represents components of the legal health record. It is not the complete legal health record.[facility]
[2025-05-14 10:48] LABS: Creatinine POC 1.1 mg/dL (0.5-1.4); GFR POC > 60
== END 2025-05-13 13:05 | disposition home or self-care (01) ==
LOC: HO.CT 13:04
PROVIDERS: PCP Nurse Practitioner Primary Care; Visit Provider Internal Medicine Nephrology
DX: N28.1 Cyst of kidney, acquired (principal)
CPT/HCPCS: 74160; 82565; Q9967

== ENCOUNTER → 2025-05-13 13:06 | Outpatient (BNV) | payer OTHER, SELFPAY | PROVIDERS: PCP Nurse Practitioner Primary Care; Visit Provider Radiology Diagnostic Radiology | DX: N28.1 Cyst of kidney, acquired (principal); K57.90 Diverticulosis of intestine, part unspecified, without perforation or abscess without bleeding; I70.90 Unspecified atherosclerosis; M47.9 Spondylosis, unspecified | CPT/HCPCS: 74160 ==

== ENCOUNTER 2025-06-05 09:49 | Outpatient (AMB) | payer OTHER, SELFPAY ==
--- NOTE | 2025-06-05 09:54 | HO.NEPHOV_ITS ---
Vital Signs 06/05/25 09:56 Height 5 ft 6 in Weight 191 lb 6 oz BMI 30.9 BP 110/70 Blood Pressure Location Lt brachial Position Sitting Pulse 57 Pulse Source Pulse Oximeter Pulse Oximetry (%) 98 Oxygen Delivery Method Room Air Intake Visit Reasons: Sooner appt- CT results Lightning Protection Installer Required: Yes Lightning Protection Installer Language: Functional Analyst Services: Lightning Protection Installer Present Lightning Protection Installer Name: Jose Daniel [id number] Information Interpreted: clinical only Accompanied by: Self / Same As Patient Allergies No Known Allergies Allergy (Verified 06/05/25 09:56) HPI Comments Details: Kirby in follow up who has a history of renal stones and renal cysts. He had moved from [place] about 6 years ago. He has not had any symptomatic episode of renal calculus for a long time. He is a diabetic and has hypertension. He does not take nonsteroidal anti-inflammatories on a regular basis and try to maintain good hydration. He does not have any hematuria, edema, hypercalcemia. His serum creatinine been stable. He did not have any new systemic complaints at the time of this office visit. [facility] Medical History (Updated 01/30/24 @ 12:29 by Paul Whyte MD) Transient cerebral ischemia Primary open angle glaucoma Parkinson's disease Meckels diverticulum Hypothyroidism Hypercholesterolemia Fatty liver Hypertension Diverticulitis DM w/o complication type II Renal cyst Age-related nuclear cataract, bilateral Surgical History History of colonoscopy Social History Alcohol intake: never Patient Tobacco Use Status: Never used Tobacco Review of Systems Const All systems reviewed & are unremarkable except as noted in HPI and below Physical Exam Vital Signs: Last Vital Signs Pulse 57 06/05/25 09:56 BP 110/70 06/05/25 09:56 Pulse Ox 98 06/05/25 09:56 Oxygen Delivery Method Room Air 06/05/25 09:56 BMI result Body Mass Index 30.9 Const General: comfortable and no acute distress Orientation/consciousness: patient oriented x3 HEENT Head: Yes normocephalic Mouth: Normal oral and palatal mucosa present Eyes EOM: EOMs intact bilaterally Neck Neck: Yes supple Resp Auscultation: clear to auscultation bilaterally Cardio Jugular venous distension: no JVD Rate: regular rate GI Palpation (GI): Soft to palpation Auscultation: normal bowel sounds General: Yes no CVA tenderness Back/Spine/Pelvis Back: no CVA tenderness Skin General skin exam: no rashes or lesions noted Neuro General: patient oriented x3 and moves all extremities Extrem General: Yes no pedal edema Results Reviewed Nephrology Results: Sodium, (135-145) 140 mmol/L 02/11/25 Potassium, (3.3-5.1) 4.7 mmol/L 02/11/25 Chloride, (96-108) 105 mmol/L 02/11/25 Carbon Dioxide, (22-29) 30 mmol/L H 02/11/25 BUN, (9-16) 23 mg/dL H 02/11/25 Creatinine, (0.5-1.4) 1.23 mg/dL 02/11/25 Calcium, (8.4-10.2) 9.2 mg/dL 02/11/25 Urine Protein, (Neg-Trace) Negative mg/dL 02/11/25 Urine Creatinine 142.59 mg/dL 02/11/25 Protein/Creatinin Ratio TNP 02/11/25 Renal US 04/01/25 Assessment & Plan Assessment & Plan (1) Hypertension: Code(s): I10 - Essential (primary) hypertension Category: Medical Qualifiers: Hypertension type: primary hypertension Qualified Code(s): I10 - Essential (primary) hypertension (2) Renal cyst: Code(s): N28.1 - Cyst of kidney, acquired Category: Medical (3) Renal calculus: Code(s): N20.0 - Calculus of kidney Category: Medical Plan iKrby has history hypertension, renal cyst and renal calculus. His blood pressure is at goal. He has no family history of renal stones or renal cyst. He has no family history of any cystic renal disease, ESRD or renal transplant. His renal functions is stable. His blood pressure is at goal. He is tolerating SILVIA-inhibitor. He has no proteinuria. He should maintain good hydration and keep with low-sodium diet. He should maintain appropriate blood sugar and blood pressure goals. He should eat more fruits and vegetables and consume less meat. He may need hydrochlorothiazide and or potassium citrate in the future. I ordered F/U MRI imaging of his renal cyst . I also referred him to Urology. I did not make any medication changes today. Follow-up appointment given. Answered all questions. Orders: Orders MR abdomen wo/w con Today N28.1 - Cyst of kidney, acquired UA and rflx microscopic 6 Months N20.0 - Calculus of kidney, N28.1 - Cyst of kidney, acquired Protein Creatinine Ratio, Ur 6 Months N20.0 - Calculus of kidney, N28.1 - Cyst of kidney, acquired Creatinine 6 Months N20.0 - Calculus of kidney, N28.1 - Cyst of kidney, acquired Blood Urea Nitrogen 6 Months N20.0 - Calculus of kidney, N28.1 - Cyst of kidney, acquired Electrolytes 6 Months N20.0 - Calculus of kidney, N28.1 - Cyst of kidney, acquired Calcium 6 Months N20.0 - Calculus of kidney, N28.1 - Cyst of kidney, acquired Referrals Urology Referral N20.0 - Calculus of kidney, N28.1 - Cyst of kidney, acquired Coding Level of Care Code Est Pt Level 4 (38499) Diagnoses Primary hypertension I10 Hypertension type: primary hypertension Renal cyst N28.1 Renal calculus N20.0
[2025-06-05 09:56] VITALS: BP 110/70; PULSE 57; O2SAT 98; BMI 30.9
--- OUTSIDE RECORDS SUMMARY | 2025-06-05 11:24 | XMS_ITS | Clinical Summary ---
Author Organization [facility] Address [address] [facility] [address] [place] [address] Phone Care Team Providers Care Grader Meat Name Role Phone Fidencio Gray PA-C Primary Care Provider [phone] Allergies No known active allergies Medications Aspirin [...] 04/27/2021, 06/21/2019 Insurance Care Dual SNP ([id number]) [facility] Care Dual SNP ([id number]) Care Teams Grader Meat Relationship Specialty Start Date End Date Fidencio Gray PA-C [address] [place] [address] PCP - General Physician Furnace Firer 04/20/22
--- OUTSIDE RECORDS SUMMARY | 2025-06-05 11:24 | XMS_ITS | Clinical Summary ---
Author Organization [facility] Address [address] [place], [place] [id number] Phone Care Team Providers Care Payroll Analyst Name Role Phone Pcp, Unknown Primary Care [...] topic Medical Devices Not on file Insurance [facility] MEDICARE REPLACEMENT [address] [id number] [facility] MEDICARE REPLACEMENT [place] [address] [id number] [facility] MEDICARE [place] [address] MEDICARE REPLACEMENT [facility] MEDICARE REPLACEMENT Care Teams Payroll Analyst Relationship Specialty Start Date End Date Pcp, Unknown PCP - General 1/29/24 Additional Source Comments The information contained in this document represents components of the legal health record. It is not the complete legal health record.[facility]
--- OUTSIDE RECORDS SUMMARY | 2025-06-05 11:24 | XMS_ITS | Encounter Summary ---
Author Organization [facility] Address [address] [place] [phone] Phone Care Team Providers Care Program Director/Morning Show Host Name Role Phone Pcp, Unknown Primary Care Provider Unavailabl e Encounter Details Date Type Department Care Team (Late st Contact Info) Description 09/08/2023 Procedure Pass OR Admitting Dept - Virtual Department [address] [place] [address] Social History Tobacco Use Types Packs/Day Years [...] on filedocumented in this encounter Care Teams Program Director/Morning Show Host Relationship Specialty Start Date End Date Pcp, Unknown PCP - General 07/31/23 documented as of this encounter Additional Source Comments The information contained in this document represents components of the legal health record. It is not the complete legal health record.[facility]
--- OUTSIDE RECORDS SUMMARY | 2025-06-05 11:24 | XMS_ITS | Clinical Summary ---
Author Organization [facility] Address [address] [place] [address] Phone Care Team Providers Care Ironer Or Presser Name Role Phone Fidencio Gray Primary Care Provider [phone] Allergies No known active allergies Medications albuterol [...] CHEMISTRY METHOD 10/08/2024 10:17 AM EDT [facility] Triglycerides 90 0 - 150 mg/dL LAB CHEMISTRY METHOD 10/08/2024 10:17 AM [facility] HDL 33(L) >=40 mg/dL LAB CHEMISTRY METHOD 10/08/2024 10:17 AM [facility] LDL Calculated 67 0 - 100 mg/dL LAB CHEMISTRY METHOD 10/08/2024 10:17 AM [facility] VLDL Cholesterol Adam 18 mg/dL LAB CHEMISTRY METHOD 10/08/2024 10:17 AM [facility] Non HDL Chol. (LDL+VLDL) 85 <145 mg/dL LAB CHEMISTRY METHOD 10/08/2024 10:17 AM [facility] Chol/HDL Ratio 3.6 0.0 - 4.4 LAB CHEMISTRY METHOD 10/08/2024 10:17 AM [facility] Blood Venous blood specimen / Unknown Venipuncture / Unknown 10/08/2024 9:00 AM EDT 10/08/2024 9:18 AM EDT us Christiano [facility]ITE[facility] LAB BLOOD ORDERABLES Final Resu lt [facility] [address] [place] [address], [place] [phone] * (ABNORMAL) Comprehensive metabolic panel (10/08/2024 9:00 AM EDT) Sodium 140 133 - 145 mmol/L LAB CHEMISTRY METHOD 10/08/2024 10:18 AM [facility] Potassium 4.7 3.5 - 5.5 mmol/L LAB CHEMISTRY METHOD 10/08/2024 10:18 AM [facility] Chloride 106 96 - 110 mmol/L LAB CHEMISTRY METHOD 10/08/2024 10:18 AM [facility] CO2 32 21 - 32 mmol/L LAB CHEMISTRY METHOD 10/08/2024 10:18 AM [facility] Anion Gap 2(L) 3 - 11 LAB CHEMISTRY METHOD 10/08/2024 10:18 AM [facility] Glucose 121(H) 70 - 100 mg/dL LAB CHEMISTRY METHOD 10/08/2024 10:18 AM [facility] BUN 25 5 - 25 mg/dL LAB CHEMISTRY METHOD 10/08/2024 10:18 AM [facility] Creatinine 1.26 0.70 - 1.30 mg/dL LAB CHEMISTRY METHOD 10/08/2024 10:18 AM [facility] eGFR 58(L) >=60 mL/min/1. 73m2 LAB CHEMISTRY METHOD 10/08/2024 10:18 AM [facility] Comment:Calculation based on the Chronic Kidney Disease Epidemiology Collaboration (CKD-EPI) equation refit without adjustment for race. BUN/Creatinine Ratio 19.8 LAB CHEMISTRY METHOD 10/08/2024 10:18 AM [facility] Calcium 9.5 8.5 - 10.5 mg/dL LAB CHEMISTRY METHOD 10/08/2024 10:18 AM [facility] AST (SGOT) 31 10 - 42 unit/L LAB CHEMISTRY METHOD 10/08/2024 10:18 AM [facility] ALT (SGPT) 40 10 - 60 unit/L LAB CHEMISTRY METHOD 10/08/2024 10:18 AM [facility] Alkaline Phosphatase 111 42 - 121 unit/L LAB CHEMISTRY METHOD 10/08/2024 10:18 AM [facility] Total Protein 7.4 6.0 - 8.0 g/dL LAB CHEMISTRY METHOD 10/08/2024 10:18 AM [facility] Albumin 3.8 3.2 - 5.0 g/dL LAB CHEMISTRY METHOD 10/08/2024 10:18 AM [facility] Total Bilirubin 0.8 0.0 - 1.4 mg/dL LAB CHEMISTRY METHOD 10/08/2024 10:18 AM [facility] Blood Venous blood specimen / Unknown Venipuncture / Unknown 10/08/2024 9:00 AM EDT 10/08/2024 9:18 AM EDT us Christiano [facility]ENITEZ LAB BLOOD ORDERABLES Final Resu lt [facility] [address] [place] [address], [place] [phone] from Last 3 Months or Most Recently Relevant to Health Maintenance Insurance [employer] MEDICARE Member Subscriber Plan / Payer (Ef fective 2018-Present) Name:Kirby Fierro Relation to Subscriber:Self Name:Kirby Fierro Payer ID:[id number] Group ID:[id number] Type:Not on file Address: [place] [address] [address] [phone] Care Teams Ironer Or Presser Relationship Specialty Start Date End Date Fidencio Gray PA [address] [place] [address] PCP - General 09/11/24
== END 2025-06-05 10:17 | disposition home or self-care (01) ==
LOC: HO.HKAS 09:50
PROVIDERS: PCP Nurse Practitioner Primary Care; Visit Provider Internal Medicine Nephrology
DX: I10 Essential (primary) hypertension (principal); N28.1 Cyst of kidney, acquired; N20.0 Calculus of kidney
CPT/HCPCS: 99214

== ENCOUNTER → 2025-06-05 09:49 | Outpatient (BNVA) | payer OTHER, SELFPAY | PROVIDERS: PCP Nurse Practitioner Primary Care; Visit Provider Internal Medicine Nephrology | DX: N20.0 Calculus of kidney (principal); N28.1 Cyst of kidney, acquired; I10 Essential (primary) hypertension | CPT/HCPCS: 99212 ==